=== PATIENT | male | born 1945 | race Caucasian/White ===

== ENCOUNTER 2019-08-13 19:30 | Inpatient (IN) | payer MEDICARE ==
[~2019-08-13] VITALS: Ht 177.8 cm; Wt 65.8 kg
[2019-08-13] MEDS ORDERED: LORazepam 2 MG TAB PO ONE (21:00)
[2019-08-13 22:15] LABS: HEMATOCRIT 38.2 % (42.0-52.0); HEMOGLOBIN 13.4 g/dl (13.5-17.5); MEAN CORPUSCULAR HEMOGLOBIN 33.5 pg (27.0-33.0); MEAN CORPUSCULAR HGB CONC 35.1 g/dl (32.0-36.5); MEAN CORPUSCULAR VOLUME 95.5 fl (80.0-96.0); PLATELET COUNT, AUTOMATED 150 10^3/uL (150-450); WHITE BLOOD COUNT 3.5 10^3/uL (4.0-10.0)
[2019-08-13] MEDS ORDERED: OLANZapine INTRAMUSCULAR 10 MG VIAL (S0166) IM ONE (22:15)
[2019-08-13 23:03] LABS: AMPHETAMINES LEVEL URINE NEGATIVE (NEGATIVE); BARBITURATES URINE NEGATIVE (NEGATIVE); BENZODIAZEPINES URINE NEGATIVE (NEGATIVE); CANNABINOIDS URINE NEGATIVE (NEGATIVE); COCAINE METABOLITE URINE NEGATIVE (NEGATIVE); METHADONE URINE NEGATIVE (NEGATIVE); OPIATES URINE NEGATIVE (NEGATIVE); PHENCYCLIDINE URINE NEGATIVE (NEGATIVE)
[2019-08-13 23:09] LABS: ACETAMINOPHEN LEVEL < 2.0 UG/ML (10.0-30.0); ALBUMIN 3.8 GM/DL (3.2-5.2); ALT/SGPT 28 U/L (12-78); BILIRUBIN,DIRECT 0.4 MG/DL (0.0-0.2); BILIRUBIN,TOTAL 1.8 MG/DL (0.2-1.0); BLOOD UREA NITROGEN 15 MG/DL (7-18); CALCIUM LEVEL 8.7 MG/DL (8.8-10.2); CARBON DIOXIDE LEVEL 26 MEQ/L (21-32); CHLORIDE LEVEL 109 MEQ/L (98-107); CK-MB VALUE MASS 2.8 NG/ML (<3.6); CPK CREATINE PHOSPHOKINASE 218 U/L (39-308); ETHYL ALCOHOL (ETHANOL) < 0.003 % (0.000-0.010); GLOMERULAR FILTRATION RATE > 60.0 (>42); GLUCOSE, FASTING 86 MG/DL (70-100); MB/CK RELATIVE INDEX 1.28 (< OR =4); POTASSIUM SERUM 3.8 MEQ/L (3.5-5.1); SALICYLATE LEVEL < 1.7 MG/DL (5.0-30.0); SODIUM LEVEL 140 MEQ/L (136-145); TOTAL PROTEIN 6.8 GM/DL (6.4-8.2); TROPONIN I 0.04 NG/ML (< 0.10)
[2019-08-14] MEDS ORDERED: REVL15CA PO (00:48)
[2019-08-14] MEDS ORDERED: PATIENT COMMENTS (00:48)
[2019-08-14] MEDS ORDERED: DONE10TA90 PO (00:48)
[2019-08-14] MEDS ORDERED: FLOM0.4C39 PO (00:48)
[2019-08-14] MEDS ORDERED: LOPE-25 PO (01:32)
[2019-08-14] MEDS ORDERED: MAGN250T22 PO (01:37)
[2019-08-14] MEDS ORDERED: ASPI81TA85 PO (01:37)
[2019-08-14] MEDS ORDERED: VITAD1000T PO (01:41)
[2019-08-14] MEDS ORDERED: LORazepam 2 MG TAB PO STA (10:48)
[2019-08-14] MEDS ORDERED: OLANZapine INTRAMUSCULAR 10 MG VIAL (S0166) As Ordered ONE (10:52)
[2019-08-14] MEDS ORDERED: ALPRAZolam 0.25 MG TAB PO ONE (11:00)
[2019-08-14] MEDS ORDERED: OLANZapine INTRAMUSCULAR 10 MG VIAL (S0166) IM ONE (11:00)
[2019-08-14] MEDS: ASPIRIN 81 MG ENTERIC TAB PO SCH (11:21)
[2019-08-14] MEDS: VITAMIN D 1,000 INTERNATIONAL UNITS TABLET PO SCH (11:22)
[2019-08-14] MEDS ORDERED: HALOPERIDOL 5 MG/ML VIAL (J1630) As Ordered ONE (14:52)
--- NOTE | 2019-08-14 15:12 | IPNPDOC ---
Date Seen The patient was seen on 08/14/19. Progress Note SUBJECTIVE: 74-year-old male with past medical history of Alzheimer's dementia and multiple myeloma (on Revlimid) was admitted overnight for combative behavior and concern for patient safety. Patient is normally cared for by her who is currently on a cruise, has been cared for by his kids over the past few weeks, has become increasingly combative with verbal abuse. Patient locked his kids outside the house last night, place very involved and brought the patient to the hospital. Patient does not recall these events, does not wish to discuss anything with me or his son at bedside, appears to not comprehend his current situation and wishing to leave the hospital immediately. Patient's son is concerned about the patient's safety as patient does not recall and understand what he is doing. Patient reports no complaints and is adamant about leaving, received Zyprexa and Ativan overnight, and another dose of Zyprexa was given in the morning, remains combative and requiring multiple people to keep him from harming others. Psychiatry was consulted regarding an official evaluation for capacity prior to allowing the patient to leave. PHYSICAL EXAMINATION: VITAL SIGNS: Please see below. Patient is pretty distraught about his current situation and refuses physical examination. LABORATORY DATA, IMAGING STUDIES, MICROBIOLOGY: Please see below. ASSESSMENT AND PLAN: 74-year-old male with past medical history of Alzheimer's dementia and multiple myeloma admitted overnight for combative behavior and safety concerns. PROBLEMS: 1. Combative behavior: History of Alzheimer's dementia, unaware of current situation, does not recall recent events that brought him to the hospital, jas ntly wishing to leave AGAINST MEDICAL ADVICE, PFS involved, psychiatry consulted regarding capacity, will attempt to keep patient calm until evaluated by psychiatry, with like to avoid restraining the patient against his will, but he has no outlook given his dementia and there is reasonable concern for the safety of patient and others around him based on what his son is telling me. PFS to arrange for placement if patient is to stay. 2. Alzheimer's dementia: Continue donepezil. 3. Multiple myeloma:. Continue Revlimid. VS, I&O, 24H, Fishbone Vital Signs/I&O Vital Signs Date Time Temp Pulse Resp B/P (MAP) Pulse Ox O2 Delivery O2 Flow Rate FiO2 08/13/19 19:36 97.2 67 18 147/60 (89) 99 Room Air Laboratory Data 24H LABS Laboratory Tests 2 08/13/19 19:52: Urine Color STRAW, Urine Appearance CLEAR, Urine pH 6.0, Urine Specific [place] 1.003, Urine Protein NEGATIVE, Urine Glucose (UA) NEGATIVE, Urine Ketones NEGATIVE, Urine Blood NEGATIVE, Urine Nitrite NEGATIVE, Urine Bilirubin NEGATIVE, Urine Urobilinogen 0.2, Urine Leukocyte Esterase NEGATIVE, Urine WBC (Auto) 1, Urine RBC (Auto) 2, Urine Hyaline Casts (Auto) 0, Urine Bacteria (Auto) NEGATIVE, Urine Squamous Epithelial Cells 0, Urine Sperm (Auto) 08/13/19 22:08: Nucleated Red Blood Cells % (auto) 0.0, Anion Gap 5L, Glomerular Filtration Rate > 60.0, Calcium Level 8.7L, Total Bilirubin 1.8H, Direct Bilirubin 0.4H, Aspartate Amino Transf (AST/SGOT) 22, Alanine Aminotransferase (ALT/SGPT) 28, Alkaline Phosphatase 51, Total Creatine Kinase 218, Creatine Kinase MB 2.8, Creatine Kinase MB Relative Index 1.28, Troponin I 0.04, Total Protein 6.8, Albumin 3.8, Albumin/Globulin Ratio 1.27, Thyroid Stimulating Hormone (TSH) 2.950, Salicylates Level < 1.7L, Urine Opiates Screen NEGATIVE, Urine Methadone Screen NEGATIVE, Acetaminophen Level < 2.0L, Urine Barbiturates Screen NEGATIVE, Urine Phencyclidine Screen NEGATIVE, Urine Amphetamines Screen NEGATIVE, Urine Benzodiazepines Screen NEGATIVE, Urine Cocaine Metabolite Screen NEGATIVE, Urine Cannabinoids Screen NEGATIVE, Ethyl Alcohol Level < 0.003 CBC/BMP Laboratory Tests 08/13/19 22:08 JOSEPHINE JERONIMO MD Aug 14, 2019 15:12
[2019-08-14] MEDS ORDERED: HALOPERIDOL 5 MG/ML VIAL (J1630) IM ONE (15:30)
[2019-08-14] MEDS: LENALIDOMIDE 15 MG PO SCH (16:00)
--- NOTE | 2019-08-14 18:52 | HPE ---
DATE OF ADMISSION: 08/13/2019 CHIEF COMPLAINT: Worsening aggressive and violent behavior secondary to Alzheimer's dementia. HISTORY OF PRESENTING ILLNESS: A 74-year-old male brought in by patient's son and daughter, escorted by a real estate instructor due to worsening violent behavior at home. The patient's , Ludmila, is currently on a cruise and unaware of the events currently. The patient's son, Real, provides most of the history and patient's daughter, Za, has been helping at home to watch him while the mother is away. According to the son, Real, who lives in [place], phone number [phone], around May patient became violent and upset while they were having [place] dinner with eight people in the house, all relatives. The patient got up and stood up and said, "Get the F out of my house." The mother has not had a break in 3 years and has been caring for him at home since they have been since the age of 14, over 60 years, she has been managing until recently in May when he has been much more violent and verbally abusive. The son, Real, and Za decided that the mother needed a break and promised her that they would take care of him at home taking turns. According to the son, he had taken care of him yesterday, he required a lot of de-escalation and reorientation as he was getting antsy and looking for his . They told him that she was taking a break and was on a cruise and that they will be watching him. The patient has been unable to pay attention watching television, usually gets very angry with his son when he said to change the channel, he could not remember what he was watching. When the son decided to leave, daughter, Za, was watching the father. She became very intimated by the father yelling out that "you should get out of my house, get the F out of here." He then called his son, who was on his way back home to [place], and he was already in [place] when the father asked "why Za was watching him and why the F she was there." The son then headed back to [place] as he was driving back to [place] and was already in [place] in order to help diffuse the situation. His sister left the house, waiting outside in the driveway as the father became much more verbal and intimidating. They called their aunt, who is their mother's sister, to come back into the house. She brought some food and settled him down. They brought a grandchild who works in the medical field to help redirect him. He then calmed down slightly. They had called the patient's neurologist, Dr. Jac Lopez, out of [facility], but his partner recommended no psychiatric admission, but to continue with evaluation in the ER. While the patient was with his [id number] in the home eating, he appeared to have calmed down slightly. Za and Real were outside driving around when they saw a real estate instructor, they flashed and flagged him down and discussed the case with him to see if the father could be brought in as a psychiatric emergency. The real estate instructor said that he would be around patrolling the area until 11:00, but he recommended to call 911. The aunt in the home said that he was becoming more agitated again, so they decided to call 911. They requested for an ambulance to be brought in with no flashing lights. The real estate instructor brought them in, however, and in the ER, he was found to be extremely agitated and was yelling and screaming about why he was in the hospital. He did receive intramuscular olanzapine 10 mg and Ativan 2 mg orally. Per the son at the bedside, Ativan did not do very much, he became much more agitated but the olanzapine seemed to have settled him down. He tells me that the mother has been dealing with this for the past 3 years, and they would prefer to have him home but they are afraid that he is becoming much more violent and she will be unable to care for him by herself. Despite providing help, they are requesting for possible placement, but should he respond to medical treatment with control of his violent behavior, they are open to working out a safe plan for home discharge. PAST MEDICAL HISTORY: Multiple myeloma, Alzheimer's dementia, vertigo, tinnitus, eustachian tube dysfunction, allergic rhinosinusitis. PAST SURGICAL HISTORY: Colonoscopy. ALLERGIES: No known drug allergies. HOME MEDICATIONS: - aspirin 81 mg daily - vitamin D 1000 units daily - donepezil 10 mg nightly - revlimid 15 mg daily - loperamide 2 mg twice a day as needed for diarrhea - magnesium 250 mg nightly SOCIAL HISTORY: The patient has been to his for over 50 years since they were teenagers. 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 He currently does not have an advanced directive. Per the son, he says that he and his sister are the healthcare proxies. The son, Real, lives in [place]; phone number is [phone]. The daughter, Za, phone number is [phone]. The , Ludmila, is currently on a cruise; phone number is [phone]. Denies any history of smoking. He usually has alcohol before dinner. No recreational drug use. FAMILY HISTORY: Noncontributory due to advanced age. REVIEW OF SYSTEMS: Could not be obtained as the patient is demented and agitated. PHYSICAL EXAMINATION: Temperature 97.2, pulse 67, respiratory rate 18, blood pressure 147/60, 99% on room air. Generally, the patient is agitated. He has anicteric sclerae. No jaundice. Face is symmetric. No jugular venous distention (JVD) or thyromegaly, or cervical lymphadenopathy. Dry mucous membranes. Lungs are clear to auscultation. No wheezing, rales, or rhonchi. Heart: S1, S2, sinus rhythm. Abdomen is soft, nontender, nondistended. Positive bowel sounds. Extremities: No cyanosis or clubbing. LABORATORY DATA: White count 3.5, hemoglobin 13, hematocrit 38, platelet count 150. Sodium 140, potassium 3.8, chloride 109, bicarbonate 26, BUN 15, creatinine 1.1, glucose 86, calcium 8.7, total bilirubin 1.8, direct bilirubin 0.4, AST 22, ALT 28, alkaline phosphatase 51, total CK 218, MB fraction 2.8, relative index 1.2, troponin 0.04, total protein 6.8, albumin of 3.8, TSH of 2.95. Urine toxicology screen is negative. Salicylate less than 1.7, acetaminophen less than 2, ethyl alcohol less than 0.003. Urinalysis is clear. 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 The patient's is currently on a cruise unaware of the current events. Per the son and the daughter, the patient has been increasingly much more verbally abusive, violent and intimidating, prompting them to bring him to the hospital for placement. Impression: 1. Alzheimer's dementia with violent behavior. Patient has been increasingly verbally abusive and intimidating to the family. According to the son, the mother needed a break. She has been caring for him for over 3 years by herself. The healthcare proxies are the daughter, aZ and the son, Real. We have looked for reasons for any acute delirium. Urinalysis is normal. CBC, metabolic panel, liver function tests are essentially unremarkable. According to the son, they are unable to care for him at home. He does follow with a neurologist, Dr. Reg Lopez, from the [facility], but has not been responding and slowly progressing despite Aricept, and the family is seeking assistance with potential placement. According to the son, "My father is a proud man, and he said to me: "I'm sorry, don't let me be pathetic." The family is agreeable to adjusting his medications. If patient responds, they are open to having him return home. They are, however, concerned about their elderly mother and for her being the only true caregiver at home. 2. Multiple myeloma. Continue on his home dose of revlimid. 3. History of BPH. Continue on Flomax. 4. Vitamin D deficiency. Continue on vitamin D supplementation. CODE STATUS: Currently still a FULL CODE. Healthcare proxy is Za, , daughter and son, Real, . Deep vein thrombosis (DVT) prophylaxis: Compression stockings. Diet: No added salt diet. MTDD
[2019-08-14 22:00] VITALS: BP 140/79
[2019-08-14] MEDS: TAMSULOSIN 0.4 MG CAP PO SCH (22:37)
[2019-08-14] MEDS: DONEPEZIL 5 MG TAB PO SCH (22:38)
[2019-08-15 06:00] VITALS: BP 136/74
[2019-08-15 06:18] LABS: HEMATOCRIT 39.8 % (42.0-52.0); HEMOGLOBIN 13.5 g/dl (13.5-17.5); MEAN CORPUSCULAR HEMOGLOBIN 32.8 pg (27.0-33.0); MEAN CORPUSCULAR HGB CONC 33.9 g/dl (32.0-36.5); MEAN CORPUSCULAR VOLUME 96.8 fl (80.0-96.0); PLATELET COUNT, AUTOMATED 147 10^3/uL (150-450); RED BLOOD COUNT 4.11 10^6/uL (4.30-6.10); WHITE BLOOD COUNT 3.3 10^3/uL (4.0-10.0)
[2019-08-15 06:41] LABS: BLOOD UREA NITROGEN 14 MG/DL (7-18); CALCIUM LEVEL 8.7 MG/DL (8.8-10.2); CARBON DIOXIDE LEVEL 27 MEQ/L (21-32); CHLORIDE LEVEL 113 MEQ/L (98-107); CREATININE FOR GFR 0.98 MG/DL (0.70-1.30); GLOMERULAR FILTRATION RATE > 60.0 (>42); GLUCOSE, FASTING 80 MG/DL (70-100); MAGNESIUM LEVEL 2.5 MG/DL (1.8-2.4); PHOSPHORUS LEVEL 2.8 MG/DL (2.5-4.9); POTASSIUM SERUM 3.9 MEQ/L (3.5-5.1); SODIUM LEVEL 145 MEQ/L (136-145)
[2019-08-15] MEDS: VITAMIN D 1,000 INTERNATIONAL UNITS TABLET PO SCH (09:13)
[2019-08-15] MEDS: ASPIRIN 81 MG ENTERIC TAB PO SCH (09:13)
[2019-08-15] MEDS: ALPRAZolam 0.5 MG TAB PO PRN ×2 (13:00→20:46)
[2019-08-15 14:00] VITALS: BP 121/71
[2019-08-15] MEDS: HALOPERIDOL 5 MG/ML VIAL (J1630) IM PRN ×2 (15:05→22:08)
[2019-08-15] MEDS: LENALIDOMIDE 15 MG PO SCH (16:08)
[2019-08-15] MEDS ORDERED: OLANZapine INTRAMUSCULAR 10 MG VIAL (S0166) IM PRN (16:15)
--- NOTE | 2019-08-15 20:19 | IPNPDOC ---
Date Seen The patient was seen on 08/15/19. Progress Note SUBJECTIVE: 74-year-old male with past medical history of Alzheimer's dementia and multiple myeloma (on Revlimid) was admitted overnight for combative behavior and concern for patient safety. Patient is normally cared for by her who is currently on a cruise, has been cared for by his kids over the past few weeks, has become increasingly combative with verbal abuse. Patient locked his kids outside the house last night, place very involved and brought the patient to the hospital. Patient does not recall these events, does not wish to discuss anything with me or his son at bedside, appears to not comprehend his current situation and wishing to leave the hospital immediately. Patient's son is concerned about the patient's safety as patient does not recall and understand what he is doing. Patient reports no complaints and is adamant about leaving, received Zyprexa and Ativan overnight, and another dose of Zyprexa was given in the morning, remains combative and requiring multiple people to keep him from harming others. Psychiatry was consulted regarding an official evaluation for capacity prior to allowing the patient to leave. 08/15/19 Patient is calmer today, comfortable in bed, without complaints, family at bedside, all questions answered. Son & daughter wish to keep the patient at the hospital as they do not know what to do when patient has his fits and becomes combative. Patient believes that he is currently on a cruise. PHYSICAL EXAMINATION: VITAL SIGNS: Please see below. Patient is pretty distraught about his current situation and refuses physical examination. LABORATORY DATA, IMAGING STUDIES, MICROBIOLOGY: Please see below. ASSESSMENT AND PLAN: 74-year-old male with past medical history of Alzheimer's dementia and multiple myeloma admitted overnight for combative behavior and safety concerns. PROBLEMS: 1. Combative behavior: History of Alzheimer's dementia, son & daughter feel that patient is unsafe at home, patient has multiple episodes during the day where he attempts to leave AMA, PFS involved, psychiatry consulted regarding capacity, continue PRN Zyprexa/Haldol & ativan for severe agitation, advised family to be at bedside for as long as they can, continue sitter, would like to avoid excessive medication as that will precipitate/prolong delirium and worsen the patient's condition. [facility] placement/disposition planning is underway. 2. Alzheimer's dementia: Continue donepezil. 3. Multiple myeloma:. Continue Revlimid. VS, I&O, 24H, Fishbone Vital Signs/I&O Vital Signs Date Time Temp Pulse Resp B/P (MAP) Pulse Ox O2 Delivery O2 Flow Rate FiO2 08/15/19 14:00 98.0 69 16 121/71 (88) 97 Room Air I&O- Last 24 Hours up to 6 AM 08/15/19 05:59 Intake Total 300 ml Output Total 0 ml Balance 300 ml Laboratory Data 24H LABS Laboratory Tests 2 08/15/19 05:38: Nucleated Red Blood Cells % (auto) 0.0, Anion Gap 5L, Glomerular Filtration Rate > 60.0, Calcium Level 8.7L, Phosphorus Level 2.8, Magnesium Level 2.5H CBC/BMP Laboratory Tests 08/15/19 05:38 JOSEPHINE JERONIMO MD Aug 15, 2019 20:19
[2019-08-15] MEDS: DONEPEZIL 5 MG TAB PO SCH (20:46)
[2019-08-15] MEDS: TAMSULOSIN 0.4 MG CAP PO SCH (20:46)
[2019-08-15 22:00] VITALS: BP 124/76
[2019-08-15] MEDS: RAMELTEON 8 MG TAB (ROZEREM) PO SCH (23:03)
[2019-08-15] MEDS: ACETAMINOPHEN 500 MG TAB PO SCH (23:03)
[2019-08-16] MEDS: ACETAMINOPHEN 500 MG TAB PO SCH ×3 (06:11→22:00)
[2019-08-16 06:50] VITALS: BP 131/78
--- NOTE | 2019-08-16 07:14 | MHCR ---
DATE OF CONSULTATION: 08/14/2019 I was consulted on this patient on 08/14/2019. Apparently, the patient was brought by the police to the hospital. Their concern was that the patient has severe dementia and no able to safely care for himself. Apparently he had locked the family out of the residence and was becoming more angry and physically abusive with family who wanted the patient to be a social admission. Of note is that I was not able to do an evaluation because when I went to see the patient he was fast asleep. He had been given multiple psychotropic medications because he had been agitated and wanting to leave. I did not feel that it was appropriate at that time for me to wake him up for an evaluation. [email or web address]
[2019-08-16] MEDS: VITAMIN D 1,000 INTERNATIONAL UNITS TABLET PO SCH (08:15)
[2019-08-16] MEDS: ASPIRIN 81 MG ENTERIC TAB PO SCH (08:15)
--- NOTE | 2019-08-16 14:43 | REP ---
CHEST, SINGLE VIEW: COMPARISON: 07/01/2016 There is no acute infiltrate or pulmonary edema. The heart is upper limits of normal in size. There is mild calcification and tortuosity of the thoracic aorta. Mediastinal silhouette is unchanged. There is colonic interposition under the right hemidiaphragm above the liver. IMPRESSION: No acute pulmonary disease. Electronically Signed by Pako Madrid MD 08/16/2019 03:27 P
--- NOTE | 2019-08-16 15:10 | IPNPDOC ---
Date Seen The patient was seen on 08/16/19. Progress Note SUBJECTIVE: 74-year-old male with past medical history of Alzheimer's dementia and multiple myeloma (on Revlimid) was admitted overnight for combative behavior and concern for patient safety. Patient is normally cared for by her who is currently on a cruise, has been cared for by his kids over the past few weeks, has become increasingly combative with verbal abuse. Patient locked his kids outside the house last night, place very involved and brought the patient to the hospital. Patient does not recall these events, does not wish to discuss anything with me or his son at bedside, appears to not comprehend his current situation and wishing to leave the hospital immediately. Patient's son is concerned about the patient's safety as patient does not recall and understand what he is doing. Patient reports no complaints and is adamant about leaving, received Zyprexa and Ativan overnight, and another dose of Zyprexa was given in the morning, remains combative and requiring multiple people to keep him from harming others. Psychiatry was consulted regarding an official evaluation for capacity prior to allowing the patient to leave. 08/15/19 Patient is calmer today, comfortable in bed, without complaints, family at bedside, all questions answered. Son & daughter wish to keep the patient at the hospital as they do not know what to do when patient has his fits and becomes combative. Patient believes that he is currently on a cruise. 08/16/19 Patient seen in the morning, sleeping, did not wake up as patient was up for most of the night and confused, as per nursing staff. He is having increased oral secretions/sputum production. Patient is also having difficulty eating when awake, swallow eval pending. PHYSICAL EXAMINATION: VITAL SIGNS: Please see below. GENERAL: No distress HEENT: Normocephalic, atraumatic, moist mucous membranes NECK: Supple CARDIOVASCULAR EXAMINATION: S1, S2, no murmurs RESPIRATORY EXAMINATION: Clear to auscultation, no wheezing ABDOMINAL EXAMINATION: Soft, nontender, nondistended, positive bowel sounds EXTREMITIES: No edema SKIN: No rash NEUROLOGICAL EXAMINATION: Unable to assess PSYCHIATRIC EXAMINATION: Calm LABORATORY DATA, IMAGING STUDIES, MICROBIOLOGY: Please see below. ASSESSMENT AND PLAN: 74-year-old male with past medical history of Alzheimer's dementia and multiple myeloma admitted overnight for combative behavior and safety concerns. PROBLEMS: 1. Combative behavior: History of Alzheimer's dementia, plan is for discharge home with home care tomorrow, continue Ativan for severe agitation, advised family to be at bedside for as long as they can, continue sitter, would like to avoid excessive medication as that will precipitate/prolong delirium and worsen the patient's condition. 2. Alzheimer's dementia: Continue donepezil. 3. Multiple myeloma:. Continue Revlimid. VS, I&O, 24H, Fishbone Vital Signs/I&O Vital Signs Date Time Temp Pulse Resp B/P (MAP) Pulse Ox O2 Delivery O2 Flow Rate FiO2 08/16/19 06:50 99.8 71 20 131/78 (95) Room Air 08/15/19 22:00 97 I&O- Last 24 Hours up to 6 AM 08/16/19 06:00 Intake Total 600 ml Output Total 0 ml Balance 600 ml JOSEPHINE JERONIMO MD Aug 16, 2019 15:10
[2019-08-16] MEDS: LENALIDOMIDE 15 MG PO SCH (16:57)
[2019-08-16] MEDS: ALPRAZolam 0.5 MG TAB PO PRN (16:57)
[2019-08-16 22:00] VITALS: BP 120/66
[2019-08-16] MEDS: RAMELTEON 8 MG TAB (ROZEREM) PO SCH (22:30)
[2019-08-16] MEDS: DONEPEZIL 5 MG TAB PO SCH (22:30)
[2019-08-16] MEDS: TAMSULOSIN 0.4 MG CAP PO SCH (22:30)
[2019-08-17] VITALS (13 sets, daily range): BP systolic 107–154; BP diastolic 58–119; O2SAT 93–96
[2019-08-17] MEDS: ACETAMINOPHEN 500 MG TAB PO SCH ×3 (05:17→23:29)
[2019-08-17 06:07] LABS: HEMATOCRIT 41.4 % (42.0-52.0); HEMOGLOBIN 13.8 g/dl (13.5-17.5); MEAN CORPUSCULAR HEMOGLOBIN 32.7 pg (27.0-33.0); MEAN CORPUSCULAR HGB CONC 33.3 g/dl (32.0-36.5); MEAN CORPUSCULAR VOLUME 98.1 fl (80.0-96.0); PLATELET COUNT, AUTOMATED 125 10^3/uL (150-450); RED BLOOD COUNT 4.22 10^6/uL (4.30-6.10)
[2019-08-17 06:23] LABS: BLOOD UREA NITROGEN 18 MG/DL (7-18); CALCIUM LEVEL 8.9 MG/DL (8.8-10.2); CARBON DIOXIDE LEVEL 26 MEQ/L (21-32); CHLORIDE LEVEL 111 MEQ/L (98-107); CREATININE FOR GFR 0.94 MG/DL (0.70-1.30); GLOMERULAR FILTRATION RATE > 60.0 (>42); GLUCOSE, FASTING 106 MG/DL (70-100); POTASSIUM SERUM 3.7 MEQ/L (3.5-5.1); SODIUM LEVEL 142 MEQ/L (136-145)
[2019-08-17 06:35] LABS: WHITE BLOOD COUNT 1.9 10^3/uL (4.0-10.0)
[2019-08-17] MEDS ORDERED: POTASSIUM CHLORIDE 10 MEQ SR TABLET PO ONE (08:15)
[2019-08-17] MEDS: VITAMIN D 1,000 INTERNATIONAL UNITS TABLET PO SCH (09:04)
[2019-08-17] MEDS: ASPIRIN 81 MG ENTERIC TAB PO SCH (09:04)
[2019-08-17] MEDS ORDERED: traZODone 25MG PER 1/2 TABLET PO PRN (09:30)
[2019-08-17] MEDS: traZODone 100 MG TAB PO SCH ×2 (09:40→23:28)
[2019-08-17] MEDS ORDERED: VARIBAR NECTAR 40% w/v 240ML SUSP BTL As Ordered ONE (11:34)
[2019-08-17] MEDS ORDERED: E-Z-PAQUE 96% w/w SUSP 176GM BTL As Ordered ONE (11:34)
[2019-08-17] MEDS ORDERED: VARIBAR PUDDING 40% w/v 230ML TUBE As Ordered ONE (11:34)
--- NOTE | 2019-08-17 12:14 | ECGEPIP ---
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
[2019-08-17 13:55] LABS: ATYPICAL LYMPH 21 % (0-5); EOSINOPHILS 1 % (0-3); LYMPHOCYTES 29 % (16-44); METAMYELOCYTES 1 % (0-0); MONOCYTES 7 % (0-5); MYELOCYTES 1 % (0-0); NEUTROPHILS 24 % (28-66)
[2019-08-17 13:56] LABS: OVALOCYTES 1+; PLATELET ESTIMATE DECREASED (NORMAL)
--- NOTE | 2019-08-17 14:37 | REP ---
Examination Requested: Cookie Swallow Reason For Exam: Evaluate for aspiration The procedure was performed by KILO Robert, under the direct supervision of Dr. Mcmillan. The procedure was performed with Naz Parrish from speech pathology present. 5 ml aliquots of thin, honey and pudding consistency barium was administered. Aspiration was visualized with both thin and honey thick consistency barium. The detailed report of this examination will be provided by speech pathology. 2.9 minutes of fluoroscopy time was utilized for this procedure. Reviewed by KILO Miguel 08/17/2019 01:45 P Electronically Signed by Keo Mcmillan MD 08/17/2019 02:29 P
--- NOTE | 2019-08-17 15:47 | REP ---
Portable chest, 03:15 p.m., single AP view with the patient sitting: Comparison is 08/16/2019. The lung muse are clear. The cardiac size is normal. The darrion, mediastinum, and skeletal structures are unremarkable. Impression: Negative portable chest. There is no interval change. Electronically Signed by Pako Mariee MD 08/17/2019 03:38 P
[2019-08-17] MEDS: LENALIDOMIDE 15 MG PO SCH (16:00)
[2019-08-17] MEDS ORDERED: NS 1,000 ML IV SCH (20:30)
--- NOTE | 2019-08-17 20:31 | IPNPDOC ---
Date Seen The patient was seen on 08/17/19. Progress Note SUBJECTIVE: 74-year-old male with past medical history of Alzheimer's dementia and multiple myeloma (on Revlimid) was admitted overnight for combative behavior and concern for patient safety. Patient is normally cared for by her who is currently on a cruise, has been cared for by his kids over the past few weeks, has become increasingly combative with verbal abuse. Patient locked his kids outside the house last night, place very involved and brought the patient to the hospital. Patient does not recall these events, does not wish to discuss anything with me or his son at bedside, appears to not comprehend his current situation and wishing to leave the hospital immediately. Patient's son is concerned about the patient's safety as patient does not recall and understand what he is doing. Patient reports no complaints and is adamant about leaving, received Zyprexa and Ativan overnight, and another dose of Zyprexa was given in the morning, remains combative and requiring multiple people to keep him from harming others. Psychiatry was consulted regarding an official evaluation for capacity prior to allowing the patient to leave. 08/15/19 Patient is calmer today, comfortable in bed, without complaints, family at bedside, all questions answered. Son & daughter wish to keep the patient at the hospital as they do not know what to do when patient has his fits and becomes combative. Patient believes that he is currently on a cruise. 08/16/19 Patient seen in the morning, sleeping, did not wake up as patient was up for most of the night and confused, as per nursing staff. He is having increased oral secretions/sputum production. Patient is also having difficulty eating when awake, swallow eval pending. 08/17/19 Patient with worsening cough, appears to be aspiration on his secretions but able to clear them at this time; awake and confused, without complaints. His has returned and he is calmer today. PHYSICAL EXAMINATION: VITAL SIGNS: Please see below. GENERAL: No distress HEENT: Normocephalic, atraumatic, moist mucous membranes NECK: Supple CARDIOVASCULAR EXAMINATION: S1, S2, no murmurs RESPIRATORY EXAMINATION: rhonchi appreciated, no wheezing ABDOMINAL EXAMINATION: Soft, nontender, nondistended, positive bowel sounds EXTREMITIES: No edema SKIN: No rash NEUROLOGICAL EXAMINATION: No focal deficits PSYCHIATRIC EXAMINATION: Calm LABORATORY DATA, IMAGING STUDIES, MICROBIOLOGY: Please see below. ASSESSMENT AND PLAN: 74-year-old male with past medical history of Alzheimer's dementia and multiple myeloma admitted overnight for combative behavior and safety concerns. PROBLEMS: 1. Dysphagia - patient aspirating on oral secretions, good cough reflex at this time, able to protect airway, cookie swallow showing aspiration to thin & thick liquids, strict NPO for now, maintenance IV fluids, likely adverse effects of medication, will monitor for now. Will perform CT head tomorrow if no improvement in symptoms is noted. 2. Alzheimer's dementia: calmer today with at bedside, sedating medication has been discontinued for >24 hours, continue sitter, will avoid further sedation. 3. Multiple myeloma: hold Revlimid for now as he's NPO. VS, I&O, 24H, Fishbone Vital Signs/I&O Vital Signs Date Time Temp Pulse Resp B/P (MAP) Pulse Ox O2 Delivery O2 Flow Rate FiO2 08/17/19 06:00 98.7 70 20 121/67 (85) 89 Room Air I&O- Last 24 Hours up to 6 AM 08/17/19 06:00 Intake Total 0 ml Output Total 0 ml Balance 0 ml Laboratory Data 24H LABS Laboratory Tests 2 08/17/19 05:43: Neutrophils (%) (Auto) , Nucleated Red Blood Cells % (auto) 0.0, Neutrophils 24L, Band Neutrophils 16H, Lymphocytes (Manual) 29, Monocytes (Manual) 7H, Eosinophils (Manual) 1, Metamyelocytes 1H, Myelocytes 1H, Atypical Lymphocytes 21H, Ovalocytes 1+, Platelet Estimate DECREASED, Anion Gap 5L, Glomerular Filtration Rate > 60.0, Calcium Level 8.9 CBC/BMP Laboratory Tests 08/17/19 05:43 JOSEPHINE JERONIMO MD Aug 17, 2019 20:31
[2019-08-17] MEDS ORDERED: SODIUM CHLORIDE 0.9% 1000ML IV STA (21:22)
--- NOTE | 2019-08-17 21:26 | IPNPDOC ---
Text Note Date of Service The patient was seen on 08/17/19. NOTE TIME OF SERVICE 845PM I was asked to see this patient because his family was concerned that he is more lethargic. During my conversation with them he became more confused and desated to the 80s. At the time of the face to face visit he was lethargic and not answering questions or following commands. T 103.6 /HR 124 / BP 134/68 / O2 87% HEENT venti mask in place CVS tachycardic LUNGS expiratory rhonchi Plan: #AMS 2/2 Acute Hypoxic Respiratory Failure - Plan: transfer to ICU / ventimask / pulse ox/ neurochecks #Sepsis 2/2 suspected aspiration PNA - Plan; code sepsis / IVF / zosyn/ f/u CBC,BMP, lactic acid, blood cx, influenza and sputum cx VS,Fishbone, I+O VS, Fishbone, I+O Laboratory Tests 08/17/19 05:43 Vital Signs Date Time Temp Pulse Resp B/P (MAP) Pulse Ox O2 Delivery O2 Flow Rate FiO2 08/17/19 06:00 98.7 70 20 121/67 (85) 89 Room Air I&O- Last 24 Hours up to 6 AM 08/17/19 06:00 Intake Total 0 ml Output Total 0 ml Balance 0 ml CINDI MCNAMARA MD Aug 17, 2019 21:26
[2019-08-17] MEDS ORDERED: ISOVUE-370 76% 100ML VIAL (Q9967) As Ordered ONE (21:30)
[2019-08-17 22:19] LABS: ABG BASE EXCESS -0.5 (-2.0-2.0); ABG HCO3 22.8 MEQ/L (22.0-26.0); ABG PARTIAL PRESSURE CO2 33.7 mmHg (35.0-45.0); ABG PARTIAL PRESSURE O2 83.1 mmHg (75.0-100.0); ABG TOTAL CO2 23.9 MEQ/L (23.0-31.0); ABG pH (ARTERIAL) 7.449 UNITS (7.350-7.450)
--- NOTE | 2019-08-17 22:27 | REPVR ---
PROCEDURE INFORMATION: Exam: CT Chest With Contrast Exam date and time: 08/17/2019 9:41 PM Age: 74 years old Clinical indication: Dyspnea TECHNIQUE: Imaging protocol: Computed tomography of the chest with intravenous contrast. 3D rendering: MIP and/or 3D reconstructed images were created by the technologist. Radiation optimization: All CT scans at this facility use at least one of these dose optimization techniques: automated exposure control; mA and/or kV adjustment per patient size (includes targeted exams where dose is matched to clinical indication); or iterative reconstruction. Contrast material: ISOVUE 370; Contrast volume: 75 ml; Contrast route: IV; COMPARISON: CR PORTABLE CHEST X-RAY 2019-08-17 15:06 FINDINGS: Limitations: Artifact related to patient's arm position limits evaluation. Lungs: Left greater than right lower lobe pulmonary infiltrates. Pleural space: Unremarkable. No pneumothorax. No pleural effusion. Heart: Moderate coronary artery atherosclerosis. Question chronic left cardiac ventricular apex myocardial infarction. Aorta: Unremarkable. No aortic aneurysm. Lymph nodes: Unremarkable. No enlarged lymph nodes. Liver: Hepatic steatosis. Bones/joints: Unremarkable. No acute fracture. Soft tissues: Unremarkable. IMPRESSION: Left greater than right lower lobe pulmonary infiltrates. Electronically signed by: Magan Muse On 08/17/2019 22:27:22 PM
[2019-08-17 22:31] LABS: BASO % 1.1 % (0.0-1.0); HEMATOCRIT 40.7 % (42.0-52.0); HEMOGLOBIN 13.7 g/dl (13.5-17.5); LYMPH # 0.4 10^3/uL (1.5-5.0); LYMPH % 36.8 % (24.0-44.0); MEAN CORPUSCULAR HEMOGLOBIN 33.2 pg (27.0-33.0); MEAN CORPUSCULAR HGB CONC 33.7 g/dl (32.0-36.5); MEAN CORPUSCULAR VOLUME 98.5 fl (80.0-96.0); MONO # 0.1 10^3/uL (0.0-0.8); MONO % 9.5 % (0.0-5.0); NEUTROPHILS % 52.6 % (36.0-66.0); PLATELET COUNT, AUTOMATED 132 10^3/uL (150-450); RED BLOOD COUNT 4.13 10^6/uL (4.30-6.10)
[2019-08-17 22:32] LABS: NEUTROPHILS # 0.5 10^3/uL (1.5-8.5)
[2019-08-17] MEDS: HEPARIN SOD (PORCINE) 5000 UNITS/ML VIAL (J1644 PER 1000UNITS) SQ SCH (22:36)
[2019-08-17] MEDS: PIPERACILLIN/TAZOBACTAM SOD 3.375 GM in D5W MINI-BAG PLUS 50 ML IV SCH (22:36)
[2019-08-17 22:42] LABS: INFLUENZA A AMPLIFICATION POSITIVE (NEGATIVE); INFLUENZA B AMPLIFICATION NEGATIVE (NEGATIVE)
[2019-08-17] MEDS ORDERED: METOPROLOL 5 MG/5 ML VIAL IV STA (22:50)
[2019-08-17] MEDS: DONEPEZIL 5 MG TAB PO SCH (23:28)
[2019-08-17] MEDS: TAMSULOSIN 0.4 MG CAP PO SCH (23:28)
[2019-08-17] MEDS: RAMELTEON 8 MG TAB (ROZEREM) PO SCH (23:29)
[2019-08-17] MEDS ORDERED: METOPROLOL 5 MG/5 ML VIAL IV PRN (23:30)
[2019-08-17 23:48] LABS: ALT/SGPT 19 U/L (12-78); BILIRUBIN,TOTAL 4.2 MG/DL (0.2-1.0); BLOOD UREA NITROGEN 20 MG/DL (7-18); CALCIUM LEVEL 8.1 MG/DL (8.8-10.2); CARBON DIOXIDE LEVEL 24 MEQ/L (21-32); CHLORIDE LEVEL 114 MEQ/L (98-107); CHOLESTEROL LEVEL 105 MG/DL (< 200); CK-MB VALUE MASS < 1.0 NG/ML (<3.6); CPK CREATINE PHOSPHOKINASE 230 U/L (39-308); CREATININE FOR GFR 1.04 MG/DL (0.70-1.30); GLOMERULAR FILTRATION RATE > 60.0 (>42); GLUCOSE, FASTING 96 MG/DL (70-100); LDH LACTATE DEHYDROGENASE 108 U/L (87-241); MB/CK RELATIVE INDEX 0.43 (< OR =4); NT-PRO BNP 422 PG/ML (<450); POTASSIUM SERUM 3.7 MEQ/L (3.5-5.1); SODIUM LEVEL 146 MEQ/L (136-145); TOTAL PROTEIN 6.2 GM/DL (6.4-8.2); TRIGLYCERIDES LEVEL 77 MG/DL (<150); TROPONIN I 0.03 NG/ML (< 0.10)
[2019-08-18] VITALS (40 sets, daily range): BP systolic 73–147; BP diastolic 39–76
[2019-08-18] MEDS ORDERED: POTASSIUM PHOSPHATE INJ 18 MMOL in D5W 250 ML IV ONE ×2 (01:30→21:15)
[2019-08-18] MEDS: PIPERACILLIN/TAZOBACTAM SOD 3.375 GM in D5W MINI-BAG PLUS 50 ML IV SCH ×4 (03:06→22:02)
[2019-08-18] MEDS ORDERED: PIPERACILLIN/TAZOBACTAM SOD 3.375 GM in D5W MINI-BAG PLUS 50 ML IV SCH (04:00)
[2019-08-18 04:59] LABS: HEMATOCRIT 38.2 % (42.0-52.0); HEMOGLOBIN 12.7 g/dl (13.5-17.5); MEAN CORPUSCULAR HEMOGLOBIN 32.9 pg (27.0-33.0); MEAN CORPUSCULAR HGB CONC 33.2 g/dl (32.0-36.5); PLATELET COUNT, AUTOMATED 108 10^3/uL (150-450); RED BLOOD COUNT 3.86 10^6/uL (4.30-6.10)
[2019-08-18 05:00] LABS: WHITE BLOOD COUNT 0.8 10^3/uL (4.0-10.0)
[2019-08-18 05:19] LABS: BLOOD UREA NITROGEN 17 MG/DL (7-18); CALCIUM LEVEL 7.7 MG/DL (8.8-10.2); CARBON DIOXIDE LEVEL 21 MEQ/L (21-32); CHLORIDE LEVEL 116 MEQ/L (98-107); CREATININE FOR GFR 1.16 MG/DL (0.70-1.30); GLOMERULAR FILTRATION RATE > 60.0 (>42); GLUCOSE, FASTING 117 MG/DL (70-100); MAGNESIUM LEVEL 1.9 MG/DL (1.8-2.4); PHOSPHORUS LEVEL 2.2 MG/DL (2.5-4.9); POTASSIUM SERUM 3.5 MEQ/L (3.5-5.1); SODIUM LEVEL 146 MEQ/L (136-145)
[2019-08-18 05:23] LABS: BASO % 2.5 % (0.0-1.0); LYMPH # 0.3 10^3/uL (1.5-5.0); LYMPH % 32.1 % (24.0-44.0); MONO # 0.1 10^3/uL (0.0-0.8); MONO % 7.4 % (0.0-5.0)
[2019-08-18 05:24] LABS: NEUTROPHILS # 0.5 10^3/uL (1.5-8.5)
[2019-08-18] MEDS: ACETAMINOPHEN 500 MG TAB PO SCH ×2 (06:00→13:25)
[2019-08-18] MEDS: traZODone 100 MG TAB PO SCH (09:00)
[2019-08-18] MEDS: VITAMIN D 1,000 INTERNATIONAL UNITS TABLET PO SCH (09:00)
[2019-08-18] MEDS: ASPIRIN 81 MG ENTERIC TAB PO SCH (09:00)
[2019-08-18] MEDS ORDERED: OSELTAMIVIR PHOSPHATE 75 MG CAP (TAMIFLU) PO SCH (09:00)
[2019-08-18] MEDS: HEPARIN SOD (PORCINE) 5000 UNITS/ML VIAL (J1644 PER 1000UNITS) SQ SCH ×2 (09:42→22:01)
--- NOTE | 2019-08-18 10:53 | ECGEPIP ---
[facility] Test Date: 2019-08-17 Pat Name: JUNIOR MUNIZ Department: Room: [place] [address] Gender: Male [employer]: JOANNA : 1945 Requested By: JOSEPHINE Grubbs Order Number: [id number] Reading MD: Magan Fox Measurements Intervals Gordon Rate: 157 P: VA: 0 QRS: -9 QRSD: 91 T: 0 QT: 226 QTc: 365 Interpretive Statements ATRIAL FLUTTER WITH RAPID VENTRICULAR RESPONSE NONSPECIFIC ST & T-WAVE ABNORMALITY ABNORMAL RHYTHM ECG Increased heart rate and no longer in sinus rhythm compared with 08/17/2019 at 1120 hrs. Electronically Signed on 08-18-2019 10:53:36 EST by Magan Fox
--- NOTE | 2019-08-18 11:08 | IPNPDOC ---
Date Seen The patient was seen on 08/18/19. Progress Note SUBJECTIVE: 74-year-old male with past medical history of Alzheimer's dementia and multiple myeloma (on Revlimid) was admitted overnight for combative behavior and concern for patient safety. Patient is normally cared for by her who is currently on a cruise, has been cared for by his kids over the past few weeks, has become increasingly combative with verbal abuse. Patient locked his kids outside the house last night, place very involved and brought the patient to the hospital. Patient does not recall these events, does not wish to discuss anything with me or his son at bedside, appears to not comprehend his current situation and wishing to leave the hospital immediately. Patient's son is concerned about the patient's safety as patient does not recall and understand what he is doing. Patient reports no complaints and is adamant about leaving, received Zyprexa and Ativan overnight, and another dose of Zyprexa was given in the morning, remains combative and requiring multiple people to keep him from harming others. Psychiatry was consulted regarding an official evaluation for capacity prior to allowing the patient to leave. 08/15/19 Patient is calmer today, comfortable in bed, without complaints, family at bedside, all questions answered. Son & daughter wish to keep the patient at the hospital as they do not know what to do when patient has his fits and becomes combative. Patient believes that he is currently on a cruise. 08/16/19 Patient seen in the morning, sleeping, did not wake up as patient was up for most of the night and confused, as per nursing staff. He is having increased oral secretions/sputum production. Patient is also having difficulty eating when awake, swallow eval pending. 08/17/19 Patient with worsening cough, appears to be aspiration on his secretions but able to clear them at this time; awake and confused, without complaints. His has returned and he is calmer today. 08/18/19 Patient with oxygen desaturation overnight, workup positive for influenza and CT showing bilateral infiltrates concerning for aspiration pneumonia. Patient has just ICU for higher thought due to requirements. Patient seen in the morning, resting comfortably, on Vapotherm at 80% FiO2, all the family's questions were answered. PHYSICAL EXAMINATION: VITAL SIGNS: Please see below. GENERAL: No distress HEENT: Normocephalic, atraumatic, moist mucous membranes NECK: Supple CARDIOVASCULAR EXAMINATION: S1, S2, no murmurs RESPIRATORY EXAMINATION: Bibasilar rhonchi appreciated, no wheezing ABDOMINAL EXAMINATION: Soft, nontender, nondistended, positive bowel sounds EXTREMITIES: No edema SKIN: No rash NEUROLOGICAL EXAMINATION: No focal deficits PSYCHIATRIC EXAMINATION: Calm LABORATORY DATA, IMAGING STUDIES, MICROBIOLOGY: Please see below. ASSESSMENT AND PLAN: 74-year-old male with past medical history of Alzheimer's dementia and multiple myeloma admitted overnight for combative behavior and safety concerns. PROBLEMS: 1. Acute hypoxemic respiratory failure - secondary to aspiration pneumonia and influenza, continue Vapotherm and titrate FiO2 as needed to maintain oxygen saturation between 88-92%, continue Tamiflu and Zosyn, MRSA PCR screen, blood cultures pending, patient is neutropenic, nothing by mouth, NG tube placement with tube feeds. 2. Alzheimer's dementia: Continue donepezil 3. Multiple myeloma: Neutropenic, hold Revlimid, case discussed with patient's oncologist Dr. Oneill who recommends Neupogen 300 mcg daily. DVT prophylaxis: heparin subcutaneous. GI prophylaxis: Not needed VS, I&O, 24H, Fishbone Vital Signs/I&O Vital Signs Date Time Temp Pulse Resp B/P (MAP) Pulse Ox O2 Delivery O2 Flow Rate FiO2 08/18/19 08:00 35.0 80 08/18/19 08:00 100.2 74 22 112/57 (75) 99 08/18/19 05:04 HVNI-Vapotherm I&O- Last 24 Hours up to 6 AM 08/18/19 06:00 Intake Total 2850 ml Output Total 0 ml Balance 2850 ml Laboratory Data 24H LABS Laboratory Tests 2 08/17/19 22:04: Influenza Type A (RT-PCR) POSITIVEH, Influenza Type B (RT-PCR) NEGATIVE 08/17/19 22:07: Blood Gas Bicarbonate Standard 24.0, Arterial Blood pH 7.449, Arterial Blood Partial Pressure CO2 33.7L, Arterial Blood Partial Pressure O2 83.1, Arterial Blood Total CO2 23.9, Arterial Blood HCO3 22.8, Arterial Blood Base Excess -0.5, Arterial Blood Oxygen Saturation 96.0 08/17/19 22:14: Immature Granulocyte % (Auto) 0.0, Neutrophils (%) (Auto) 52.6, Lymphocytes (%) (Auto) 36.8, Monocytes (%) (Auto) 9.5H, Eosinophils (%) (Auto) 0.0, Basophils (%) (Auto) 1.1H, Neutrophils # (Auto) 0.5L, Lymphocytes # (Auto) 0.4L, Monocytes # (Auto) 0.1, Eosinophils # (Auto) 0.0, Basophils # (Auto) 0.0, Nucleated Red Blood Cells % (auto) 0.0, Lactic Acid Level 1.4 08/17/19 22:35: Anion Gap 8, Glomerular Filtration Rate > 60.0, Calcium Level 8.1L, Phosphorus Level 2.0#L, Total Bilirubin 4.2H, Aspartate Amino Transf (AST/SGOT) 17, Alanine Aminotransferase (ALT/SGPT) 19, Alkaline Phosphatase 38L, Lactate Dehydrogenase 108, Total Creatine Kinase 230, Creatine Kinase MB < 1.0, Creatine Kinase MB Relative Index 0.43, Troponin I 0.03, VA-Vlp-V-Type Natriuretic Peptide 422, Total Protein 6.2L, Albumin 3.0L, Albumin/Globulin Ratio 0.94L, Triglycerides Level 77, Cholesterol Level 105 08/17/19 22:44: Bedside Glucose (Misc Panel) 103 08/18/19 04:26: Immature Granulocyte % (Auto) 0.0, Neutrophils (%) (Auto) 58.0, Lymphocytes (%) (Auto) 32.1, Monocytes (%) (Auto) 7.4H, Eosinophils (%) (Auto) 0.0, Basophils (% ) (Auto) 2.5H, Immature Granulocyte # (Auto) 0.0, Neutrophils # (Auto) 0.5L, Lymphocytes # (Auto) 0.3L, Monocytes # (Auto) 0.1, Eosinophils # (Auto) 0.0, Basophils # (Auto) 0.0, Nucleated Red Blood Cells % (auto) 0.0, Platelet Estimate , Anion Gap 9, Glomerular Filtration Rate > 60.0, Calcium Level 7.7L, Phosphorus Level 2.2L, Magnesium Level 1.9 CBC/BMP Laboratory Tests 08/17/19 22:14 08/17/19 22:35 08/18/19 04:26 Microbiology Microbiology 08/18/19 Gram Stain - Final, Resulted 08/18/19 Sputum Culture, Resulted Pending 08/17/19 Blood Culture, Received Pending 08/17/19 Blood Culture, Received Pending JOSEPHINE JERONIMO MD Aug 18, 2019 11:08
[2019-08-18] MEDS: FILGRASTIM 300 MCG/0.5 ML SYRINGE (J1442 PER 1MCG) SC SCH (11:41)
[2019-08-18] MEDS: IPRATROPIUM 0.5MG/ALBUTEROL 2.5MG INH SOL UD 3ML (DUONEB)(J7620) NEB PRN (19:32)
[2019-08-18 20:52] LABS: ABG BASE EXCESS -2.4 (-2.0-2.0); ABG HCO3 19.6 MEQ/L (22.0-26.0); ABG O2 SATURATION 95.9 % (95.0-99.0); ABG PARTIAL PRESSURE CO2 26.5 mmHg (35.0-45.0); ABG PARTIAL PRESSURE O2 77.1 mmHg (75.0-100.0); ABG STANDARD HCO3 22.4 MEQ/L (22.0-26.0); ABG TOTAL CO2 20.4 MEQ/L (23.0-31.0); ABG pH (ARTERIAL) 7.487 UNITS (7.350-7.450)
[2019-08-18] MEDS ORDERED: PROPOFOL 1,000 MG/100 ML VIAL As Ordered ONE (20:58)
[2019-08-18] MEDS ORDERED: ETOMIDATE INJ 20MG/10ML VIAL As Ordered ONE (20:58)
[2019-08-18] MEDS ORDERED: SUCCINYLCHOLINE INJ 200 MG/10 ML VIAL (J0330) As Ordered ONE (20:59)
[2019-08-18] MEDS ORDERED: OSELTAMIVIR 6 MG/ML SUSP PO SCH (21:00)
[2019-08-18] MEDS ORDERED: NOREPINEPHRINE 4 MG/4 ML AMP As Ordered ONE (21:14)
[2019-08-18] MEDS ORDERED: NOREPINEPHRINE BITARTRATE 8 MG in D5W 492 ML IV SCH (21:15)
--- NOTE | 2019-08-18 21:15 | IPNPDOC ---
Text Note Date of Service The patient was seen on 08/18/19. NOTE TIME OF SERVICE 855PM We were asked to evaluate the patient bc his O2 sats dropped to about 86% despite max doses of vapotherm. On my eval he was altered and not responsive & h ad decreased breath sounds bilaterally. NC were in place #Acute Hypoxemic Respiratory Failure Plan: Consult Anesthesia to intubate / vent support / chlorhexidine, PPI, hand / f/u post intubation chest xray & ABG / per Levophed for possible hypotension VS,Fishbone, I+O VS, Fishbone, I+O Laboratory Tests 08/17/19 22:14 08/17/19 22:35 08/18/19 04:26 Vital Signs Date Time Temp Pulse Resp B/P (MAP) Pulse Ox O2 Delivery O2 Flow Rate FiO2 08/18/19 19:32 87 HVNI-Vapotherm 30.0 90 08/18/19 16:00 99.1 101 22 103/54 (70) I&O- Last 24 Hours up to 6 AM 08/18/19 05:59 Intake Total 2850 ml Output Total 0 ml Balance 2850 ml CINDI MCNAMARA MD Aug 18, 2019 21:15
--- NOTE | 2019-08-18 21:29 | ECHO ---
DATE OF PROCEDURE: 08/18/2019 Date of 1945 Age: 74 REFERRING PHYSICIAN: Dr. Coronado REASON FOR ECHOCARDIOGRAM: Shortness of breath. 2D MEASUREMENTS: IVS: 1.0 LV: 4.3 LVPW: 0.9 LA: 3.2 Aorta: 4.0 RV: 3.0 DOPPLER MEASUREMENTS: Peak velocity across the aortic valve: 1.4 m/s Peak velocity across the LVOT: 1.2 m/s Mitral E: 0.5, Mitral A: 0.8 Maximum tricuspid valve velocity: 2.4 m/s 2D COMMENTS: 1. Normal left ventricular size, wall thickness, and low normal global left ventricular systolic function. The estimated left ventricular systolic ejection fraction is 50-55%. 2. Normal left atrium. Normal right atrium and right ventricle. 3. The atrial septum appeared to be normal without evidence of defect or shunt. 4. Mildly enlarged aortic root at 4.0 cm. 5. No pericardial effusion seen. 6. Mildly calcified aortic valve with normal leaflet excursion. Mildly calcified mitral annulus with normal anterior mitral valve leaflet motion. Normal tricuspid valve and pulmonic valve. The proximal pulmonary artery branches were not well visualized. 7. The inferior vena cava was normal in size at 1.6 cm. DOPPLER: Doppler detects mild aortic regurgitation, trace mitral regurgitation, and trace to mild tricuspid regurgitation. The calculated pulmonary artery systolic pressure varies between 30-40 mmHg. Abnormal relaxation pattern was noted in limited views, consistent with some features of grade 1 left ventricular diastolic dysfunction. IMPRESSION 1. Low normal global left ventricular systolic function. There are some features of left ventricular diastolic dysfunction manifested by abnormal relaxation. 2. Aortic valve sclerosis with mild aortic regurgitation. A mildly enlarged aortic root at 4.0 cm was noted. 3. Mitral annulus calcification with trace mitral regurgitation. 4. Trace to mild tricuspid regurgitation with mild pulmonary hypertension. 5. Not mentioned above, the study was technically limited due to poor acoustic window. [facility]
[2019-08-18] MEDS ORDERED: SUCCINYLCHOLINE INJ 200 MG/10 ML VIAL (J0330) IV STA (21:41)
[2019-08-18] MEDS ORDERED: NS 500 ML IV ONE (21:45)
[2019-08-18] MEDS ORDERED: propofoL 200 MG/20 ML VIAL IV ONE (21:45)
[2019-08-18] MEDS: propofoL 1,000 MG in IV 1 EA IV SCH (21:57)
[2019-08-18 21:58] LABS: BASO % 2.9 % (0.0-1.0); HEMATOCRIT 40.1 % (42.0-52.0); HEMOGLOBIN 13.2 g/dl (13.5-17.5); LYMPH % 14.4 % (24.0-44.0); MEAN CORPUSCULAR HGB CONC 32.9 g/dl (32.0-36.5); MEAN CORPUSCULAR VOLUME 100.3 fl (80.0-96.0); MONO % 1.9 % (0.0-5.0); NEUTROPHILS % 79.8 % (36.0-66.0); PLATELET COUNT, AUTOMATED 113 10^3/uL (150-450)
[2019-08-18] MEDS: CHLORHEXIDINE GLUCONATE 0.12 % 15ML UDC (PERIDEX ORAL RINSE) MT SCH (22:00)
[2019-08-18 22:15] LABS: LYMPH # 0.2 10^3/uL (1.5-5.0); NEUTROPHILS # 0.8 10^3/uL (1.5-8.5)
[2019-08-18 22:17] LABS: ALBUMIN 2.6 GM/DL (3.2-5.2); CREATININE FOR GFR 1.56 MG/DL (0.70-1.30); GLOMERULAR FILTRATION RATE 46.3 (>42); TOTAL PROTEIN 5.9 GM/DL (6.4-8.2)
[2019-08-18] MEDS ORDERED: VANCOMYCIN HCL 1,000 MG, VIAL MATE ADAPTER 1 EACH in D5W 250 ML IV SCH (23:00)
[2019-08-18 23:19] LABS: ABG BASE EXCESS -2.3 (-2.0-2.0); ABG HCO3 19.6 MEQ/L (22.0-26.0); ABG O2 SATURATION 96.4 % (95.0-99.0); ABG PARTIAL PRESSURE CO2 26.2 mmHg (35.0-45.0); ABG PARTIAL PRESSURE O2 78.6 mmHg (75.0-100.0); ABG STANDARD HCO3 22.5 MEQ/L (22.0-26.0); ABG TOTAL CO2 20.4 MEQ/L (23.0-31.0); ABG pH (ARTERIAL) 7.492 UNITS (7.350-7.450)
--- NOTE | 2019-08-18 23:31 | PHACANCOPD ---
PHARMACY VANCOMYCIN DOSING Pt Demographics Demographics Patient Age:74 , Weight:84.090 , Gender: male Adjusted Body Weight Date: 08/18/19, Adjusted Body Weight: [~77] Kg Events Past 24 Hours Events Past 24 Hours: NO: Dialysis, Diuretic Therapy, Change in CrCl, Fever, Elevation in WBC, Pending Diagnostics, Pending Procedures, Other Vancomycin Vancomycin indication: RESPIRATORY Vancomycin Target Ranges: 15-20 mcg/ml Vancomycin Load Y/N: Yes Load Dose Date Time Vancomycin Load Dose: 2G Date:08/18/19 Time:23:00 Vancomycin Dose Date: 08/18/19. Current Vancomycin Dose: [1G IV Q24H] Intermittent Dosing?: No Labs Labs Item Value Date Time White Blood Count 1.9 10^3/uL L 08/17/19 0543 White Blood Count 1.0 10^3/uL L 08/17/19 2214 White Blood Count 0.8 10^3/uL *L 08/18/19 0426 White Blood Count 1.0 10^3/uL L 08/18/19 2141 Creatinine 1.04 MG/DL 08/17/19 2235 Creatinine 1.16 MG/DL 08/18/19 0426 Creatinine 1.56 MG/DL H 08/18/19 2141 Blood Urea Nitrogen 17 MG/DL 08/18/19 0426 Blood Urea Nitrogen 22 MG/DL H 08/18/19 2141 Micro Microbiology 08/18/19 Gram Stain - Final, Resulted 08/18/19 Sputum Culture, Resulted Pending 08/17/19 Blood Culture - Preliminary, Resulted No growth after 24 hours . All specim... 08/17/19 Blood Culture - Preliminary, Resulted No growth after 24 hours . All specim... Creatinine Clearance Date:08/18/19. Creatinine Clearance: [41.6ML/MIN]. Pending Labs Vancomycin trough 08/20/19 @22:00 Assessment and Plan Maintaining Current Dose?: Yes Reason for dose change: No Dose Change Pharmacist Note Pharmacist Note Date: 08/18/19. Pharmacist note: Pt is a 74 year old male being treated for pneumonia goal trough 15-20mcg/ml. The patient has not been treated with vancomycin here at [facility] in the past. Scr is currently elevated at 1.5mg/dl from a basline ~1mg/dl. To achieve goal a 2g loading dose will start 08/18 @ 23:00. Maintenance therapy will consist of 1g IV every 24h. A trough is scheduled 08/20/19 @22:00 prior to the third dose. We will continue to monitor and adjust the dose as needed. [facility] Aug 18, 2019 23:31
[2019-08-19] VITALS (21 sets, daily range): BP systolic 89–129; BP diastolic 50–67
[2019-08-19] MEDS ORDERED: VANCOMYCIN HCL 1,000 MG, VIAL MATE ADAPTER 1 EACH in D5W 250 ML IV ONE ×3
[2019-08-19] MEDS ORDERED: POTASSIUM CHLORIDE 10% LIQ 20 MEQ/15 ML UDC PO ONE (00:15)
[2019-08-19] MEDS: ACETAMINOPHEN 325 MG/10.15 ML UDC GT PRN ×2 (00:24→21:03)
[2019-08-19] MEDS: OSELTAMIVIR 6 MG/ML SUSP PO SCH ×3 (00:24→20:04)
[2019-08-19 04:47] LABS: HEMATOCRIT 35.2 % (42.0-52.0); HEMOGLOBIN 11.9 g/dl (13.5-17.5); MEAN CORPUSCULAR HEMOGLOBIN 33.4 pg (27.0-33.0); MEAN CORPUSCULAR HGB CONC 33.8 g/dl (32.0-36.5); MEAN CORPUSCULAR VOLUME 98.9 fl (80.0-96.0); PLATELET COUNT, AUTOMATED 113 10^3/uL (150-450); RED BLOOD COUNT 3.56 10^6/uL (4.30-6.10)
[2019-08-19 04:49] LABS: WHITE BLOOD COUNT 1.3 10^3/uL (4.0-10.0)
[2019-08-19] MEDS: PIPERACILLIN/TAZOBACTAM SOD 3.375 GM in D5W MINI-BAG PLUS 50 ML IV SCH ×3 (04:50→16:42)
[2019-08-19 05:11] LABS: ALBUMIN 2.2 GM/DL (3.2-5.2); BILIRUBIN,TOTAL 4.8 MG/DL (0.2-1.0); CALCIUM LEVEL 7.4 MG/DL (8.8-10.2); CREATININE FOR GFR 1.57 MG/DL (0.70-1.30); MAGNESIUM LEVEL 2.1 MG/DL (1.8-2.4); PHOSPHORUS LEVEL 2.5 MG/DL (2.5-4.9); POTASSIUM SERUM 3.5 MEQ/L (3.5-5.1); TOTAL PROTEIN 5.2 GM/DL (6.4-8.2)
[2019-08-19 05:52] LABS: ABG O2 SATURATION 94.8 % (95.0-99.0); ABG PARTIAL PRESSURE CO2 28.6 mmHg (35.0-45.0); ABG PARTIAL PRESSURE O2 71.9 mmHg (75.0-100.0); ABG STANDARD HCO3 21.1 MEQ/L (22.0-26.0); ABG TOTAL CO2 19.9 MEQ/L (23.0-31.0); ABG pH (ARTERIAL) 7.441 UNITS (7.350-7.450)
[2019-08-19] MEDS: propofoL 1,000 MG in IV 1 EA IV SCH ×2 (05:56→20:31)
[2019-08-19] MEDS: MIDAZOLAM INJ 2 MG/2 ML VIAL (J2250) IV PRN (06:14)
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
[2019-08-19] MEDS ORDERED: LACTATED RINGER'S 1000 ML IV ONE (08:45)
[2019-08-19] MEDS: LR 1,000 ML IV SCH (08:45)
[2019-08-19] MEDS: CHLORHEXIDINE GLUCONATE 0.12 % 15ML UDC (PERIDEX ORAL RINSE) MT SCH ×2 (09:04→20:05)
[2019-08-19] MEDS: HEPARIN SOD (PORCINE) 5000 UNITS/ML VIAL (J1644 PER 1000UNITS) SQ SCH ×2 (09:05→20:05)
[2019-08-19] MEDS: PANTOPRAZOLE 40MG INJ (PROTONIX) (C9113) IV SCH (09:05)
[2019-08-19] MEDS: D5W 1,000 ML IV SCH (10:18)
[2019-08-19] MEDS: FILGRASTIM 300 MCG/0.5 ML SYRINGE (J1442 PER 1MCG) SC SCH (10:55)
[2019-08-19] MEDS ORDERED: KCL 20MEQ IN 100ML SWI (KRUN) 20 MEQ in IV 1 EA IV ONE ×2 (11:00)
--- NOTE | 2019-08-19 11:53 | CCN ---
DATE: 08/19/2019 The patient was seen and examined this morning during bedside rounds. Overnight the patient had a low grade fever, T-max was 100.4. This morning his temperature was 99.6. He did have some tachypnea on the ventilator overnight and did require one dose of p.r.n. Versed without any significant hypotension. He continues to be intubated and mechanically ventilated and sedated. PHYSICAL EXAMINATION: Temperature 99.6, pulse 73, respirations 32, blood pressure is 95/50, O2 is 94% on 40% FiO2. Ins 1.2 liters, outs 215 mL. GENERAL: Patient is intubated and sedated, is responsive to painful stimuli, but is not opening his eyes or following commands. HEENT: Normocephalic, atraumatic. Pupils are pinpoint. Mucous membranes are moist. There is an NG tube in place and an ET tube in place. NECK: Supple. Trachea is midline. There is no palpable cervical adenopathy. CARDIOVASCULAR: Regular rate and rhythm. Normal S1, S2. Unable to appreciate any murmurs. RESPIRATORY: There are some coarse ventilator breath sounds bilaterally with some slight diminished breath sounds at the left base. There is no wheezing or rales noted. ABDOMEN: Soft, nontender, nondistended. Positive bowel sounds. EXTREMITIES: There is no lower extremity edema noted bilaterally. LABORATORY DATA: WBC 1.3, hemoglobin is 11.9, platelets 113. Chemistry - sodium is 148, potassium 3.5, chloride is 118, bicarb 24, BUN 23, creatinine 1.57, glucose is 133, magnesium is 2.1. ABG this morning showed a pH 7.441, pCO2 of 28.6, pO2 of 71.9. IMAGING STUDIES: Chest x-ray this morning shows ET tube in position and NG tube coursing below the diaphragm. There is somewhat improved aeration noted in the left lower lobe opacity with a small left pleural effusion. ASSESSMENT/PLAN: Mr. Dukes is a 74-year male with a history of Alzheimer's dementia and multiple myeloma who was initially admitted for behavioral reasons due to his dementia with increased agitation and combativeness. During this admission he was noted to have some dysphagia and difficulty with managing his oral secretions with concern for aspiration. The patient was also noted to be more neutropenic although he does have a history of leukopenia and neutropenia from his multiple myeloma. He was febrile and noted to be influenza A positive as well as found to have bilateral lower lobe infiltrates, left greater than right, concerning for a superimposed aspiration pneumonia. The patient had acute hypoxemic respiratory failure in the setting of his aspiration pneumonia and with difficulty managing his secretions. He was initially on Vapotherm in the ICU; however, he continued to decompensate and yesterday evening required intubation and mechanical ventilation. NEURO: History of Alzheimer's dementia. He is now intubated and sedated on mechanical ventilation. - Continue with propofol for sedation with Versed p.r.n. for agitation, titrate for a sedation scale of RASS -1. - Continue with donepezil via NG tube. CARDIO: The patient had some hypotension post intubation likely secondary to sedation as well as with positive pressure ventilation. He briefly required peripheral Levophed but was weaned off quickly and has maintain his blood pressure overnight without any vasopressor support. - The patient was noted to have some decreased urine output this morning. Will give a bolus of LR and start him on maintenance fluids with LR at 75 mL an hour. Will continue to monitor his blood pressure with a goal MAP above 65. - Will continue to monitor his ins and outs via Hilton. ID/PULMONARY: Patient with acute hypoxemic respiratory failure in the setting of aspiration pneumonia as well as influenza A. He required intubation and mechanical ventilation on the evening of 08/18/2019. - Continue with a mechanical ventilation with PRVC with settings of 440/16/40/8. - Continue daily chest x-rays and ABGs while intubated and continue vent bundle with head of bed elevation and chlorhexidine mouthwash. - Continue with Tamiflu renally dosed for his influenza for a total of 7 days. - Continue with Zosyn for aspiration pneumonia and will DC vancomycin as his MRSA screen was negative. - Will followup the results of his sputum cultures to continue to de-escalate antibiotics and followup his procalcitonin. - Continue with isolation precautions for influenza. RENAL: Patient noted to have some DURAN, likely prerenal. His urine output has decreased and so he will be started on maintenance fluids with LR at 75 mL an hour. He is also noted have hyperchloremia and hypernatremia likely iatrogenic from the normal saline that he was receiving. Will also start D5W at 50 mL an hour and followup his repeat chemistry this afternoon and continue to adjust his fluids depending on those results. - Will monitor electrolytes and replete as needed - continue with a free water flushes through his NG tube as well. GASTROINTESTINAL (GI): Will continue the NG tube and titrate up to goal tube feed rate with monitoring of residuals. - Continue proton pump inhibitor (PPI) for GI prophylaxis. HEME: Patient with history of multiple myeloma, was on REVLIMID as an outpatient. He does have history of neutropenia in the past and he was neutropenic likely in the setting of infection and sepsis. He was started on Neupogen and there has been some improvement in his absolute neutrophil count. Will continue with Neupogen for now. Continue to monitor his neutrophils. Will continue with neutropenic precautions. Deep vein thrombosis (DVT) prophylaxis. FULL CODE. Total critical care time spent, not including procedures, approximately 40 minutes. MTDD
[2019-08-19 13:19] LABS: CALCIUM LEVEL 7.8 MG/DL (8.8-10.2); CREATININE FOR GFR 1.51 MG/DL (0.70-1.30); GLOMERULAR FILTRATION RATE 48.1 (>42); POTASSIUM SERUM 3.6 MEQ/L (3.5-5.1)
--- NOTE | 2019-08-19 14:24 | REP ---
CHEST, SINGLE VIEW: Single view of the chest is performed. COMPARISON: 08/18/2019 Endotracheal tube and nasogastric tube are again noted. Sideport of the nasogastric tube is in the distal end of the esophagus. Tip of the endotracheal tube is between the clavicles and the heidi, approximately 4 cm above the heidi. Heart is not enlarged. Right lung is unchanged in appearance with mild basilar interstitial opacity. Patchy infiltrates are seen in the left lung base, possibly mildly improved since the prior study. Electronically Signed by Pako Madrid MD 08/19/2019 06:52 P
[2019-08-19] MEDS: IPRATROPIUM 0.5MG/ALBUTEROL 2.5MG INH SOL UD 3ML (DUONEB)(J7620) NEB PRN (15:48)
[2019-08-19] MEDS: DONEPEZIL 5 MG TAB NG SCH (20:04)
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
[2019-08-20] VITALS (30 sets, daily range): BP systolic 75–116; BP diastolic 51–65
[2019-08-20] MEDS: PIPERACILLIN/TAZOBACTAM SOD 3.375 GM in D5W MINI-BAG PLUS 50 ML IV SCH ×5 (00:09→23:08)
[2019-08-20 04:19] LABS: HEMATOCRIT 32.2 % (42.0-52.0); HEMOGLOBIN 10.7 g/dl (13.5-17.5); MEAN CORPUSCULAR HEMOGLOBIN 32.8 pg (27.0-33.0); MEAN CORPUSCULAR HGB CONC 33.2 g/dl (32.0-36.5); MEAN CORPUSCULAR VOLUME 98.8 fl (80.0-96.0); PLATELET COUNT, AUTOMATED 110 10^3/uL (150-450); RED BLOOD COUNT 3.26 10^6/uL (4.30-6.10); WHITE BLOOD COUNT 2.8 10^3/uL (4.0-10.0)
[2019-08-20 04:56] LABS: LYMPHOCYTES 11 % (16-44); NEUTROPHILS 86 % (28-66)
[2019-08-20 04:59] LABS: PLATELET ESTIMATE DECREASED (NORMAL)
[2019-08-20] MEDS: ACETAMINOPHEN 325 MG/10.15 ML UDC GT PRN ×2 (05:02→10:53)
[2019-08-20] MEDS: D5W 1,000 ML IV SCH (05:02)
[2019-08-20] MEDS: LR 1,000 ML IV SCH ×2 (05:02→17:32)
[2019-08-20 05:05] LABS: CALCIUM LEVEL 7.4 MG/DL (8.8-10.2); CREATININE FOR GFR 1.29 MG/DL (0.70-1.30); GLOMERULAR FILTRATION RATE 57.6 (>42); POTASSIUM SERUM 3.3 MEQ/L (3.5-5.1)
[2019-08-20 05:55] LABS: ABG BASE EXCESS -0.6 (-2.0-2.0); ABG HCO3 22.7 MEQ/L (22.0-26.0); ABG O2 SATURATION 95.1 % (95.0-99.0); ABG PARTIAL PRESSURE CO2 32.8 mmHg (35.0-45.0); ABG PARTIAL PRESSURE O2 73.1 mmHg (75.0-100.0); ABG STANDARD HCO3 23.9 MEQ/L (22.0-26.0); ABG TOTAL CO2 23.7 MEQ/L (23.0-31.0); ABG pH (ARTERIAL) 7.458 UNITS (7.350-7.450)
--- NOTE | 2019-08-20 07:16 | REP ---
CHEST, SINGLE VIEW: Single view of the chest is performed. Comparison made with prior exam the same day. Nasogastric tube has been advanced, and the sideport is just distal to the gastroesophageal junction. The remainder of the study is unchanged. Electronically Signed by Pako Madrid MD 08/20/2019 05:51 P
[2019-08-20] MEDS ORDERED: POTASSIUM CHLORIDE 10% LIQ 20 MEQ/15 ML UDC NG ONE (07:30)
--- NOTE | 2019-08-20 07:42 | REP ---
CHEST, SINGLE VIEW: Single view of the chest is performed. There is left basilar infiltrate, which is new compared to prior study of 08/17/2019. Right lung is clear. Nasogastric tube is seen with sideport just above the gastroesophageal junction. Endotracheal tube is seen with the tip just below the level of the clavicles. Heart does not appear to be significantly enlarged. Electronically Signed by Pako Madrid MD 08/20/2019 05:55 P
[2019-08-20] MEDS: HEPARIN SOD (PORCINE) 5000 UNITS/ML VIAL (J1644 PER 1000UNITS) SQ SCH ×2 (07:53→20:04)
[2019-08-20] MEDS: OSELTAMIVIR 6 MG/ML SUSP PO SCH ×2 (07:53→20:04)
[2019-08-20] MEDS: CHLORHEXIDINE GLUCONATE 0.12 % 15ML UDC (PERIDEX ORAL RINSE) MT SCH ×2 (07:53→20:03)
[2019-08-20] MEDS: PANTOPRAZOLE 40MG INJ (PROTONIX) (C9113) IV SCH (07:54)
[2019-08-20] MEDS: propofoL 1,000 MG in IV 1 EA IV SCH (09:24)
[2019-08-20] MEDS: FILGRASTIM 300 MCG/0.5 ML SYRINGE (J1442 PER 1MCG) SC SCH (09:58)
[2019-08-20] MEDS: MIDAZOLAM INJ 2 MG/2 ML VIAL (J2250) IV PRN ×2 (09:58→13:57)
--- NOTE | 2019-08-20 10:20 | REP ---
CHEST, SINGLE VIEW: Single view of the chest is performed and compared with prior study of 08/19/2019. Endotracheal tube is unchanged in position. Nasogastric tube is seen with sideport just distal to the gastroesophageal junction. Lung muse appear unchanged. Dense infiltrate in the left base is unchanged. Heart and mediastinum are unchanged. IMPRESSION: Stable exam. Electronically Signed by Pako Madrid MD 08/20/2019 06:31 P
[2019-08-20] MEDS: IBUPROFEN 600 MG TAB PO PRN (12:36)
--- NOTE | 2019-08-20 14:10 | ECGEPIP ---
[facility] Test Date: 2019-08-20 Pat Name: JUNIOR MUNIZ Department: Room: [place] [address] Gender: Male Natural Resource Manager: JOS : 1945 Requested By: JOSEPHINE Grubbs Order Number: [id number] Reading MD: Robyn Caba Measurements Intervals [place] Rate: 97 P: GA: 0 QRS: 2 QRSD: 100 T: 35 QT: 277 QTc: 352 Interpretive Statements ATRIAL FIBRILLATION NONSPECIFIC T-WAVE ABNORMALITY ABNORMAL RHYTHM ECG COMPARED TO 08/17/19 SLOWER HR Electronically Signed on 08-20-2019 14:09:53 EST by Robyn Caba
--- NOTE | 2019-08-20 15:02 | CR ---
DATE OF CONSULTATION: 08/20/2019 I was asked by Dr. Hudson to see Mr. Dukes for paroxysmal atrial fibrillation. HISTORY OF PRESENT ILLNESS: Mr. Dukes is a 74-year-old man who was initially admitted to [facility] for psychiatric indication for agitation in the setting of dementia, but then the situation was complicated by development of pneumonia. It is most likely aspiration pneumonia, even though he also tested positive for influenza type A. He developed fairly rapidly progressive respiratory failure and was intubated and transferred to the intensive care unit (ICU). During telemetry monitoring, it was noted that he had episodes of atrial fibrillation with modestly rapid tachycardiac response alternating with sinus rhythm and occasional episodes of bradycardia. This morning when I saw the patient, he has been so far in sinus rhythm with occasional premature atrial contractions (PACs). I was asked to see him because of this arrhythmic complication. PAST MEDICAL HISTORY: 1. Dementia. 2. Multiple myeloma, followed by hematology group from [place]. 3. The patient denies history of diabetes, dyslipidemia, congestive heart failure or coronary artery disease. He apparently was evaluated in our office, which I will review when I get access to my system, approximately a year ago and no abnormalities were found. The patient's reports that his resting heart rate is typically in bradycardiac range, typically around 50 beats per minute. SURGICAL HISTORY: Negative. SOCIAL HISTORY: The patient is , has is at bedside. He never smoked. There is no history of alcoholism and no history of drug use. FAMILY HISTORY: Noncontributory. His father as a tugboat pilot and his is not aware of any other family members from his father's side. His mother lived to be very elderly and did not have any cardiac problems. OUTPATIENT MEDICATIONS: - aspirin - vitamin D - revlimid - loperamide as needed No known allergies. REVIEW OF SYSTEMS: The patient's reports no recent events other than slowly progressive memory problem. Apparently at his baseline, he had no trouble with activities of daily living. He was feeding himself, dressing himself and taking care of his hygiene without any problems. PHYSICAL EXAMINATION: Mr. Dukes is a 74-year-old man who is currently intubated and sedated. Last documented blood pressure was 87/61, heart rate has been in 80s, sinus rhythm. He his temperature was 101.3 this morning. Saturation is 100% on 40% FiO2. His fluid balance yesterday was recorded about 4 liters positive. Weight is 74.5 kg. Jugular venous pulse does not look high. Lungs are reasonably clear on the right. On the left, somewhat diminished on the base with occasional crackles and rhonchi. Heart exam reveals regular rhythm. I do not appreciate any gallop, rub or murmur. Abdomen is soft and nontender. Extremities are free of edema. Peripheral pulses are good quality. Neurologic exam is unremarkable and limited because of his sedation. LABORATORY DATA: Basic metabolic panel this morning: Sodium 145, potassium 3.3, BUN 20, creatinine 1.3, GFR 57, glucose 131. He had ammonia level drawn that was normal. He had and N-terminal pro-BNP on 08/17/2019, which was 422. Troponin-I drawn on 08/13/2019 and again on 08/17/2019, both of which were normal. He had several ECGs, revealing initially sinus rhythm with first-degree atrioventricular (AV) block and then atrial fibrillation with rapid ventricular response. No significant ST-T abnormalities. An echocardiogram that was performed on 08/17/[address] Nichole and revealed left ventricular ejection fraction (LVEF) around 50-55% without any segmental wall motion abnormalities, mild aortic insufficiency, trace mitral insufficiency and mild pulmonary hypertension. It was a somewhat limited study. ASSESSMENT AND PLAN: Mr. Dukes is a 74-year-old man with dementia, multiple myeloma and now with influenza and probably aspiration left lower lobe pneumonia who had episodes of paroxysmal atrial fibrillation. He is now back in sinus rhythm and has been for several hours. At this point, I do not think we have to do any additional cardiac medications or testing. I think that the risk of anticoagulation in a short run outweighs his benefit. He is still thrombocytopenic and his hemoglobin is dropping, even though some of it is probably dilutional. If he continues to have episodes of atrial fibrillation after his condition improves, which hopefully will, then we will talk about need for long-term anticoagulation. Otherwise, supportive management will be continued.
--- NOTE | 2019-08-20 16:19 | CCN ---
DATE: 08/20/2019 The patient was seen, examined this morning during bedside rounds. Overnight the patient was febrile. Maximum temperature (T-max) was 101.3. This morning he continues to have a low grade fever at 100.7. Overnight he was also noted to have an episode of what appeared to be atrial fibrillation, which is new for the patient. He also had an episode of bradycardia, although he appeared to be sinus during that episode. His blood pressures have remained stable, although they were somewhat lower this morning. They did improve and his mean arterial pressure (MAP) has remained above 65 without any need of vasopressor support. The patient's propofol was weaned down and he was responsive and following commands appropriately, but then became agitated and required as needed Versed. PHYSICAL EXAMINATION: T-max 101.3, current temperature (T-current) 100.7, pulse 96, respirations 30- 34, blood pressure is 114/59, oxygen saturation 99% on the vent at 40% FiO2. INPUT AND OUTPUT: Input 5 liters, output 800 mL. GENERAL: Patient is intubated and sedated, is responsive to painful stimuli and when sedation was lowered, was following commands. HEENT: Normocephalic, atraumatic. Pupils are small and reactive. Mucous membranes are moist. There is a nasogastric (NG) tube in place an endotracheal (ET) tube in place. Neck is supple. Trachea is midline. No palpable cervical adenopathy. CARDIOVASCULAR: Irregularly irregular. Normal S1, S2. Unable to appreciate any murmurs. RESPIRATORY: There are some diminished breath sounds at the left base and some coarse ventilated breath sounds bilaterally with no significant wheezing or rales or rhonchi. ABDOMEN: Soft, nontender, nondistended. There are positive bowel sounds. EXTREMITIES: There is no lower extremity edema noted bilaterally. LABORATORY DATA: WBC is 2.8, hemoglobin 10.7, platelets are 110. Chemistry: Sodium is 145, potassium 3.3, chloride is 113, bicarbonate 27, BUN 20, creatinine is 1.29, glucose is 130. Arterial blood gas (ABG): pH is 7.458, pCO2 of 32.8, pO2 of 73.1. IMAGING STUDIES: Chest x-ray shows ET tube in position and NG tube, which is difficult to see if it is coursing below the diaphragm. There is a left lower lobe opacity noted. There is a possible faint infiltrate in the right lower lobe. ASSESSMENT AND PLAN: Mr. Dukes is a 74-year-old male with a history of all Alzheimer's dementia and multiple myeloma who was initially admitted for behavioral reasons due to dementia with increased agitation and combativeness. During his stay in the hospital, he was also noted to have some difficulty with swallowing and there was concern for possible aspiration. The patient was also more neutropenic, although he does have a history of leukopenia and neutropenia secondary to his multiple myeloma. The patient was found to have fever and was influenza A positive, as well as known to have bilateral lower lobe infiltrates, left greater than right, concerning for aspiration pneumonia. The patient had acute hypoxemic respiratory failure in the setting of his aspiration pneumonia and difficulty managing secretions. He was initially on Vapotherm; however, continued to decompensate and was intubated and started on mechanical ventilation on 08/18/2019. NEURO: History of Alzheimer's dementia. Is now intubated and sedated on mechanical ventilation. - Continue with propofol for sedation with Versed as needed for agitation to titrate a RASS of 2-3. - Continue with donepezil via NG tube. - Will perform a weaning trial and sedation vacation tomorrow morning. Will start the patient on Precedex drip to aid with weaning off of the propofol due to his history of agitation. CARDIO: The patient had hypotension post intubation secondary to sedation as well as with the positive pressure ventilation. He only briefly required peripheral Levophed, but has been off vasopressors since then and has maintained MAP above 65. - The patient was noted to have new onset of atrial fibrillation, likely in the setting of his infection and sepsis. He was also febrile during that time as well, which may have contributed. Appreciate cardiology consults and recommendations. He will need discussion about risks and benefits of anticoagulation for his atrial fibrillation, likely as an outpatient, but will follow up their recommendations. His heart rate currently appears to be rate controlled without any medications. - Will discontinue his maintenance fluids and continue to monitor his blood pressure and urine output and can give intravenous (IV) fluid boluses as needed. Would maintain a MAP above 65. - Continue monitor his ins and outs via [place]. INFECTIOUS DISEASE (ID)/PULMONARY: The patient with acute hypoxemic respiratory failure in the setting of aspiration pneumonia as well as influenza A. He was intubated and started on mechanical ventilation on the evening of 08/18/2019. - Continue with pressure-regulated volume control (PRVC) with settings of 440/16/40 and wean down the PEEP to 6. - Continue with daily chest x-ray and ABGs while intubated and continue vent bundle with head of bed elevation and chlorhexidine mouthwash. - Will perform a weaning trial tomorrow and a sedation vacation. - Continue with Tamiflu renally dosed with influenza for a total of seven days. - Continue with Zosyn for aspiration pneumonia. He does continue to have fevers, likely in the setting of influenza. Will follow up the results of his sputum and blood cultures, but would not change his antibiotics at this time. - Continue with Tylenol and will add ibuprofen as needed for his fever. - Will follow procalcitonin - Continue isolation precautions for influenza. RENAL: The patient had Acute kidney injury (DURAN), likely prerenal. He was started on IV fluids yesterday with lactated Ringer's (LR) and D5W. His creatinine appears to be improving as well as his a hypernatremia and hyperchloremia. - Will discontinue IV fluids and continue with free water flushes through NG tube and will continue to monitor his renal function and urine output. - Will continue to monitor electrolytes and replete as needed. GI: Continue with NG tube feeds. The patient is currently at goal - Continue with proton pump inhibitor (PPI) for GI prophylaxis. HEME: History of multiple myeloma, was previously on revlimid as an outpatient. The patient had worsening neutropenia likely in the setting of infection and sepsis. He was started on Neupogen and his ANC has recovered. Will discontinue the Neupogen. Continue with deep venous thrombosis (DVT) prophylaxis. FULL CODE. Total critical care time spent, not including any procedures, approximately 40 minutes. MTDD
[2019-08-20] MEDS ORDERED: LACTATED RINGER'S 1000 ML IV ONE (16:30)
[2019-08-20] MEDS ORDERED: NS 1,000 ML IV ONE (17:30)
[2019-08-20] MEDS ORDERED: NOREPINEPHRINE 4 MG/4 ML AMP As Ordered ONE ×2 (18:43→18:45)
[2019-08-20] MEDS: NOREPINEPHRINE BITARTRATE 8 MG in D5W 492 ML IV SCH (18:57)
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
[2019-08-20] MEDS: DONEPEZIL 5 MG TAB NG SCH (20:04)
[2019-08-21] VITALS (29 sets, daily range): BP systolic 2–130; BP diastolic 50–70
[2019-08-21] MEDS: MIDAZOLAM INJ 2 MG/2 ML VIAL (J2250) IV PRN ×5 (01:08→20:16)
[2019-08-21] MEDS: PIPERACILLIN/TAZOBACTAM SOD 3.375 GM in D5W MINI-BAG PLUS 50 ML IV SCH ×3 (03:23→16:20)
[2019-08-21] MEDS: propofoL 1,000 MG in IV 1 EA IV SCH (03:24)
[2019-08-21] MEDS: ACETAMINOPHEN 325 MG/10.15 ML UDC GT PRN ×2 (03:24→10:02)
[2019-08-21 04:44] LABS: HEMATOCRIT 32.5 % (42.0-52.0); HEMOGLOBIN 11.1 g/dl (13.5-17.5); MEAN CORPUSCULAR HEMOGLOBIN 33.4 pg (27.0-33.0); MEAN CORPUSCULAR HGB CONC 34.2 g/dl (32.0-36.5); MEAN CORPUSCULAR VOLUME 97.9 fl (80.0-96.0); PLATELET COUNT, AUTOMATED 114 10^3/uL (150-450); RED BLOOD COUNT 3.32 10^6/uL (4.30-6.10); WHITE BLOOD COUNT 3.8 10^3/uL (4.0-10.0)
[2019-08-21 05:05] LABS: BLOOD UREA NITROGEN 19 MG/DL (7-18); CALCIUM LEVEL 8.2 MG/DL (8.8-10.2); CARBON DIOXIDE LEVEL 26 MEQ/L (21-32); CHLORIDE LEVEL 111 MEQ/L (98-107); CREATININE FOR GFR 1.06 MG/DL (0.70-1.30); GLOMERULAR FILTRATION RATE > 60.0 (>42); GLUCOSE, FASTING 112 MG/DL (70-100); POTASSIUM SERUM 3.3 MEQ/L (3.5-5.1); SODIUM LEVEL 142 MEQ/L (136-145)
[2019-08-21 05:09] LABS: EOSINOPHILS 3 % (0-3); LYMPHOCYTES 8 % (16-44); METAMYELOCYTES 2 % (0-0); MONOCYTES 1 % (0-5); NEUTROPHILS 81 % (28-66); PLATELET ESTIMATE DECREASED (NORMAL)
[2019-08-21 05:10] LABS: TOXIC GRANULATION 1+
[2019-08-21 05:52] LABS: ABG HCO3 20.2 MEQ/L (22.0-26.0); ABG O2 SATURATION 95.8 % (95.0-99.0); ABG PARTIAL PRESSURE CO2 27.1 mmHg (35.0-45.0); ABG STANDARD HCO3 22.7 MEQ/L (22.0-26.0)
[2019-08-21] MEDS: LR 1,000 ML IV SCH ×2 (06:00→19:05)
[2019-08-21] MEDS: POTASSIUM CHLORIDE 10% LIQ 20 MEQ/15 ML UDC PO SCH ×2 (08:00→12:03)
[2019-08-21] MEDS: dexmedeTOMidine 200 MCG in IV 1 EA IV SCH (08:00)
--- NOTE | 2019-08-21 08:16 | IPN ---
DATE: 08/21/2019 Mr. Dukes's condition remains approximately the same. His renal function has recovered but he remained sedated, intubated and on small dose pressors. He has been alternating between sinus rhythm and atrial flutter or fibrillation. When he is in sinus rhythm, heart rate is in the 50s. When he is in atrial fibrillation then his heart rate is around 80 and 90 beats per minute. There were no pauses. Vital Signs: Blood pressure 85 to about 90 systolic heart rate as above. He is febrile. Temperature reached 102 rectally last night. Saturation 97% on 35% FiO2. His fluid balance yesterday was recorded as positive 4800. He made about 300 mL of urine today. He is sedated. His jugular venous pulse (JVP) does not look high. Lungs are diminished on the left base, some with some crackles. I do not appreciate any wheezing or rhonchi. Heart: Exam reveals currently irregular rhythm without obvious gallop, rub or murmur. Abdomen is soft. There is no peripheral edema. LABORATORY: Sodium 142, potassium 3.3, BUN 19, creatinine 1.14, glucose 112. 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 I was asked to see him because of episodes of atrial fibrillation. Initially, it looked quite transient but then during the day yesterday, it appears that the trend continues and he has had numerous episodes alternating with sinus rhythm. Even though he remains rate control it certainly increases the risk of stroke. His platelet count continues to be low but it is better than yesterday and it is over 100,000. At this point I think it is appropriate to anticoagulate the patient and in this setting I thing Lovenox probably would be the best choice. I will start giving anticoagulation tonight. It certainly can be adjusted as needed depending on his clinical condition.
--- NOTE | 2019-08-21 08:17 | REP ---
Portable chest x-ray: Single view. History: Post intubation. Comparison study: August 20, 2019 Findings: Endotracheal tube remains in good position at the level of the transverse aorta. An NG tube enters left upper quadrant of the abdomen. Monitoring electrodes and oxygen delivery tubing are seen. There is an extensive infiltrate in the left base in the lower lobe distribution with air bronchograms. This obscures the medial portion of the left hemidiaphragm and the descending thoracic aorta. Right lung is essentially clear. Impression: Large infiltrate left lower lobe again seen. Electronically Signed by Keo Mcmillan MD 08/21/2019 08:09 A
[2019-08-21] MEDS: DOXYCYCLINE HYCLATE 100 MG in D5W MINI-BAG PLUS 100 ML IV SCH ×2 (08:46→20:42)
[2019-08-21] MEDS: PANTOPRAZOLE 40MG INJ (PROTONIX) (C9113) IV SCH (08:46)
[2019-08-21] MEDS: CHLORHEXIDINE GLUCONATE 0.12 % 15ML UDC (PERIDEX ORAL RINSE) MT SCH ×2 (08:46→20:42)
[2019-08-21] MEDS: OSELTAMIVIR 6 MG/ML SUSP PO SCH ×2 (08:46→20:35)
[2019-08-21] MEDS: MICAFUNGIN SODIUM 100 MG in D5W MINI-BAG PLUS 100 ML IV SCH (09:52)
[2019-08-21] MEDS: IBUPROFEN 600 MG TAB PO PRN (10:47)
[2019-08-21] MEDS ORDERED: SUCCINYLCHOLINE INJ 200 MG/10 ML VIAL (J0330) As Ordered ONE (13:21)
--- NOTE | 2019-08-21 14:35 | REP ---
CHEST, SINGLE VIEW: Single view of the chest is performed status post bronchoscopy and right central venous catheter placement. Right central venous catheter is seen with tip in superior vena cava. There is no pneumothorax. Infiltrate left lung base is unchanged. Heart and mediastinum are unchanged. Endotracheal tube and nasogastric tube are again noted. Electronically Signed by Pako Madrid MD 08/21/2019 05:55 P
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
--- NOTE | 2019-08-21 18:44 | CCN ---
DATE 08/21/2019 CRITICAL CARE PROGRESS NOTE The patient was seen and examined this morning during bedside rounds. Overnight he continued to have fevers and has been getting Tylenol as well as ibuprofen as needed. The patient was also noted to be hypotensive overnight and required a very low dose of Levophed at 1 mcg a minute, which he was receiving peripherally. This morning he was down to 0.5 mcg per minute of Levophed but still requiring some small amount of vasopressors. The patient also continues to be in atrial fibrillation, although appeared to be rate controlled mostly overnight without additional medications. PHYSICAL EXAM. Temperature is 101.7, pulse is 90, respirations 32, blood pressure 85/61, oxygen saturation (O2 sat) 97% on 40% FiO2. Intake 6.1 liters, output 1.2 liters. General: The patient is intubated and sedated, is responsive to painful stimuli but not following commands currently. HEENT: Normocephalic, atraumatic. Pupils are small and reactive to light. Mucous membranes are moist. There is a nasogastric (NG) tube in place and an endotracheal (ET) tube in place. Neck is supple. Trachea is midline. No palpable cervical lymphadenopathy. Cardiovascular: Irregularly irregular, normal S1, S2. Unable to appreciate murmurs. Respiratory: There are diminished breath sounds at the left base and coarse ventilator breath sounds bilaterally with no significant wheezing or rhonchi. Abdomen is soft, nontender, nondistended. There is positive bowel sounds. Extremities: There is no lower extremity edema noted bilaterally. LABORATORY DATA: WBC 2.8, hemoglobin 11.1, platelets are 114. Chemistry: Sodium is 142, potassium 3.3, chloride is 111, bicarbonate 6, BUN 19, creatinine is 1.06, glucose is 112. ABG: pH of 7.490, pCO2 of 27.1, pO2 of 76. IMAGING: Chest x-ray shows ET tube in good position. The NG tube is entering the left upper quadrant of the abdomen. There is dense infiltrate in the left base with air bronchograms. There is a questionable infiltrate in the right lower base. ASSESSMENT AND PLAN: Mr. Dukes is a 74-year-old male with a history of Alzheimer's dementia and multiple myeloma who was initially admitted for behavioral reasons with increased agitation and combativeness. During his hospital stay, he was noted to have some dysphagia, and there was concern for possible aspiration. The patient was also noted to be more neutropenic and was found to have fever. He was influenza A positive and noted to have bilateral lower lobe infiltrates, left greater than right, concerning for aspiration pneumonia. The patient also had acute hypoxemic respiratory failure in the setting of his aspiration pneumonia and likely mucus plugging. He was initially on Vapotherm; however continued to decompensate and was intubated and started on mechanical ventilation on 08/18/2019. NEUROLOGIC: History of Alzheimer's dementia, is now intubated and sedated while on mechanical ventilator. - Continue propofol for sedation with Versed as needed for agitation to titrate to a [place] 2-3. - Continue with donepezil via NG tube. - Will consider a weaning trial and sedation vacation tomorrow morning. Will start him on Precedex drip to aid with weaning off the propofol due to his history of agitation and combativeness. CARDIOVASCULAR: The patient had hypotension post intubation, which was likely secondary to sedation. He was off of vasopressors. However, overnight the patient became hypotensive again and was given IV fluid boluses with minimal improvement. He was then started on Levophed with low dose at 1 mcg per minute. - Will place a central line to continue vasopressors and titrate to a mean arterial pressure (MAP) above 65. Some of his hypotension may be in the setting of his sepsis as well as due to the sedation that he is requiring. He does also have new onset atrial fibrillation and is alternating occasionally being bradycardic and tachycardiac. - Appreciate cardiology consult and recommendations. Patient continues to be in and out of atrial fibrillation. Therefore, after discussion with the family about risk of stroke with his of paroxysmal atrial fibrillation, he will be started on anticoagulation with Lovenox. He does have some thrombocytopenia but his platelet counts have remained above 100. - The patient's lactic acid was mildly elevated at 2.8. Will followup with a repeat lactic acid. INFECTIOUS DISEASE (ID)/PULMONARY: The patient had acute hypoxemic respiratory failure in the setting of influenza A as well as aspiration pneumonia. He was intubated and started on mechanical ventilation on the evening of 08/18/2019. - The patient continues to have fevers despite being on broad-spectrum antibiotics and Tamiflu. He does have a history of neutropenia and so may be at risk for other opportunistic infections organisms, such as fungal organisms. - Will add micafungin to his antibiotic regimen as well as add atypical coverage with doxycycline. - patients repeat procalcitonin trending up. will change zosyn to meropenem. - will check CMV serologies - Will continue with Tamiflu. - Will followup with beta-D glucan and galactomannan, as well as with urine Legionella antigen and Mycoplasma. - Continue with PRVC and will continue to wean down his FIO2 and PEEP as tolerated. He is currently on settings of 440/16/40 and 6. - The patient will also have a bronchoscopy performed at the bedside, which we discussed with the and she consented for. Will check BAL from his right lower lobe as well as from his left lower lobe and send for bacterial cultures as well as for fungal cultures. - Continue with daily chest x-rays and ABGs while intubated and continue with vent bundle care with head of bed elevation, chlorhexidine mouthwash. - Will attempt a weaning trial tomorrow and sedation vacation. - Continue with isolation precautions for influenza. RENAL: The patient had acute kidney injury, likely prerenal. He was given IV fluids, and his renal function had improved. His hypernatremia, and his hyperchloremia have also improved. - The patient was restarted on lactated Ringer's (LR) overnight and given additional IV fluid boluses given his hypotension. Will continue with LR for maintenance fluids as he does also have some hypokalemia and will continue with free water flushes through his NG tube. - Will continue to monitor electrolytes and replete as needed - Will continue to monitor his intake and output via [place]. GASTROINTESTINAL (GI): Continue with NG tube feeds, which he has been tolerating at goal. The patient did have a loose bowel movement but has not been having diarrhea. - Continue with proton pump inhibitor (PPI) for GI prophylaxis. HEMATOLOGIC (HEME): History of multiple myeloma. Was previously on Revlimid as an outpatient. The patient presented with neutropenia, likely in setting of infection and sepsis. He was on Neupogen and his ANC has recovered and so it has been discontinued. He does have some mild thrombocytopenia as well, likely in the setting of his infection as well. Will start him on Lovenox for anticoagulation for his atrial fibrillation and continue to monitor his counts. FULL CODE. TOTAL CRITICAL CARE TIME SPENT: Not including procedures, approximately 40 minutes MTDD
--- NOTE | 2019-08-21 18:52 | RO ---
DATE OF PROCEDURE: 08/21/2019 INDICATION: Acute respiratory failure and pneumonia. PREPROCEDURE DIAGNOSIS: Pneumonia. POSTPROCEDURE DIAGNOSIS: Pneumonia. PROCEDURE: Bronchoscopy. SURGEON: Lilo Eugene MD CORN CUTTER: ANESTHESIA: Patient is intubated and sedated with propofol. He received Versed 2 mg IV times two during the procedure as well as succinylcholine 50 mg. Informed consent was obtained with the patient's . The risks and benefits were discussed at length. A time-out was performed prior to the procedure. Cetacaine spray was used to anesthetize the airway and provide lubrication through the endotracheal (ET) tube. At bedside, bronchoscopy was performed then. The patient was noted in the right lung, particularly the right lower lobe, to have some blood-tinged mucus secretions. He did not have any endobronchial lesions noted, but his mucosa was somewhat friable. In the left lung, the patient was noted to have increased secretions and mucus plugging from the left lower lobe with again some friable mucosa. The patient had a bronchoalveolar lavage performed in the right lower lobe as well as in the left lower lobe. On the right lower lobe bronchoalveolar lavage, he did have some blood-tinged output but sequential aliquots did not show any increasing bloody lavage. Specimens were sent for culture. Estimated blood loss is less than 5 mL. Postprocedure chest x-ray showed unchanged findings from his initial x-ray in morning prior to procedure.
[2019-08-21] MEDS: MEROPENEM INJ 1 GM in IV 1 EA IV SCH (19:04)
[2019-08-21 20:05] LABS: APPEARANCE HAZY (CLEAR); COLOR PINK (COLORLESS); SOURCE RIGHT LOWER LOBE
[2019-08-21 20:06] LABS: SOURCE LEFT LOWER LOBE
[2019-08-21 20:07] LABS: APPEARANCE HAZY (CLEAR); COLOR PINK (COLORLESS)
[2019-08-21 20:15] LABS: MONOCYTES/MACROPHAGES, BAL 4 %
[2019-08-21 20:19] LABS: MONOCYTES/MACROPHAGES, BAL 8 %
[2019-08-21] MEDS: ENOXAPARIN 100MG/1ML SYRINGE (J1650) SC SCH (20:36)
[2019-08-21] MEDS: DONEPEZIL 5 MG TAB NG SCH (20:42)
[2019-08-22] VITALS (29 sets, daily range): BP systolic 88–136; BP diastolic 50–65
[2019-08-22] MEDS: ACETAMINOPHEN 325 MG/10.15 ML UDC GT PRN ×2 (01:43→16:20)
[2019-08-22] MEDS: MEROPENEM INJ 1 GM in IV 1 EA IV SCH ×3 (03:45→18:12)
[2019-08-22] MEDS: propofoL 1,000 MG in IV 1 EA IV SCH ×3 (04:24→23:30)
[2019-08-22 04:35] LABS: HEMATOCRIT 31.3 % (42.0-52.0); HEMOGLOBIN 10.5 g/dl (13.5-17.5); MEAN CORPUSCULAR HGB CONC 33.5 g/dl (32.0-36.5); MEAN CORPUSCULAR VOLUME 98.4 fl (80.0-96.0); PLATELET COUNT, AUTOMATED 107 10^3/uL (150-450); RED BLOOD COUNT 3.18 10^6/uL (4.30-6.10); WHITE BLOOD COUNT 4.7 10^3/uL (4.0-10.0)
[2019-08-22 04:56] LABS: EOSINOPHILS 2 % (0-3); LYMPHOCYTES 10 % (16-44); METAMYELOCYTES 1 % (0-0); MONOCYTES 7 % (0-5); NEUTROPHILS 78 % (28-66); PLATELET ESTIMATE NORMAL (NORMAL); TOXIC GRANULATION 1+
[2019-08-22 04:57] LABS: ANISOCYTOSIS 1+
[2019-08-22 05:00] LABS: BLOOD UREA NITROGEN 18 MG/DL (7-18); CALCIUM LEVEL 7.4 MG/DL (8.8-10.2); CARBON DIOXIDE LEVEL 26 MEQ/L (21-32); CHLORIDE LEVEL 114 MEQ/L (98-107); CREATININE FOR GFR 0.79 MG/DL (0.70-1.30); GLOMERULAR FILTRATION RATE > 60.0 (>42); GLUCOSE, FASTING 109 MG/DL (70-100); POTASSIUM SERUM 3.7 MEQ/L (3.5-5.1); SODIUM LEVEL 144 MEQ/L (136-145)
[2019-08-22 05:53] LABS: ABG BASE EXCESS -1.5 (-2.0-2.0); ABG HCO3 21.4 MEQ/L (22.0-26.0); ABG O2 SATURATION 98.7 % (95.0-99.0); ABG PARTIAL PRESSURE CO2 30.1 mmHg (35.0-45.0); ABG PARTIAL PRESSURE O2 144.8 mmHg (75.0-100.0); ABG STANDARD HCO3 23.2 MEQ/L (22.0-26.0); ABG TOTAL CO2 22.3 MEQ/L (23.0-31.0); ABG pH (ARTERIAL) 7.469 UNITS (7.350-7.450)
[2019-08-22] MEDS: LR 1,000 ML IV SCH (06:53)
[2019-08-22] MEDS: dexmedeTOMidine 200 MCG in IV 1 EA IV SCH ×2 (08:07→10:22)
[2019-08-22] MEDS: NOREPINEPHRINE BITARTRATE 8 MG in D5W 492 ML IV SCH (08:07)
[2019-08-22] MEDS: ENOXAPARIN 100MG/1ML SYRINGE (J1650) SC SCH ×2 (08:08→20:11)
[2019-08-22] MEDS: DOXYCYCLINE HYCLATE 100 MG in D5W MINI-BAG PLUS 100 ML IV SCH ×2 (08:08→20:10)
[2019-08-22] MEDS: OSELTAMIVIR 6 MG/ML SUSP PO SCH ×2 (08:08→20:11)
[2019-08-22] MEDS: PANTOPRAZOLE 40MG INJ (PROTONIX) (C9113) IV SCH (08:08)
[2019-08-22] MEDS: CHLORHEXIDINE GLUCONATE 0.12 % 15ML UDC (PERIDEX ORAL RINSE) MT SCH ×2 (08:08→20:11)
--- NOTE | 2019-08-22 08:34 | REP ---
Portable chest x-ray: Sitting AP view. History: Post intubation. Comparison study: August 21 2019. Findings: Endotracheal tube is seen in good position at the level of the transverse aorta. NG tube enters left upper quadrant. A right internal jugular central venous line is seen in the expected location of the superior vena cava. Oxygen delivery tubing and monitoring electrodes are seen. There is hazy alveolar opacity in the left lower chest consistent with infiltrate and/or atelectasis. The left hemidiaphragm is obscured today suggesting some degree of effusion as well, versus progressive consolidation . The right lung remains clear. Electronically Signed by Keo Mcmillan MD 08/22/2019 08:25 A
--- NOTE | 2019-08-22 09:03 | IPN ---
DATE: 08/22/2019 Mr. Dukes's condition remains approximately the same. Yesterday, he converted back to sinus rhythm around noontime and has remained in sinus rhythm since. He is quite bradycardic at times with heart rate around 50 beats per minute, but tolerated it well. He had bronchoscopy by Dr. Eugene and apparently there was a copious amount of thick secretions and some minimal degree of bleeding in the right lower lobe. The decision was to keep him intubated for this reason. Vital signs this morning, blood pressure 136/62. Heart rate as above. He is currently slightly febrile with a rectal temperature of 99.9. Saturation was 97% on 50% FiO2. His fluid balance yesterday was again positive. Weight is recorded 78.7 kg. He is sedated. Jugular venous pulse (JVP) is difficult to customer support manager. It does not look high though. Lungs sound fairly clear on the right, somewhat diminished on the left base. I do not appreciate any distinct wheezing. Heart exam regular rhythm without gallop, rub or murmur. Abdomen is soft. No edema. LABORATORIES: CBC: WBC count 4.7, hemoglobin 10.5, hematocrit 31, platelet count 107,000. Basic metabolic panel: Sodium 134, potassium 3.7, BUN 18, creatinine 0.8 and glucose 109. ASSESSMENT AND PLAN: Mr. Dukes is a 74-year-old man who is currently critically ill with respiratory failure, likely a combination of influenza plus aspiration pneumonia. I was asked to see him because of paroxysmal atrial fibrillation with episode of bradycardia while in sinus rhythm. So far, we have not seen any pauses and he is not overly bradycardic. Consequently, I do not believe we need to pursue any further interventions. As far as anticoagulation is concerned, I started him on Lovenox last night with slightly reduced dose because of his age and the thrombocytopenia. I will leave him on this for the foreseeable future until we see his condition evolves. Obviously, should there be any signs of bleeding we can always reconsider this decision.
[2019-08-22] MEDS: MICAFUNGIN SODIUM 100 MG in D5W MINI-BAG PLUS 100 ML IV SCH (09:23)
[2019-08-22] MEDS ORDERED: FUROSEMIDE 20 MG/2 ML VIAL (J1940) IV ONE (11:00)
--- NOTE | 2019-08-22 12:44 | IPNPDOC ---
Date Seen The patient was seen on 08/22/19. Progress Note SUBJECTIVE: 74-year-old male with past medical history of Alzheimer's dementia and multiple myeloma (on Revlimid) was initially admitted for combative behavior, requiring sedation. Patient developed influenza and aspiration pneumonia during his hospitalization, acute hypoxemic respiratory failure requiring intubation and mechanical ventilation. Patient was also hypotensive for a brief period of time, requiring low-dose vasopressors. He underwent bronchoscopy yesterday. 08/22/19 No acute events overnight, remains on mechanical ventilation, sedated with propofol, moving all extremities, unable to follow commands at this time, having increased secretions. PHYSICAL EXAMINATION: VITAL SIGNS: Please see below. GENERAL: No distress HEENT: Normocephalic, bilateral pinpoint pupils, ETT 25 cm at the lip CARDIOVASCULAR EXAMINATION: S1, S2, regular, no murmurs RESPIRATORY EXAMINATION: Bibasilar rhonchi, diminished LLL, no wheezing ABDOMINAL EXAMINATION: Soft, nontender, nondistended, positive bowel sounds EXTREMITIES: starting to develop edema SKIN: No rash NEUROLOGICAL EXAMINATION: sedated on mechanical ventilation PSYCHIATRIC EXAMINATION: Calm LABORATORY DATA, IMAGING STUDIES, MICROBIOLOGY: Please see below. ASSESSMENT AND PLAN: 74-year-old male with past medical history of Alzheimer's dementia and multiple myeloma admitted overnight for combative behavior and safety concerns. PROBLEMS: 1. Acute hypoxemic respiratory failure - secondary to aspiration pneumonia and influenza, remains intubated on mechanical ventilation, oxygenation improving, sedated w/ Propofol & Precedex, no longer on pressors, management as per Environmental Health Manager, continue Tamiflu, Zosyn, Micafungin and Doxycycline, MRSA PCR negative, blood cultures negative. 2. DURAN - Resolved with IV hydration 3. Afib/A flutter - rhythm alternating between NSR, Afib & Aflutter, currently in normal sinus rhythm, evaluated by Cardiology, anticoagulation with Lovenox. 4. Alzheimer's dementia: Continue donepezil via NGT. 5. Multiple myeloma: hold Revlimid, Neutropenia has resolved w/ Neupogen which has now been discontinued. DVT prophylaxis: Therapeutic Lovenox GI prophylaxis: PPI VS, I&O, 24H, Fishbone Vital Signs/I&O Vital Signs Date Time Temp Pulse Resp B/P (MAP) Pulse Ox O2 Delivery O2 Flow Rate FiO2 08/22/19 10:00 40 08/22/19 10:00 51 21 98/56 (70) 96 Ventilator 08/22/19 08:00 100.2 08/18/19 21:00 40.0 I&O- Last 24 Hours up to 6 AM 08/22/19 06:00 Intake Total 4454.2 ml Output Total 1430 ml Balance 3024.2 ml Laboratory Data 24H LABS Laboratory Tests 2 08/21/19 13:45: Bronchial Specimen Source LEFT LOWER LOBE, Bronchial Fluid WBC 3533H, Bronchoalveolar Lavage Appearance HAZY, Bronchoalveolar Lavage Color PINKH, Bronchoalveolar Lavage Neutrophils 89, Bronchoalveolar Lavage Lymphocytes 3, Broncho Lavage Monocytes/Macrophage 8 08/21/19 16:00: Lactic Acid Followup at 4 Hours 2.5*H 08/21/19 18:05: 08/21/19 22:35: Bedside Glucose (Misc Panel) 95 08/22/19 04:20: Neutrophils (%) (Auto) , Nucleated Red Blood Cells % (auto) 0.0, Neutrophils 78H, Band Neutrophils 2, Lymphocytes (Manual) 10L, Monocytes (Manual) 7H, Eosinophils (Manual) 2, Metamyelocytes 1H, Anisocytosis 1+, Macrocytosis 1+, Toxic Granulation 1+, Platelet Estimate NORMAL 08/22/19 05:00: Anion Gap 4L, Glomerular Filtration Rate > 60.0, Calcium Level 7.4L 08/22/19 05:36: Blood Gas Bicarbonate Standard 23.2, Arterial Blood pH 7.469H, Arterial Blood Partial Pressure CO2 30.1L, Arterial Blood Partial Pressure O2 144.8H, Arterial Blood Total CO2 22.3L, Arterial Blood HCO3 21.4L, Arterial Blood Base Excess - 1.5, Arterial Blood Oxygen Saturation 98.7 08/22/19 09:24: Lactic Acid Level 2.4*H CBC/BMP Laboratory Tests 08/22/19 04:20 08/22/19 05:00 Microbiology Microbiology 08/21/19 Fungal Smear, Received Pending 08/21/19 Fungal Culture, Received Pending 08/21/19 Gram Stain - Final, Resulted 08/21/19 Bronchoalveolar Lavage Culture, Resulted Pending 08/21/19 Gram Stain - Final, Resulted 08/21/19 Bronchoalveolar Lavage Culture, Resulted Pending 08/19/19 Blood Culture - Preliminary, Resulted No Growth after 48 hours. All Specime... 08/18/19 Gram Stain - Final, Complete 08/18/19 Sputum Culture - Final, Complete 08/17/19 Blood Culture - Preliminary, Resulted No Growth after 72 hours. All specime... 08/17/19 Blood Culture - Preliminary, Resulted No Growth after 72 hours. All specime... JOSEPHINE JERONIMO MD Aug 22, 2019 12:25
--- NOTE | 2019-08-22 13:09 | CCN ---
DATE: 08/22/2019 The patient was seen and examined this morning during bedside rounds. The patient has been weaned off of Levophed and his blood pressure has remained stable. The patient has continued to have low grade temperatures with a maximum temperature (t-max) overnight of 100.4, although this has improved compared to his previous fevers that he was having. The patient continues to have episodes of atrial fibrillation alternating with sinus bradycardia. This morning he was noted to have some increased thick secretions, which were copious from his endotracheal tube with suctioning. PHYSICAL EXAMINATION: Temperature maximum 100.4, current temperature 99.9, pulse is 49, respirations 25, blood pressure 136/62, oxygen sat 97% on 50% FiO2. Input 4.3 liters, output 1.2 liters. GENERAL: The patient is intubated and is sedated. With lessening of sedation, he is responsive to painful stimuli, moving extremities spontaneously but not following commands. HEENT is normocephalic, atraumatic. Pupils are small and reactive to light bilaterally. Mucous membranes are moist. His nasogastric tube is in place and ET tube in place. Neck is supple. Trachea is midline. There is no palpable cervical adenopathy. Cardiovascular: Irregularly irregular. Normal S1, S2. Unable to appreciate murmurs. Respiratory: There is diminished breath sounds at the left base and some coarse ventilator breath sounds bilaterally. Abdomen is soft, nontender, nondistended. There is positive bowel sounds. Extremities: There is no significant lower extremity edema noted bilaterally. LABORATORY DATA WBC 4.7, hemoglobin 10.5, platelets 107. Sodium is 144, potassium 3.7, chloride of 114, bicarbonate 26, BUN is 18, creatinine is 0.79, glucose is 109, calcium 7.4, pH is 7.469, pCO2 of 30.1, pO2 of 144.8. The BAL differential showed increased WBCs and a neutrophil predominant. IMAGING STUDIES: Chest x-ray this morning shows the ET tube in good position. NG tube coursing below the diaphragm. There is a right IJ triple lumen in place with the tip in the SVC. There is some opacity in the left lower lobe consistent with atelectasis, as well as some possible pleural effusion. There is some mild pulmonary vascular congestion noted. ASSESSMENT: Mr. Dukes is a 74-year-old male with history of Alzheimer's dementia and multiple myeloma who presented initially for behavioral reasons with increased agitation and combativeness. During his hospital stay, he was noted have dysphagia and there was concern for possible aspiration. The patient was also noted to be more neutropenic and was then found to have a fever. He was influenza A positive and noted to have bilateral lower lobe infiltrates, left greater than right, concerning for aspiration pneumonia. The patient had acute hypoxemic respiratory failure in the setting of aspiration pneumonia and mucus plugging and he was intubated and started on mechanical ventilation on 08/18/2019. 1. Neurologic: History of Alzheimer's dementia, now intubated and sedated while on the ventilator. - Continue propofol for sedation with Versed as needed for agitation and titrate to Teo II to III. - Continue with donepezil via NG tube. - We will continue with weaning trial and sedation vacation tomorrow. The patient was unable to be started on Presedex due to his bradycardia. 2. Cardiovascular: The patient was hypotensive initially post intubation, likely in the setting of sedation. He had been off of vasopressors. However, the evening before, the patient had some episodes of hypotension which did not improve with fluid boluses and he was started on Levophed at a very low dose. He did have some mild lactic acidosis and so he may have had a component of hypotension in the setting of his sepsis with possible septic shock. He did have a right IJ triple lumen placed for administration of vasopressors. The patient has since been weaned off of Levophed since yesterday afternoon and has been maintaining his blood pressures with MAP above 65. - The patient did have mildly elevated lactate today but he has been receiving lactated Ringer's as well. We will discontinue his IV fluids and we will followup with repeat lactic acid in 4 hours. - The patient does have evidence of some mild pulmonary vascular congestion on his chest x-ray this morning and he does have a small left pleural effusion noted. The patient has been significantly net positive during his stay and so we will give him a low dose of Lasix 20 mg IV to help with his fluid management. - Appreciate cardiology consult and recommendations. Patient is in paroxysmal atrial fibrillation but is rate controlled without the need for medications currently. He is on Lovenox for anticoagulation. 3. Infectious disease/pulmonary: The patient had acute hypoxemic respiratory failure in the setting of influenza A as well as from aspiration pneumonia. He had required intubation and mechanical ventilation on the evening of 08/18/2019. - The patient does have a history of neutropenia and he is at risk for certain opportunistic infectious organisms, such as fungal organisms, as well as CMV. Micafungin was added to the antibiotic regimen yesterday, as well as doxycycline for atypical coverage as he had continued to have fevers despite being on broad-spectrum antibiotics and Tamiflu. The patient's procalcitonin has also been trending up and so his Zosyn was brought into meropenem. - The patient's fever curve has improved, although he did have a low grade temperature overnight, it has not been as high as a previously was. - We will continue with doxycycline, meropenem and micafungin for now, as well as Tamiflu for his influenza A. - We will followup results of the CMV serology, as well as beta D glucan and galactomannan, urine Legionella antigen and Mycoplasma. - We will repeat a procalcitonin tomorrow morning to continue to trend for de-escalation of antibiotics. - Will continue the patient on mechanical ventilation with PRVC and will wean down his FIO2. He will be on settings of 440 / 15 / 40 and 6. - The patient did have a bronchoscopy performed yesterday, which showed some copious mucus secretions, particularly in the left lower lobe, as well as some blood-tinged secretions in the right lung. His BAL did show increased WBCs, as well as neutrophil predominant consistent with an acute infectious spray etiology. We will follow up the cultures from his BAL, including fungal cultures. - We will continue with a weaning trial tomorrow and sedation vacation as tolerated. - Continue with daily chest x-rays and ABGs while intubated and continue with vent bundle care with head elevation and chlorhexidine mouthwash. - Continue with droplet isolation precautions. 4. Renal: The patient had acute kidney injury, likely prerenal, which has resolved now with IV fluid hydration. - The patient has been significantly net positive during his stay. As his blood pressures have improved and he has evidence of some pulmonary congestion on imaging, we will give him a low dose of Lasix and monitor his urine output. - We will discontinue IV fluids and continue with free water flushes through his NG tube. - We will continue monitor electrolytes and replete as needed. 5. Gastrointestinal: The patient has an NG tube in place and has been tolerating NG tube feeds at goal rate. - Continue with proton pump inhibitor for gastrointestinal prophylaxis. 6. Hematology: The patient has a history of multiple myeloma and was previously on Revlimid as an outpatient. He presented with neutropenia, likely in the setting of his infection and sepsis. He was treated with Neupogen with recovery of his ANC and it has since been discontinued. - The patient is on Lovenox for anticoagulation for his atrial fibrillation. He does have some mild thrombocytopenia, but his platelet count has remained above 100. FULL CODE. Total critical care time spent, not being procedures, approximately 45 minutes.
[2019-08-22] MEDS: IBUPROFEN 600 MG TAB PO PRN (20:10)
[2019-08-22] MEDS: DONEPEZIL 5 MG TAB NG SCH (20:10)
[2019-08-23] VITALS (22 sets, daily range): BP systolic 85–145; BP diastolic 52–89; O2SAT 96
[2019-08-23] MEDS: MEROPENEM INJ 1 GM in IV 1 EA IV SCH ×3 (03:30→18:21)
[2019-08-23 04:53] LABS: HEMATOCRIT 31.7 % (42.0-52.0); HEMOGLOBIN 10.6 g/dl (13.5-17.5); MEAN CORPUSCULAR HEMOGLOBIN 32.7 pg (27.0-33.0); MEAN CORPUSCULAR HGB CONC 33.4 g/dl (32.0-36.5); MEAN CORPUSCULAR VOLUME 97.8 fl (80.0-96.0); PLATELET COUNT, AUTOMATED 124 10^3/uL (150-450); RED BLOOD COUNT 3.24 10^6/uL (4.30-6.10); WHITE BLOOD COUNT 4.1 10^3/uL (4.0-10.0)
[2019-08-23 05:11] LABS: BLOOD UREA NITROGEN 18 MG/DL (7-18); CALCIUM LEVEL 7.6 MG/DL (8.8-10.2); CARBON DIOXIDE LEVEL 28 MEQ/L (21-32); CHLORIDE LEVEL 111 MEQ/L (98-107); CREATININE FOR GFR 0.74 MG/DL (0.70-1.30); GLOMERULAR FILTRATION RATE > 60.0 (>42); GLUCOSE, FASTING 116 MG/DL (70-100); POTASSIUM SERUM 3.3 MEQ/L (3.5-5.1); SODIUM LEVEL 147 MEQ/L (136-145)
[2019-08-23 05:27] LABS: ATYPICAL LYMPH 1 % (0-5); EOSINOPHILS 3 % (0-3); LYMPHOCYTES 10 % (16-44); MONOCYTES 7 % (0-5); NEUTROPHILS 79 % (28-66)
[2019-08-23 05:29] LABS: PLATELET ESTIMATE DECREASED (NORMAL); TOXIC GRANULATION 1+
[2019-08-23 05:30] LABS: ANISOCYTOSIS 1+
[2019-08-23 06:07] LABS: ABG BASE EXCESS 0.7 (-2.0-2.0); ABG HCO3 23.9 MEQ/L (22.0-26.0); ABG O2 SATURATION 96.6 % (95.0-99.0); ABG PARTIAL PRESSURE CO2 33.1 mmHg (35.0-45.0); ABG PARTIAL PRESSURE O2 90.7 mmHg (75.0-100.0); ABG STANDARD HCO3 25.1 MEQ/L (22.0-26.0); ABG TOTAL CO2 24.9 MEQ/L (23.0-31.0); ABG pH (ARTERIAL) 7.476 UNITS (7.350-7.450)
[2019-08-23] MEDS: propofoL 1,000 MG in IV 1 EA IV SCH (07:18)
[2019-08-23] MEDS ORDERED: FUROSEMIDE 40 MG/4 ML VIAL (J1940) IV ONE (08:00)
[2019-08-23] MEDS ORDERED: KCL 10MEQ/100ML SWI (KRUN) 10 MEQ in IV 1 EA IV ONE (08:00)
[2019-08-23] MEDS ORDERED: POTASSIUM CHLORIDE 10 MEQ SR TABLET PO ONE (08:00)
[2019-08-23] MEDS ORDERED: POTASSIUM CHLORIDE 10% LIQ 20 MEQ/15 ML UDC PO ONE (08:15)
--- NOTE | 2019-08-23 08:30 | ROES ---
PROCEDURE NOTE DATE: 08/21/2019 PROCEDURE: Right internal jugular central line. INDICATION: Vasopressor support. PROCEDURE BLANKET WASHER: Waldo Dowell DO, PGY-1, supervised by Dr. Lilo Eugene. ATTENDING PHYSICIAN: Dr. Lilo Eugene was present throughout the entire procedure. CONSENT: Consent was obtained prior to the procedure. Indications, risks, and benefits were explained at length. PROCEDURE SUMMARY: A time-out was performed. My hands were washed immediately prior to the procedure. I wore a surgical cap, mask, protective eyewear, full gown, and sterile gloves throughout the procedure. The patient was placed in Trendelenburg position with right neck region prepped using chlorhexidine scrub and draped in a sterile fashion using a full drape and sterile probe cover employed. The medial and lateral head to the sternocleidomastoid muscle were identified as was the carotid pulse. The internal jugular vein was identified using the ultrasound as was the internal jugular artery. Anesthesia was achieved over the vein using 1% lidocaine. Using real-time out of plane guidance, introducer needle was inserted into the jugular vein under direct ultrasound visualization. Venous blood was withdrawn. The syringe was removed, and a guidewire was advanced into the introducer needle. The guidewire was visualized into the introducer needle. A small incision was made at the skin surface with a scalpel, and the introducer needle was exchanged for a dilator over the guidewire. After appropriate dilation was obtained, the dilator was exchanged over the wire for a triple-lumen central venous catheter. The wire was removed, and this catheter was sutured in place at 18 cm. A sterile SorbaView shield was placed over the catheter at the insertion site. The patient tolerated the procedure without any hemodynamic compromise. At time of procedure completion, all ports were aspirated and flushed properly. Postprocedure chest x-ray showed that the right central venous catheter was seen at the tip of the superior vena cava. ESTIMATED BLOOD LOSS: 10 mL ADDENDUM: I, Lilo Eugene, was present and supervised throughout the entire procedure and agree with the procedure report as detailed by the resident. Addendum: 08/30/2019 0855 Addendum: 08/30/2019 0905 omega CORDERO
--- NOTE | 2019-08-23 08:32 | IPN ---
DATE: 08/23/2019 Mr. Dukes is as about the same. He continues to be mostly bradycardic with heart rate around 50 beats per minute occasionally dipping into high 40s. He remains sedated and ventilated. Apparently, there is a tentative plan to attempt extubation today. Vital signs at my morning rounds. He was sedated. He would move all four extremities occasionally. I could not elicit any purposeful responses on verbal stimuli. Blood pressure 102/55, heart rate as above. He is afebrile, which is the first day. Saturation is 92-98% on 40% FiO2. Fluid balance yesterday was recorded slightly negative. Weight is 76.5 kg. Jugular venous pulse (JVP) does not look high. Lungs are reasonably clear on the right. On the left there are diminished breath sounds over base and occasional crackle. Heart exam reveals regular rhythm. I do not appreciate any gallop, rub or murmur. Abdomen is soft. Extremities are free of edema. LABORATORIES: WBC count 4.1, hemoglobin 10.6, hematocrit 31, platelet count 124,000, and basic metabolic panel sodium 147, potassium 3.3, BUN 18, creatinine 0.17 and glucose 116. Chest x-ray today is a portable film. It does show infiltrate in left lower lung field and I cannot rule out presence of left-sided pleural effusion, which seems likely. As a new finding there appears to be also some degree of infiltrate on right as well. ASSESSMENT AND PLAN: Mr. Dukes is a 74-year-old man, who has dementia and underlying multiple myeloma, who presented with altered mental status and then got sick in the form of respiratory failure due to influenza type A and also very likely left lower lobe aspiration pneumonia. I was asked to see him because of paroxysmal atrial fibrillation. Even when he was in atrial fibrillation he was with controlled rate and in last 24 hours he has been in sinus rhythm. He has not received any AV randall blocking medications. I initially planned not to administer any anticoagulation, but because 2 days ago he was frequently alternating between sinus rhythm and atrial fibrillation, I felt that the anticoagulation is probably more likely to help than harm and he has been on Lovenox adjusted for his age. I would continue anticoagulation at least few more days unless he has any bleeding complications. Even though he is quite bradycardic it is not reaching the point that I would consider placement of pacemaker. We will see what happens with his heart rate after he is extubated, and I suspect that when his sympathetic drive increases that his heart rate will speed up at least a little bit.
[2019-08-23] MEDS: DOXYCYCLINE HYCLATE 100 MG in D5W MINI-BAG PLUS 100 ML IV SCH ×2 (08:43→20:26)
[2019-08-23] MEDS: CHLORHEXIDINE GLUCONATE 0.12 % 15ML UDC (PERIDEX ORAL RINSE) MT SCH (08:44)
[2019-08-23] MEDS: OSELTAMIVIR 6 MG/ML SUSP PO SCH (08:45)
[2019-08-23] MEDS: PANTOPRAZOLE 40MG INJ (PROTONIX) (C9113) IV SCH (08:46)
[2019-08-23] MEDS: ENOXAPARIN 100MG/1ML SYRINGE (J1650) SC SCH ×2 (08:46→20:26)
--- NOTE | 2019-08-23 09:27 | REP ---
Portable chest x-ray: Single view. History: Post intubation. Comparison study August 22, 2019. Findings: Extensive infiltrates are seen in the lung bases bilaterally. This is unchanged on the left slightly increased on the right. NG tube enters left upper quadrant. Endotracheal tube is seen in good position terminating at the level of the aortic arch. A right IJ line is seen in place unchanged. Impression: Bibasilar infiltrates left greater than right. Electronically Signed by Keo Mcmillan MD 08/23/2019 09:19 A
[2019-08-23] MEDS: MICAFUNGIN SODIUM 100 MG in D5W MINI-BAG PLUS 100 ML IV SCH (10:08)
--- NOTE | 2019-08-23 12:42 | CCN ---
DATE: 08/23/2019 The patient was seen and examined this morning during bedside rounds. The patient had a low grade temperature in the evening yesterday with a maximum temperature (T-max) of 100.6. For the rest of overnight he has been afebrile. His temperature currently is afebrile. The patient does have episodes of bradycardia overnight but has remained hemodynamically stable off of pressors. Patient is intubated and sedated. With weaning of propofol, he is moving all extremities spontaneously and is opening eyes and appears to be tracking but is not following commands. The patient has had less copious secretions from his endotracheal tube. He does have some oral secretions which are just saliva. He was given Lasix IV yesterday and did have good urine output. He has also been having episodes of loose stools as well secondary to his tube feeds. Then go back to physical exam and after the ins and outs will PHYSICAL EXAM: Temperature maximum temperature (T-max) 100.6, T-current 97, pulse 50, respirations 20, blood pressure 102/55, O2 sat 98% on 40% FiO2. Input 3.5 liters, output 3.8 liters. GENERAL: Patient is intubated and sedated. He is responsive to painful stimuli. Is moving extremities spontaneously and appears to be tracking but is not following commands. HEENT: Normocephalic, atraumatic. Pupils reactive to light bilaterally. Mucous membranes are moist. NG tube is in place and a ET tube in place. NECK: Supple. Trachea is midline. There is no palpable cervical adenopathy. CARDIOVASCULAR: Irregularly irregular normal S1, S2. Unable appreciate murmurs. RESPIRATORY: There is improved breath sounds bilaterally with some diminished breath sounds more in the left base. ABDOMEN: Soft, nontender, nondistended. There is positive bowel sounds. EXTREMITIES: There is no significant lower extremity edema noted bilaterally. LABS: WBC 4.1, hemoglobin 10.6, platelets 124. Chemistry: Sodium is 147, potassium 3.3, chloride is 111, bicarb is 28, BUN is 18, creatinine is 0.74, glucose is 116 ABG pH 7.476, pCO2 of 32.1, pO2 of 90.7. IMAGING STUDIES: Chest x-ray this morning shows endotracheal tube (ET) tube in position with nasogastric (NG) tube coursing below the diaphragm. There is a right internal jugular (IJ) triple lumen in place in superior vena cava (SVC). There is opacity in the left lower lobe as well as likely small left pleural effusion. There is also some opacity in the right base. ASSESSMENT/PLAN: Mr. Dukes is a 74-year male with history of Alzheimer's dementia and multiple myeloma who presented initially for behavioral reasons with increased agitation and combativeness. During hospital stay, the patient was also noted have difficulty with swallowing with concern of possible aspiration. He was also noted more neutropenic and then developed a fever. He was influenza A positive and noted to have bilateral lower lobe infiltrates left greater than right concerning for aspiration pneumonia. The patient had acute hypoxemic respiratory failure in the setting of aspiration pneumonia and mucus plugging and he required intubation and mechanical ventilation on 08/18/2019 Neuro: History of Alzheimer's dementia is intubated and sedated while on the ventilator. - The patient's propofol will be weaned down for a sedation vacation for a weaning trial for potential extubation. - Continue with donepezil via NG tube. Cardiovascular: The patient did have some issues with hypotension requiring vasopressors briefly at a low dose with Levophed. Some of this may been in the setting of his sedation as well as with sepsis and possible septic shock. - The patient has a right IJ triple lumen in place. He has been off of vasopressors for more than 24 hours. Will continue to monitor and will likely be able to discontinue his a triple lumen if his blood pressures remained stable and he has peripheral access. - The patient was noted to be significantly net positive and there was some evidence of pulmonary vascular congestion as well as small left pleural effusion. He was given Lasix 20 mg IV yesterday and did have a significant diuresis but is not significantly net negative. Will give an additional dose today of Lasix IV to help with diuresis. - Appreciate cardiology consults or the patient's. The patient is in episodes of paroxysmal atrial fibrillation but has been mostly bradycardic and has not needed any medications for rate control currently. He is was started on Lovenox for anticoagulation. Infectious disease ID/Pulmonary: The patient with acute hypoxemic respiratory failure in setting of Influenza A as well as from aspiration pneumonia. The patient required intubation, mechanical ventilation on the evening of 08/18/2019 - the patient has been on pressure regulated volume control (PRVC) on the ventilator and was able to be weaned down on his oxygenation and has been tolerating that well. He has also had improvement in his copious secretions from the endotracheal tube. The patient was will be placed on a weaning trial today and if tolerated will be extubated to oxygen supplementation. - The patient does have a history of neutropenia and is at risk for certain outpatient infectious disorder such as fungal organism as well as cytomegalovirus (CMV). He was initially started on Tamiflu for his influenza A as well as on broad-spectrum antibiotics. The patient continue to have fevers and so antifungal coverage as well as atypical coverage was added with micafungin and doxycycline. His procalcitonin had also trended up despite being on the broad-spectrum antibiotics and so he was also broadened into meropenem from Zosyn. - Will followup his repeat procalcitonin today. His fever curve has improved although he does still have a low grade temperature. - Will continue with the current antibiotic regimen with doxycycline, meropenem, micafungin as well as Tamiflu. - Will followup results of the CMV serology as well as [id number] and galactomannan urine Legionella antigen and Mycoplasma. - If the patient continues to have fevers, would consider repeating CT chest to evaluate for any lung abscess or potential loculated effusion requiring drainage. His bedside ultrasound has shown only a small pleural effusion initially. - continue droplet isolation precautions. Renal: The patient had acute kidney injury (DURAN) initially likely prerenal which has resolved with IV fluid hydration. He has been significantly net positive and so was given IV Lasix for diuresis due to evidence of some pulmonary vascular congestion on his chest x-ray. - He did have significant urine output but is still not net negative significantly. Will give an additional IV dose of Lasix. - Will continue with free water flushes through his NG tube and will increase the free water flushes. - Will monitor electrolytes and replete as needed. Will repeat a BMP and magnesium this afternoon. GI: The patient has a NG tube in place and was getting tube feeds. Will hold tube feeds for extubation. - Continue proton pump inhibitor (PPI) for GI prophylaxis. Heme: The patient has a history of multiple myeloma and was previously on Revlimid as an outpatient which is on hold currently. He presented with neutropenia likely in the setting of sepsis infection. He was treated with Neupogen and has had recovery of his ANC and this has since been discontinued. - The patient is on Lovenox for anticoagulation for his atrial fibrillation. Will continue monitor for signs of bleeding. FULL CODE. Total critical care time spent not including procedures approximately 40 minutes. GIL
[2019-08-23] MEDS: HALOPERIDOL 5 MG/ML VIAL (J1630) IV PRN (16:03)
[2019-08-23] MEDS ORDERED: HALOPERIDOL 5 MG/ML VIAL (J1630) IV ONE (18:00)
[2019-08-23] MEDS ORDERED: DEXTROSE 50% 50 ML SYRINGE As Ordered ONE (18:44)
--- NOTE | 2019-08-23 18:46 | IPNPDOC ---
Date Seen The patient was seen on 08/23/19. Progress Note SUBJECTIVE: 74-year-old male with past medical history of Alzheimer's dementia and multiple myeloma (on Revlimid) was initially admitted for combative behavior, requiring sedation. Patient developed influenza and aspiration pneumonia during his hospitalization, acute hypoxemic respiratory failure requiring intubation and mechanical ventilation. Patient was also hypotensive for a brief period of time, requiring low-dose vasopressors. He underwent bronchoscopy yesterday. 08/22/19 No acute events overnight, remains on mechanical ventilation, sedated with propofol, moving all extremities, unable to follow commands at this time, having increased secretions. 08/23/19 Patient seen in the morning, remains sedated on mechanical ventilation, propofol up to 30 mcg/kg/min, secretions have decreased in volume, continues to require less support from the ventilator on a daily basis, currently down to 40% FiO2 and PEEP of 5. Not moving or following commands at this time. PHYSICAL EXAMINATION: VITAL SIGNS: Please see below. GENERAL: No distress HEENT: Normocephalic, bilateral pinpoint pupils, ETT 25 cm at the lip CARDIOVASCULAR EXAMINATION: S1, S2, regular, no murmurs RESPIRATORY EXAMINATION: diminished LLL, no wheezing ABDOMINAL EXAMINATION: Soft, nontender, nondistended, positive bowel sounds EXTREMITIES: Trace edema SKIN: No rash NEUROLOGICAL EXAMINATION: sedated on mechanical ventilation PSYCHIATRIC EXAMINATION: Calm LABORATORY DATA, IMAGING STUDIES, MICROBIOLOGY: Please see below. ASSESSMENT AND PLAN: 74-year-old male with past medical history of Alzheimer's dementia and multiple myeloma admitted overnight for combative behavior and safety concerns. PROBLEMS: 1. Acute hypoxemic respiratory failure - secondary to aspiration pneumonia and influenza, remains intubated on mechanical ventilation, oxygenation improving, sedated w/ Propofol & Precedex, no longer on pressors, management as per Foreign Languages Department Chair, tentatively plan for extubation today, completed 5 days of Tamiflu, continue meropenem, Micafungin and Doxycycline, MRSA PCR negative, blood cultures negative. 2. DURAN - Resolved with IV hydration 3. Afib/A flutter - rhythm alternating between NSR, Afib & Aflutter, currently in normal sinus rhythm, evaluated by Cardiology, anticoagulation with Lovenox. 4. Alzheimer's dementia: Continue donepezil via NGT. 5. Multiple myeloma: hold Revlimid, Neutropenia has resolved w/ Neupogen which has now been discontinued. DVT prophylaxis: Full dose Lovenox GI prophylaxis: PPI VS, I&O, 24H, Fishbone Vital Signs/I&O Vital Signs Date Time Temp Pulse Resp B/P (MAP) Pulse Ox O2 Delivery O2 Flow Rate FiO2 08/23/19 18:00 73 28 141/67 (91) 94 High Flow Cannula 15.0 08/23/19 16:09 97.4 08/23/19 12:00 40 I&O- Last 24 Hours up to 6 AM 08/23/19 06:00 Intake Total 2832 ml Output Total 3875 ml Balance -1043 ml Laboratory Data 24H LABS Laboratory Tests 2 08/23/19 02:12: Bedside Glucose (Misc Panel) 107 08/23/19 04:40: Neutrophils (%) (Auto) , Nucleated Red Blood Cells % (auto) 0.0, Neutrophils 79H, Lymphocytes (Manual) 10L, Monocytes (Manual) 7H, Eosinophils (Manual) 3, Atypical Lymphocytes 1, Anisocytosis 1+, Macrocytosis , Toxic Granulation 1+, Platelet Estimate DECREASED, Anion Gap 8, Glomerular Filtration Rate > 60.0, Calcium Level 7.6L, Procalcitonin 2.25 08/23/19 05:58: Blood Gas Bicarbonate Standard 25.1, Arterial Blood pH 7.476H, Arterial Blood Partial Pressure CO2 33.1L, Arterial Blood Partial Pressure O2 90.7, Arterial Blood Total CO2 24.9, Arterial Blood HCO3 23.9, Arterial Blood Base Excess 0.7, Arterial Blood Oxygen Saturation 96.6 08/23/19 11:43: Bedside Glucose (Misc Panel) 83 CBC/BMP Laboratory Tests 08/23/19 04:40 Microbiology Microbiology 08/21/19 Fungal Smear, Received Pending 08/21/19 Fungal Culture, Received Pending 08/21/19 Gram Stain - Final, Resulted 08/21/19 Bronchoalveolar Lavage Culture, Resulted Pending 08/21/19 Gram Stain - Final, Resulted 08/21/19 Bronchoalveolar Lavage Culture, Resulted Pending 08/19/19 Blood Culture - Preliminary, Resulted No Growth after 72 hours. All specime... 08/18/19 Gram Stain - Final, Complete 08/18/19 Sputum Culture - Final, Complete 08/17/19 Blood Culture - Final, Complete NO GROWTH AFTER 5 DAYS 08/17/19 Blood Culture - Final, Complete NO GROWTH AFTER 5 DAYS JOSEPHINE JERONIMO MD Aug 23, 2019 18:46
[2019-08-23] MEDS ORDERED: DEXTROSE 50% 50 ML SYRINGE IV PRN (19:00)
[2019-08-23] MEDS ORDERED: GLUCOSE 4 GM CHEW TABLET PO PRN (19:00)
[2019-08-23] MEDS ORDERED: GLUCAGON FOR INJ 1 MG VIAL (J1610) SC PRN (19:00)
[2019-08-23 19:33] LABS: BLOOD UREA NITROGEN 18 MG/DL (7-18); CALCIUM LEVEL 8.1 MG/DL (8.8-10.2); CARBON DIOXIDE LEVEL 28 MEQ/L (21-32); CHLORIDE LEVEL 111 MEQ/L (98-107); CREATININE FOR GFR 0.87 MG/DL (0.70-1.30); GLOMERULAR FILTRATION RATE > 60.0 (>42); GLUCOSE, FASTING 85 MG/DL (70-100); MAGNESIUM LEVEL 1.9 MG/DL (1.8-2.4); POTASSIUM SERUM 3.5 MEQ/L (3.5-5.1); SODIUM LEVEL 143 MEQ/L (136-145)
[2019-08-23] MEDS: D5W/0.45% SODIUM CHLORIDE 1,000 ML IV SCH (20:25)
[2019-08-23] MEDS: DONEPEZIL 5 MG TAB NG SCH (20:26)
[2019-08-24] VITALS (20 sets, daily range): BP systolic 119–168; BP diastolic 57–82
[2019-08-24] MEDS: MEROPENEM INJ 1 GM in IV 1 EA IV SCH ×3 (03:51→18:07)
[2019-08-24 06:12] LABS: HEMATOCRIT 33.4 % (42.0-52.0); HEMOGLOBIN 11.3 g/dl (13.5-17.5); MEAN CORPUSCULAR HEMOGLOBIN 32.8 pg (27.0-33.0); MEAN CORPUSCULAR HGB CONC 33.8 g/dl (32.0-36.5); MEAN CORPUSCULAR VOLUME 97.1 fl (80.0-96.0); PLATELET COUNT, AUTOMATED 164 10^3/uL (150-450); RED BLOOD COUNT 3.44 10^6/uL (4.30-6.10); WHITE BLOOD COUNT 5.4 10^3/uL (4.0-10.0)
[2019-08-24 06:21] LABS: ATYPICAL LYMPH 3 % (0-5); EOSINOPHILS 2 % (0-3); LYMPHOCYTES 15 % (16-44); METAMYELOCYTES 1 % (0-0); MONOCYTES 7 % (0-5); MYELOCYTES 1 % (0-0); NEUTROPHILS 71 % (28-66)
[2019-08-24 06:22] LABS: ANISOCYTOSIS 1+; PLATELET ESTIMATE NORMAL (NORMAL); POIKILOCYTOSIS 1+; POLYCHROMASIA 1+
[2019-08-24 06:36] LABS: ALT/SGPT 269 U/L (12-78); BLOOD UREA NITROGEN 20 MG/DL (7-18); CALCIUM LEVEL 7.7 MG/DL (8.8-10.2); CARBON DIOXIDE LEVEL 27 MEQ/L (21-32); CHLORIDE LEVEL 111 MEQ/L (98-107); CREATININE FOR GFR 0.78 MG/DL (0.70-1.30); GLOMERULAR FILTRATION RATE > 60.0 (>42); GLUCOSE, FASTING 91 MG/DL (70-100); SODIUM LEVEL 143 MEQ/L (136-145); TOTAL PROTEIN 5.1 GM/DL (6.4-8.2)
[2019-08-24] MEDS: IPRATROPIUM 0.5MG/ALBUTEROL 2.5MG INH SOL UD 3ML (DUONEB)(J7620) NEB PRN (07:36)
[2019-08-24 08:06] LABS: ASPERGILLUS GALACTOMANNAN AG 0.03 Index (0.00-0.49); FUNGITELL, SERUM <31 pg/mL (<80); MYCOPLASMA PNEUMONIAE IgG <100 U/mL (0-99); MYCOPLASMA PNEUMONIAE IgM <770 U/mL (0-769)
--- NOTE | 2019-08-24 08:18 | IPN ---
DATE: 08/24/2019 Mr. Dukes got extubated yesterday. He was doing relatively well, but then during the day started requiring more and more oxygen. Currently, his saturation is in the 90s, but on 15 liters of high-flow oxygen. Last recorded blood pressure was 168/74. Heart rate has been in 50s and 60s, sinus rhythm. He is afebrile. His fluid balance yesterday was recorded as negative 4 liters. He got a dose of diuretics. Weight is recorded 74 kg. He is alert, but sedated. He apparently got a dose of Haldol around 4:00 a.m. He opens his eyes, but I could not establish any verbal communication. His jugular venous pulse (JVP) does not sound high. His left lung is completely diminished over lower approximately third to half, above are some crackles, there are very few crackles on the right. Heart exam reveals regular rhythm. I do not appreciate any gallop or rub. Abdomen is soft. There is no edema. Peripheral pulses are of good quality. LABORATORIES: WBC count 5.4, hemoglobin 11, hematocrit 33, platelet count 164,000. Basic metabolic panel is normal. Liver function tests are elevated. Albumin is 2.0. The chest x-ray still reveals infiltrate in the left lower lobe that is rather dense and also some interstitial infiltrates on the right. Cannot rule out small left pleural effusion, but the right seems to be clean. ASSESSMENT/PLAN: Mr. Dukes is a 74-year-old man who has had dementia and multiple myeloma. He presented with initially agitation and then developed influenza and probably aspiration pneumonia. He was briefly intubated and extubated yesterday. He still requires a lot of oxygen. I was asked to see him because of atrial fibrillation and occasional bradycardia. So far, he has been maintaining sinus rhythm since yesterday. He is on low-dose anticoagulation considering his previously low platelet count and age. For the time being, I would continue the same. As far as the management of respiratory status and antibiotics is concerned that stays with his critical care team. GIL
--- NOTE | 2019-08-24 08:29 | REP ---
Portable chest x-ray: Single view. History: Post intubation. Comparison study is from August 23, 2019. Findings: The endotracheal tube has been withdrawn in the interval since the last chest x-ray. NG tube enters the left upper quadrant. Right IJ line remains in place. There is a fairly large infiltrate again noted in the left base unchanged. There are some increased markings in the right base. There is a patchy infiltrate in the right upper lobe on today's chest x-ray which is a new finding. Impression: New infiltrate right upper lobe. Endotracheal tube withdrawn. Electronically Signed by Keo Mcmillan MD 08/24/2019 07:59 P
[2019-08-24] MEDS: DOXYCYCLINE HYCLATE 100 MG in D5W MINI-BAG PLUS 100 ML IV SCH ×2 (09:21→20:17)
[2019-08-24] MEDS: PANTOPRAZOLE 40MG INJ (PROTONIX) (C9113) IV SCH (09:21)
[2019-08-24] MEDS: ENOXAPARIN 100MG/1ML SYRINGE (J1650) SC SCH (09:21)
[2019-08-24 11:04] LABS: ABG BASE EXCESS 0.3 (-2.0-2.0); ABG HCO3 23.1 MEQ/L (22.0-26.0); ABG O2 SATURATION 96.9 % (95.0-99.0); ABG PARTIAL PRESSURE CO2 31.5 mmHg (35.0-45.0); ABG PARTIAL PRESSURE O2 88.4 mmHg (75.0-100.0); ABG STANDARD HCO3 24.7 MEQ/L (22.0-26.0); ABG TOTAL CO2 24.1 MEQ/L (23.0-31.0); ABG pH (ARTERIAL) 7.483 UNITS (7.350-7.450)
[2019-08-24] MEDS: ACETAMINOPHEN 325 MG/10.15 ML UDC GT PRN (11:21)
--- NOTE | 2019-08-24 11:32 | CCN ---
DATE: 08/24/2019 The patient was seen and examined this morning during bedside rounds. Yesterday in the late afternoon, the patient was noted to have sundowning and increased delirium. He was agitated and combative and required doses of Haldol 2 mg IV x2. For the rest of the evening, he has remained calm and did not require additional medications for agitation. The patient did have episodes of desaturation overnight. He initially was on nasal cannula oxygen after his extubation which was increased to high-flow nasal cannula, which he tolerated for most of the night. He does have some oral secretions as well as cough which is productive of sputum. The patient does have a fairly strong cough, but is having difficulty fully expectorating it, as well as appearing to aspirate his oral secretions with audible gurgling sounds and rhonchi. Earlier this morning, the patient with desatting on the high-flow nasal cannula and so was switched to Vapotherm at 30 liters a minute and 100% FiO2. With the Vapotherm, his O2 sats did improve up to 98% and 99%. He is somewhat more drowsy today than he was from yesterday. He is saying brief words, but is not fully following commands or answering questions with complete sentences. The patient has remained afebrile now for more than 24 hours at this point. PHYSICAL EXAMINATION: Temperature 97.8, pulse is 58, respirations 25 to 28, blood pressure 147/64 and O2 sat is 99% on Vapotherm at 100% FiO2. Ins 1 liter and outs 5 liters, net negative for approximately 4 liters. General: The patient is extubated, is not sedated. He is somewhat lethargic, but is opening his eyes to voice and occasionally saying one-word answers. He is not following commands or speaking in complete sentences. HEENT: Normocephalic, atraumatic. Pupils are reactive to light bilaterally. The patient has moist mucous membranes. NG tube is in place. Neck: Supple. Trachea is midline. There is no palpable cervical adenopathy. Cardiovascular: Irregularly irregular. Normal S1, S2. Unable to appreciate any murmurs. Respiratory: The patient has some increased rhonchorous breath sounds bilaterally with audible gurgling in his posterior oropharynx with mucus secretions there. Abdomen is soft, nontender, nondistended. There are positive bowel signs. Extremities: There is no significant lower extremity edema noted bilaterally. LABORATORY DATA: WBC is 5.4, hemoglobin 11.3, platelets 164. Chemistry: Sodium is 143, potassium 4.0, chloride is 111, bicarb 27, BUN 20, creatinine 0.78, glucose is 91, calcium 7.7, AST and ALT trended up to 204 and 269, alkaline phosphatase is 120, direct bilirubin is 1.0, procalcitonin trending down to 2.25. IMAGING: Chest x-ray shows NG tube in place in the left upper quadrant. There is a right IJ triple lumen in place. There is opacity at the left base which is unchanged, but there are some increased markings in the right base and a patchy opacity in right upper lobe which is new compared to previous x-ray. ASSESSMENT AND PLAN: Mr. Dukes is a 74-year-old male with a history of Alzheimer dementia and multiple myeloma who presented initially with increased agitation and combativeness. During the hospital stay, the patient was noted have difficulty with swallowing with concern for possible aspiration. He was then found to be more neutropenic and developed a fever and was influenza A positive as well as noted to have bilateral lower lobe infiltrates, left greater than right, concerning for aspiration pneumonia. The patient had acute hypoxemic respiratory failure in the setting of his aspiration pneumonia with difficulty managing secretions and mucus plugging and he required intubation and mechanical ventilation on 08/18/2019. Neurologic: History of Alzheimer dementia. He has issues in the past with agitation and ing. - The patient was extubated yesterday and has been off of sedation, but did require doses of p.r.n. Haldol yesterday evening when he was . Overnight, has not required any further doses of Haldol. - Continue with donepezil via NG tube. - Continue with melatonin q.h.s. p.r.n. for insomnia. Cardiovascular: The patient did have episodes of hypotension while intubated, some of which were secondary to sedation, as well as with his sepsis and possible septic shock. His blood pressures have improved and he has been off of vasopressors for more than 24 hours. He does have a right IJ triple lumen in place still for venous access. - The patient was noted to have evidence of some pulmonary vascular congestion as well as small left pleural effusion. He was given Lasix IV for diuresis and has been significantly net negative. Will hold off on further Lasix at this point. - The patient was noted to have new paroxysmal atrial fibrillation during this admission. He has been mostly bradycardic, however, does not require any medications for rate control. He was started on anticoagulation for his atrial fibrillation with Lovenox. Cardiology has been following. Infectious Disease (ID)/Pulmonary: The patient with acute hypoxemic respiratory failure in the setting of influenza A as well as with aspiration pneumonia. He required intubation and mechanical ventilation on the evening of 08/18/2019 and patient was extubated yesterday, 08/23/2019. - The patient does have some cough with secretions, but he also has copious oral secretions and has been having issues managing his oral secretions with aspiration overnight requiring increasing oxygen supplementation. He is now on Vapotherm to maintain his O2 sats. - Will continue to wean down his FiO2 on the Vapotherm as tolerated to maintain an O2 sat above 90% - The patient is a full code, but he does have a living will in place and healthcare proxy. Will discuss with the patient's family today in a family meeting about his goals of care given his ongoing difficulty managing his secretions and aspiration. - The patient is on Tamiflu for his influenza A which he has completed a course of. He was also on broad-spectrum antibiotic coverage for his aspiration pneumonia. His procalcitonin had been trending up and so his antibiotics were brought in from [facility] to meropenem. He was also started on doxycycline for atypical coverage as well as micafungin for possible fungal coverage given his neutropenia. His repeat procalcitonin has trended down and his fever curve has improved and he has been afebrile now. - The patient does have some elevated AST and ALT and so will discontinue his micafungin to de-escalate his antibiotics and continue with doxycycline and meropenem for now. - The patient's fungal culture has been negative and his uemd-[id number] and galactomannan is negative and his urine Legionella and Mycoplasma is negative. His CMB is still pending. Will likely be able to de-escalate antibiotics in the next days and discontinue doxycycline and continue with meropenem and de-escalate further from there. - Continue with droplet isolation precautions. - Continue with aspiration precautions with head of bed elevation. Renal: The patient initially had acute kidney injury (DURAN) which was prerenal and has resolved with IV fluid hydration. He was also noted to be significantly net positive and there was concern for some pulmonary vascular congestion on his imaging and so he was given IV doses of Lasix with very good diuresis. - Will hold off on further doses of Lasix and will monitor his renal function and electrolytes and replete as needed. - Will monitor ins and outs via Hilton catheter. GI: The patient has a NG tube in place and was tolerating tube feeds. His NG tube were held for extubation as well as for yesterday given concern for ongoing aspiration. Will hold NG tube feeds for now. - Continue with proton pump inhibitor (PPI) for GI prophylaxis. Heme: History of multiple myeloma, was previously on Revlimid as an outpatient, which is on hold. He did have neutropenia on this admission likely in the setting of sepsis. He was also treated with Neupogen and has had recovery of his ANC and has not required any further doses of Neupogen. - The patient is on Lovenox for anticoagulation for the atrial fibrillation. Full code. Will plan for a family discussion today to address goals of care. Total critical care time spent, not including procedures, approximately 40 minutes.
--- NOTE | 2019-08-24 12:32 | REPVR ---
PROCEDURE INFORMATION: Exam: CT Head Without Contrast Exam date and time: 08/24/2019 12:14 PM Age: 74 years old Clinical indication: Altered mental status/memory loss; Confusion or disorientation TECHNIQUE: Imaging protocol: Computed tomography of the head without contrast. Radiation optimization: All CT scans at this facility use at least one of these dose optimization techniques: automated exposure control; mA and/or kV adjustment per patient size (includes targeted exams where dose is matched to clinical indication); or iterative reconstruction. COMPARISON: No relevant prior studies available. FINDINGS: Brain: There is mild ill-defined patchy hypodensity within the bilateral cerebral periventricular white matter, consistent with chronic microvascular ischemic changes. There is moderate cerebral atrophy present, consistent with this patient's age. Ventricles: The ventricular system demonstrates moderate diffuse compensatory enlargement. Bones/joints: Unremarkable. No acute fracture. Sinuses: Visualized sinuses are unremarkable. No fluid levels. Mastoid air cells: Visualized mastoid air cells are well aerated. Soft tissues: Unremarkable. IMPRESSION: 1. No acute infarction, masses or hemorrhage is seen. No acute intracranial abnormality is identified. 2. Moderate age-related cerebral atrophy, predominantly involving the frontal and temporal lobes and mild chronic microvascular white matter ischemic changes. 3. [facility] Stroke Program Early CT Score (ASPECTS) = 10 Electronically signed by: Gui Grover On 08/24/2019 12:32:17 PM
[2019-08-24] MEDS: D5W/0.45% SODIUM CHLORIDE 1,000 ML IV SCH (13:39)
--- NOTE | 2019-08-24 18:23 | IPNPDOC ---
Date Seen The patient was seen on 08/24/19. Progress Note SUBJECTIVE: 74-year-old male with past medical history of Alzheimer's dementia and multiple myeloma (on Revlimid) was initially admitted for combative behavior, requiring sedation. Patient developed influenza and aspiration pneumonia during his hospitalization, acute hypoxemic respiratory failure requiring intubation and mechanical ventilation. Patient was also hypotensive for a brief period of time, requiring low-dose vasopressors. He underwent bronchoscopy yesterday. 08/22/19 No acute events overnight, remains on mechanical ventilation, sedated with propofol, moving all extremities, unable to follow commands at this time, having increased secretions. 08/23/19 Patient seen in the morning, remains sedated on mechanical ventilation, propofol up to 30 mcg/kg/min, secretions have decreased in volume, continues to require less support from the ventilator on a daily basis, currently down to 40% FiO2 and PEEP of 5. Not moving or following commands at this time. 08/24/19 Patient extubated yesterday, did well post extubation, altered/agitated requiring Haldol overnight, O2 requirements increased overnight, currently on Vapotherm @ 50% FiO2. Patient awake, non-verbal, follows simple commands, appears somnolent w/ tachypnea. PHYSICAL EXAMINATION: VITAL SIGNS: Please see below. GENERAL: No distress HEENT: Normocephalic, pooling oral secretions CARDIOVASCULAR EXAMINATION: S1, S2, regular, no murmurs RESPIRATORY EXAMINATION: scattered rhonchi, no wheezing ABDOMINAL EXAMINATION: Soft, nontender, nondistended, positive bowel sounds EXTREMITIES: No edema SKIN: No rash NEUROLOGICAL EXAMINATION: unable to assess due to mentation PSYCHIATRIC EXAMINATION: Calm LABORATORY DATA, IMAGING STUDIES, MICROBIOLOGY: Please see below. ASSESSMENT AND PLAN: 74-year-old male with past medical history of Alzheimer's dementia and multiple myeloma admitted overnight for combative behavior and safety concerns. PROBLEMS: 1. Acute hypoxemic respiratory failure - secondary to aspiration pneumonia and influenza, extubated yesterday, FiO2 requirements increased overnight, likely due to microaspiration of oral secretions, CXR showing new R sided opacity (likely from persistent aspiration), CT head negative for acute pathology, continue meropenem and doxycycline, Procal trending down, Micafungin di scontinued due to elevated LFTs, MRSA PCR negative, cultures negative. Had a long discussion with family regarding future goals of care if patient continues to aspirate w/ declining respiratory function eventually requiring reintubation; other options were also discussed, all questions answered, family would like to think about and discuss all the available options before making a decision. They understand that patient will remain Full code until a decision is made. 2. DURAN - Resolved with IV hydration 3. Afib/A flutter - rhythm alternating between NSR, Afib & Aflutter, currently in normal sinus rhythm, evaluated by Cardiology, anticoagulation with Lovenox. 4. Alzheimer's dementia: Continue donepezil via NGT. 5. Multiple myeloma: hold Revlimid, Neutropenia has resolved w/ Neupogen which has now been discontinued. DVT prophylaxis: Full dose Lovenox GI prophylaxis: PPI VS, I&O, 24H, Fishbone Vital Signs/I&O Vital Signs Date Time Temp Pulse Resp B/P (MAP) Pulse Ox O2 Delivery O2 Flow Rate FiO2 08/24/19 17:21 22 97 HVNI-Vapotherm 10.0 50 08/24/19 17:00 57 123/57 (79) 08/24/19 16:11 97.7 I&O- Last 24 Hours up to 6 AM 08/24/19 05:59 Intake Total 644 ml Output Total 5140 ml Balance -4496 ml Laboratory Data 24H LABS Laboratory Tests 2 08/23/19 18:37: Anion Gap 4L, Glomerular Filtration Rate > 60.0, Calcium Level 8.1L, Magnesium Level 1.9 08/23/19 18:43: Bedside Glucose (Misc Panel) 39*L 08/23/19 20:32: Bedside Glucose (Misc Panel) 84 08/24/19 02:20: Bedside Glucose (Misc Panel) 92 08/24/19 05:57: Neutrophils (%) (Auto) , Nucleated Red Blood Cells % (auto) 0.0, Neutrophils 71H, Lymphocytes (Manual) 15L, Monocytes (Manual) 7H, Eosinophils (Manual) 2, Metamyelocytes 1H, Myelocytes 1H, Atypical Lymphocytes 3, Polychromasia 1+, Poikilocytosis 1+, Anisocytosis 1+, Platelet Estimate NORMAL, Anion Gap 5L, Glomerular Filtration Rate > 60.0, Calcium Level 7.7L, Total Bilirubin 1.0, Aspartate Amino Transf (AST/SGOT) 204H, Alanine Aminotransferase (ALT/SGPT) 269H, Alkaline Phosphatase 120H, Total Protein 5.1L, Albumin 2.0L, Album in/Globulin Ratio 0.65L 08/24/19 10:57: Blood Gas Bicarbonate Standard 24.7, Arterial Blood pH 7.483H, Arterial Blood Partial Pressure CO2 31.5L, Arterial Blood Partial Pressure O2 88.4, Arterial Blood Total CO2 24.1, Arterial Blood HCO3 23.1, Arterial Blood Base Excess 0.3, Arterial Blood Oxygen Saturation 96.9 08/24/19 11:28: Bedside Glucose (Misc Panel) 110 CBC/BMP Laboratory Tests 08/23/19 18:37 08/24/19 05:57 Microbiology Microbiology 08/24/19 Blood Culture, Received Pending 08/24/19 Blood Culture, Received Pending 08/21/19 Fungal Smear, Received Pending 08/21/19 Fungal Culture, Received Pending 08/21/19 Gram Stain - Final, Complete 08/21/19 Bronchoalveolar Lavage Culture - Final, Complete 08/21/19 Gram Stain - Final, Complete 08/21/19 Bronchoalveolar Lavage Culture - Final, Complete 08/19/19 Blood Culture - Preliminary, Resulted No Growth after 72 hours. All specime... 08/18/19 Gram Stain - Final, Complete 08/18/19 Sputum Culture - Final, Complete 08/17/19 Blood Culture - Final, Complete NO GROWTH AFTER 5 DAYS 08/17/19 Blood Culture - Final, Complete NO GROWTH AFTER 5 DAYS JOSEPHINE JERONIMO MD Aug 24, 2019 18:23
[2019-08-24] MEDS: DONEPEZIL 5 MG TAB NG SCH (20:17)
[2019-08-24] MEDS ORDERED: RAMELTEON 8 MG TAB (ROZEREM) NG SCH (21:00)
--- NOTE | 2019-08-24 21:12 | IPNPDOC ---
Text Note Date of Service The patient was seen on 08/24/19. NOTE I spoke with the patient's son, daughter, son's , and grandson who were all in agreement that they wanted the patient to be DNR/DNI. I explained the the family what this meant and they verbalized understanding. They spoke with both Dr. Eugene and Dr. Hudson during the day about what the prognosis for the patient and after deliberation between family members, they came to the decision they did not want resuscitation or re-intubation if the patient worsened. They want to continue with antibiotic treatment and other care for the patient's acute illness at this time. 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 Patient's family spoke with patient overnight nurse Leeanne Olsen and expressed the same wishes to her. VS,Fishbone, I+O VS, Fishbone, I+O Laboratory Tests 08/24/19 05:57 Vital Signs Date Time Temp Pulse Resp B/P (MAP) Pulse Ox O2 Delivery O2 Flow Rate FiO2 08/24/19 19:55 98 HVNI-Vapotherm 10.0 50 08/24/19 18:01 59 26 136/63 (87) 08/24/19 16:11 97.7 I&O- Last 24 Hours up to 6 AM 08/24/19 06:00 Intake Total 505 ml Output Total 5340 ml Balance -4835 ml CIRO RENE DO Aug 24, 2019 21:12
[2019-08-25] VITALS (17 sets, daily range): BP systolic 123–161; BP diastolic 57–71
[2019-08-25 00:07] LABS: CMV QUANT DNA PCR (PLASMA) Positive < 200 IU/mL (Negative)
[2019-08-25] MEDS: MEROPENEM INJ 1 GM in IV 1 EA IV SCH ×3 (03:14→18:12)
[2019-08-25] MEDS: ACETAMINOPHEN 325 MG/10.15 ML UDC GT PRN (05:24)
[2019-08-25 05:30] LABS: HEMATOCRIT 33.6 % (42.0-52.0); HEMOGLOBIN 11.4 g/dl (13.5-17.5); MEAN CORPUSCULAR HEMOGLOBIN 32.8 pg (27.0-33.0); MEAN CORPUSCULAR HGB CONC 33.9 g/dl (32.0-36.5); MEAN CORPUSCULAR VOLUME 96.6 fl (80.0-96.0); PLATELET COUNT, AUTOMATED 196 10^3/uL (150-450); RED BLOOD COUNT 3.48 10^6/uL (4.30-6.10); WHITE BLOOD COUNT 6.6 10^3/uL (4.0-10.0)
[2019-08-25 06:01] LABS: ALBUMIN 1.9 GM/DL (3.2-5.2); ALT/SGPT 201 U/L (12-78); BILIRUBIN,TOTAL 1.3 MG/DL (0.2-1.0); BLOOD UREA NITROGEN 19 MG/DL (7-18); CALCIUM LEVEL 7.9 MG/DL (8.8-10.2); CARBON DIOXIDE LEVEL 26 MEQ/L (21-32); CHLORIDE LEVEL 113 MEQ/L (98-107); GLOMERULAR FILTRATION RATE > 60.0 (>42); GLUCOSE, FASTING 109 MG/DL (70-100); POTASSIUM SERUM 3.8 MEQ/L (3.5-5.1); SODIUM LEVEL 143 MEQ/L (136-145)
[2019-08-25 06:05] LABS: LYMPHOCYTES 5 % (16-44); MONOCYTES 6 % (0-5); NEUTROPHILS 89 % (28-66); TOXIC GRANULATION 1+
[2019-08-25 06:06] LABS: ANISOCYTOSIS 1+; PLATELET ESTIMATE NORMAL (NORMAL)
[2019-08-25] MEDS: D5W/0.45% SODIUM CHLORIDE 1,000 ML IV SCH (08:09)
[2019-08-25] MEDS: DOXYCYCLINE HYCLATE 100 MG in D5W MINI-BAG PLUS 100 ML IV SCH ×2 (08:09→20:58)
[2019-08-25] MEDS: PANTOPRAZOLE 40MG INJ (PROTONIX) (C9113) IV SCH (08:09)
--- NOTE | 2019-08-25 08:58 | REP ---
Portable chest x-ray: Single view. History: Post intubation. Comparison study: August 24, 2019. Findings: No endotracheal tube is seen. An NG tube enters left upper quadrant. Oxygen delivery tubing and monitoring electrodes are noted. There is a right internal jugular central venous catheter again noted in place with its tip in the expected location of the superior vena cava. There are parenchymal infiltrates in the left lower lobe, right upper lobe, and right perihilar distribution. Air bronchograms are visible bilaterally. Interstitial markings are diffusely somewhat prominent. Impression: Bilateral infiltrates. Electronically Signed by Keo Mcmillan MD 08/25/2019 08:50 A
[2019-08-25] MEDS: SODIUM CHLORIDE HYPERTONIC 3% 15ML NEB SOL INH SCH (20:38)
[2019-08-25] MEDS: DONEPEZIL 5 MG TAB NG SCH (20:59)
[2019-08-25] MEDS: RAMELTEON 8 MG TAB (ROZEREM) NG PRN (20:59)
--- NOTE | 2019-08-25 21:20 | IPNPDOC ---
Date Seen The patient was seen on 08/25/19. Progress Note SUBJECTIVE: 74-year-old male with past medical history of Alzheimer's dementia and multiple myeloma (on Revlimid) was initially admitted for combative behavior, requiring sedation. Patient developed influenza and aspiration pneumonia during his hospitalization, acute hypoxemic respiratory failure requiring intubation and mechanical ventilation. Patient was also hypotensive for a brief period of time, requiring low-dose vasopressors. He underwent bronchoscopy yesterday. 08/22/19 No acute events overnight, remains on mechanical ventilation, sedated with propofol, moving all extremities, unable to follow commands at this time, having increased secretions. 08/23/19 Patient seen in the morning, remains sedated on mechanical ventilation, propofol up to 30 mcg/kg/min, secretions have decreased in volume, continues to require less support from the ventilator on a daily basis, currently down to 40% FiO2 and PEEP of 5. Not moving or following commands at this time. 08/24/19 Patient extubated yesterday, did well post extubation, altered/agitated requiring Haldol overnight, O2 requirements increased overnight, currently on Vapotherm @ 50% FiO2. Patient awake, non-verbal, follows simple commands, appears somnolent w/ tachypnea. 08/25/19 More alert in the morning, following commands, improvement in ability to clear secretions, O2 requirements down to 35% FiO2 at this time, discussed w/ & son, will continue current medical management for now and monitor patient for the next 24 hours to see if there is improvement or aspiration continues/recurs. PHYSICAL EXAMINATION: VITAL SIGNS: Please see below. GENERAL: No distress HEENT: Normocephalic, moist mucus membranes CARDIOVASCULAR EXAMINATION: S1, S2, regular, no murmurs RESPIRATORY EXAMINATION: scattered rhonchi, no wheezing ABDOMINAL EXAMINATION: Soft, nontender, nondistended, positive bowel sounds EXTREMITIES: No edema SKIN: No rash NEUROLOGICAL EXAMINATION: unable to assess due to lack of ability PSYCHIATRIC EXAMINATION: Calm LABORATORY DATA, IMAGING STUDIES, MICROBIOLOGY: Please see below. ASSESSMENT AND PLAN: 74-year-old male with past medical history of Alzheimer's dementia and multiple myeloma admitted overnight for combative behavior and safety concerns. PROBLEMS: 1. Acute hypoxemic respiratory failure - secondary to aspiration pneumonia and influenza, extubated, intermittent microaspiration of oral secretions, continue meropenem and doxycycline, continue supplemental oxygen to maintain O2 sats between 88-92%, chest PT, hypertonic saline nebs. Family would like to continue medical management for now to see if there is improvement in dysphagia and patient is able to manage his oral secretions. If not, plan will be to make patient comfort care. DNR/DNI at this time. 2. DURAN - Resolved with IV hydration 3. Afib/A flutter - rhythm alternating between NSR, Afib & Aflutter, currently in normal sinus rhythm, evaluated by Cardiology, having blood tinged oral secretions, hold Lovenox. 4. Alzheimer's dementia: Continue donepezil via NGT. 5. Multiple myeloma: hold Revlimid, Neutropenia has resolved w/ Neupogen which has now been discontinued. DVT prophylaxis: TEDs GI prophylaxis: PPI VS, I&O, 24H, Fishbone Vital Signs/I&O Vital Signs Date Time Temp Pulse Resp B/P (MAP) Pulse Ox O2 Delivery O2 Flow Rate FiO2 08/25/19 18:00 66 28 135/63 (87) 94 HVNI-Vapotherm 25.0 50 08/25/19 16:00 99.3 I&O- Last 24 Hours up to 6 AM 08/25/19 05:59 Intake Total 1440 ml Output Total 1910 ml Balance -470 ml Laboratory Data 24H LABS Laboratory Tests 2 08/24/19 23:50: Bedside Glucose (Misc Panel) > 600*H 08/24/19 23:52: Bedside Glucose (Misc Panel) 100 08/25/19 05:14: Neutrophils (%) (Auto) , Nucleated Red Blood Cells % (auto) 0.0, Neutrophils 89H, Lymphocytes (Manual) 5L, Monocytes (Manual) 6H, Red Blood Cell Morphology , Anisocytosis 1+, Toxic Granulation 1+, Platelet Estimate NORMAL, Anion Gap 4L, Glomerular Filtration Rate > 60.0, Calcium Level 7.9L, Total Bilirubin 1.3H, Aspartate Amino Transf (AST/SGOT) 102H, Alanine Aminotransferase (ALT/SGPT) 201H, Alkaline Phosphatase 124H, Total Protein 6.0L, Albumin 1.9L, Albumin/Globulin Ratio 0.46L 08/25/19 12:25: Bedside Glucose (Misc Panel) 104 08/25/19 18:15: Bedside Glucose (Misc Panel) 98 CBC/BMP Laboratory Tests 08/25/19 05:14 Microbiology Microbiology 08/24/19 Blood Culture - Preliminary, Resulted No growth after 24 hours . All specim... 08/24/19 Blood Culture - Preliminary, Resulted No growth after 24 hours . All specim... 08/21/19 Fungal Smear, Received Pending 08/21/19 Fungal Culture, Received Pending 08/21/19 Gram Stain - Final, Complete 08/21/19 Bronchoalveolar Lavage Culture - Final, Complete 08/21/19 Gram Stain - Final, Complete 08/21/19 Bronchoalveolar Lavage Culture - Final, Complete 08/19/19 Blood Culture - Final, Complete NO GROWTH AFTER 5 DAYS 08/18/19 Gram Stain - Final, Complete 08/18/19 Sputum Culture - Final, Complete 08/17/19 Blood Culture - Final, Complete NO GROWTH AFTER 5 DAYS 08/17/19 Blood Culture - Final, Complete NO GROWTH AFTER 5 DAYS JOSEPHINE JERONIMO MD Aug 25, 2019 21:20
[2019-08-26] VITALS (8 sets, daily range): BP systolic 123–153; BP diastolic 59–75
[2019-08-26] MEDS: SODIUM CHLORIDE HYPERTONIC 3% 15ML NEB SOL INH SCH ×7 (01:09→23:40)
[2019-08-26] MEDS: D5W/0.45% SODIUM CHLORIDE 1,000 ML IV SCH ×2 (02:16→16:41)
[2019-08-26] MEDS: MEROPENEM INJ 1 GM in IV 1 EA IV SCH ×3 (04:24→18:19)
[2019-08-26 06:34] LABS: HEMATOCRIT 32.3 % (42.0-52.0); HEMOGLOBIN 10.9 g/dl (13.5-17.5); MEAN CORPUSCULAR HEMOGLOBIN 32.9 pg (27.0-33.0); MEAN CORPUSCULAR HGB CONC 33.7 g/dl (32.0-36.5); MEAN CORPUSCULAR VOLUME 97.6 fl (80.0-96.0); PLATELET COUNT, AUTOMATED 228 10^3/uL (150-450); RED BLOOD COUNT 3.31 10^6/uL (4.30-6.10); WHITE BLOOD COUNT 4.2 10^3/uL (4.0-10.0)
[2019-08-26 06:58] LABS: ALBUMIN 1.9 GM/DL (3.2-5.2); ALT/SGPT 181 U/L (12-78); BILIRUBIN,TOTAL 1.2 MG/DL (0.2-1.0); BLOOD UREA NITROGEN 21 MG/DL (7-18); CALCIUM LEVEL 7.4 MG/DL (8.8-10.2); CARBON DIOXIDE LEVEL 26 MEQ/L (21-32); CHLORIDE LEVEL 112 MEQ/L (98-107); CREATININE FOR GFR 0.62 MG/DL (0.70-1.30); GLOMERULAR FILTRATION RATE > 60.0 (>42); GLUCOSE, FASTING 100 MG/DL (70-100); POTASSIUM SERUM 3.5 MEQ/L (3.5-5.1); SODIUM LEVEL 144 MEQ/L (136-145); TOTAL PROTEIN 5.1 GM/DL (6.4-8.2)
[2019-08-26 07:30] LABS: ATYPICAL LYMPH 2 % (0-5); LYMPHOCYTES 24 % (16-44); MONOCYTES 2 % (0-5); NEUTROPHILS 71 % (28-66)
[2019-08-26] MEDS ORDERED: POTASSIUM CHLORIDE 10% LIQ 20 MEQ/15 ML UDC NG ONE (07:30)
[2019-08-26 07:31] LABS: ANISOCYTOSIS 1+; PLATELET ESTIMATE NORMAL (NORMAL); TOXIC GRANULATION 1+
[2019-08-26 07:32] LABS: DOHLE BODIES 1+
--- NOTE | 2019-08-26 08:00 | REP ---
Portable chest x-ray: Single view. History: Post intubation. Comparison radiograph August 25, 2019. Findings: EKG monitoring electrodes and oxygen delivery tubing are seen. An NG tube enters left upper quadrant. No endotracheal tube is seen. There is a right IJ line in place with its tip in the expected location of the SVC. Left lower lobe, left perihilar, and right upper lobe infiltrates are again seen essentially unchanged from yesterday's radiograph. Electronically Signed by Keo Mcmillan MD 08/26/2019 07:51 A
[2019-08-26] MEDS: IPRATROPIUM 0.5MG/ALBUTEROL 2.5MG INH SOL UD 3ML (DUONEB)(J7620) NEB PRN ×3 (08:03→15:53)
[2019-08-26] MEDS: PANTOPRAZOLE 40MG INJ (PROTONIX) (C9113) IV SCH (08:13)
[2019-08-26] MEDS: DOXYCYCLINE HYCLATE 100 MG in D5W MINI-BAG PLUS 100 ML IV SCH ×2 (08:13→20:42)
--- NOTE | 2019-08-26 11:49 | IPNPDOC ---
Date Seen The patient was seen on 08/26/19. Progress Note SUBJECTIVE: 74-year-old male with past medical history of Alzheimer's dementia and multiple myeloma (on Revlimid) was initially admitted for combative behavior, requiring sedation. Patient developed influenza and aspiration pneumonia during his hospitalization, acute hypoxemic respiratory failure requiring intubation and mechanical ventilation. Patient was also hypotensive for a brief period of time, requiring low-dose vasopressors. He underwent bronchoscopy yesterday. 08/22/19 No acute events overnight, remains on mechanical ventilation, sedated with propofol, moving all extremities, unable to follow commands at this time, having increased secretions. 08/23/19 Patient seen in the morning, remains sedated on mechanical ventilation, propofol up to 30 mcg/kg/min, secretions have decreased in volume, continues to require less support from the ventilator on a daily basis, currently down to 40% FiO2 and PEEP of 5. Not moving or following commands at this time. 08/24/19 Patient extubated yesterday, did well post extubation, altered/agitated requiring Haldol overnight, O2 requirements increased overnight, currently on Vapotherm @ 50% FiO2. Patient awake, non-verbal, follows simple commands, appears somnolent w/ tachypnea. 08/25/19 More alert in the morning, following commands, improvement in ability to clear secretions, O2 requirements down to 35% FiO2 at this time, discussed w/ & son, will continue current medical management for now and monitor patient for the next 24 hours to see if there is improvement or aspiration continues/recurs. 08/26/19 Seen in the morning, more alert and responsive today, sitting in chair, decreased oral secretions overnight, did not require deep suctioning, remains on Vapotherm at 50% FiO2, no complaints at this time. PHYSICAL EXAMINATION: VITAL SIGNS: Please see below. GENERAL: No distress HEENT: Normocephalic, moist mucus membranes CARDIOVASCULAR EXAMINATION: S1, S2, regular, no murmurs RESPIRATORY EXAMINATION: scattered rhonchi, no wheezing ABDOMINAL EXAMINATION: Soft, nontender, nondistended, positive bowel sounds EXTREMITIES: No edema SKIN: No rash NEUROLOGICAL EXAMINATION: unable to assess due to lack of ability PSYCHIATRIC EXAMINATION: Calm LABORATORY DATA, IMAGING STUDIES, MICROBIOLOGY: Please see below. ASSESSMENT AND PLAN: 74-year-old male with past medical history of Alzheimer's dementia and multiple myeloma admitted overnight for combative behavior and safety concerns. PROBLEMS: 1. Acute hypoxemic respiratory failure - secondary to aspiration pneumonia and influenza, extubated, intermittent microaspiration of oral secretions, continue meropenem and doxycycline, continue supplemental oxygen to maintain O2 sats b etween 88-92%, chest PT, hypertonic saline nebs. Patient with improved mentation and ability to manage secretions, will monitor for progression. 2. DURAN - Resolved with IV hydration 3. Afib/A flutter - rhythm alternating between NSR, Afib & Aflutter, currently in normal sinus rhythm, evaluated by Cardiology, Lovenox discontinued. 4. Alzheimer's dementia: Continue donepezil via NGT. 5. Multiple myeloma: hold Revlimid, Neutropenia has resolved w/ Neupogen which has now been discontinued. DVT prophylaxis: Lovenox GI prophylaxis: PPI VS, I&O, 24H, Fishbone Vital Signs/I&O Vital Signs Date Time Temp Pulse Resp B/P (MAP) Pulse Ox O2 Delivery O2 Flow Rate FiO2 08/26/19 10:00 64 22 90 HVNI-Vapotherm 20.0 50 08/26/19 09:00 138/67 (90) 08/26/19 08:00 99.4 I&O- Last 24 Hours up to 6 AM 08/26/19 06:00 Intake Total 1810 ml Output Total 870 ml Balance 940 ml Laboratory Data 24H LABS Laboratory Tests 2 08/25/19 12:25: Bedside Glucose (Misc Panel) 104 08/25/19 18:15: Bedside Glucose (Misc Panel) 98 08/26/19 00:19: Bedside Glucose (Misc Panel) 110 08/26/19 06:19: Neutrophils (%) (Auto) , Nucleated Red Blood Cells % (auto) 0.0, Neutrophils 71H, Band Neutrophils 1, Lymphocytes (Manual) 24, Monocytes (Manual) 2, Atypical Lymphocytes 2, Anisocytosis 1+, Macrocytosis 1+, Toxic Granulation 1+, Dohle Bodies 1+, Platelet Estimate NORMAL, Anion Gap 6L, Glomerular Filtration Rate > 60.0, Calcium Level 7.4L, Total Bilirubin 1.2H, Aspartate Amino Transf (AST/SGOT) 97H, Alanine Aminotransferase (ALT/SGPT) 181H, Alkaline Phosphatase 124H, Total Protein 5.1L, Albumin 1.9L, Albumin/Globulin Ratio 0.59L CBC/BMP Laboratory Tests 08/26/19 06:19 Microbiology Microbiology 08/24/19 Blood Culture - Preliminary, Resulted No growth after 24 hours . All specim... 08/24/19 Blood Culture - Preliminary, Resulted No growth after 24 hours . All specim... 08/21/19 Fungal Smear, Received Pending 08/21/19 Fungal Culture, Received Pending 08/21/19 Gram Stain - Final, Complete 08/21/19 Bronchoalveolar Lavage Culture - Final, Complete 08/21/19 Gram Stain - Final, Complete 08/21/19 Bronchoalveolar Lavage Culture - Final, Complete 08/19/19 Blood Culture - Final, Complete NO GROWTH AFTER 5 DAYS 08/18/19 Gram Stain - Final, Complete 08/18/19 Sputum Culture - Final, Complete 08/17/19 Blood Culture - Final, Complete NO GROWTH AFTER 5 DAYS 08/17/19 Blood Culture - Final, Complete NO GROWTH AFTER 5 DAYS JOSEPHINE JERONIMO MD Aug 26, 2019 11:49
[2019-08-26] MEDS: ENOXAPARIN 40 MG/0.4 ML SYRINGE (J1650) SC SCH (12:23)
[2019-08-26] MEDS: LOPERAMIDE 2 MG CAPLET NG PRN (20:41)
[2019-08-26] MEDS: DONEPEZIL 5 MG TAB NG SCH (20:41)
[2019-08-26] MEDS: RAMELTEON 8 MG TAB (ROZEREM) NG PRN (20:42)
[2019-08-27] VITALS (7 sets, daily range): BP systolic 118–159; BP diastolic 59–71
[2019-08-27] MEDS: SODIUM CHLORIDE HYPERTONIC 3% 15ML NEB SOL INH SCH ×5 (03:31→19:34)
[2019-08-27] MEDS: MEROPENEM INJ 1 GM in IV 1 EA IV SCH ×3 (03:41→18:12)
[2019-08-27 05:42] LABS: BASO % 0.2 % (0.0-1.0); EOS # 0.1 10^3/uL (0.0-0.5); EOS % 1.4 % (0.0-3.0); HEMATOCRIT 32.4 % (42.0-52.0); HEMOGLOBIN 11.1 g/dl (13.5-17.5); LYMPH # 0.5 10^3/uL (1.5-5.0); LYMPH % 10.1 % (24.0-44.0); MEAN CORPUSCULAR HEMOGLOBIN 32.9 pg (27.0-33.0); MEAN CORPUSCULAR HGB CONC 34.3 g/dl (32.0-36.5); MEAN CORPUSCULAR VOLUME 96.1 fl (80.0-96.0); MONO # 0.4 10^3/uL (0.0-0.8); MONO % 8.1 % (0.0-5.0); NEUTROPHILS % 79.2 % (36.0-66.0); PLATELET COUNT, AUTOMATED 260 10^3/uL (150-450); RED BLOOD COUNT 3.37 10^6/uL (4.30-6.10); WHITE BLOOD COUNT 5.1 10^3/uL (4.0-10.0)
[2019-08-27 06:09] LABS: ALBUMIN 1.9 GM/DL (3.2-5.2); ALT/SGPT 299 U/L (12-78); BILIRUBIN,TOTAL 1.1 MG/DL (0.2-1.0); BLOOD UREA NITROGEN 17 MG/DL (7-18); CALCIUM LEVEL 7.6 MG/DL (8.8-10.2); CARBON DIOXIDE LEVEL 24 MEQ/L (21-32); CHLORIDE LEVEL 112 MEQ/L (98-107); CREATININE FOR GFR 0.64 MG/DL (0.70-1.30); GLOMERULAR FILTRATION RATE > 60.0 (>42); GLUCOSE, FASTING 110 MG/DL (70-100); POTASSIUM SERUM 3.2 MEQ/L (3.5-5.1); SODIUM LEVEL 143 MEQ/L (136-145); TOTAL PROTEIN 5.2 GM/DL (6.4-8.2)
[2019-08-27] MEDS: IPRATROPIUM 0.5MG/ALBUTEROL 2.5MG INH SOL UD 3ML (DUONEB)(J7620) NEB PRN ×4 (07:46→19:35)
[2019-08-27] MEDS ORDERED: POTASSIUM CHLORIDE 10% LIQ 20 MEQ/15 ML UDC PO ONE (08:00)
[2019-08-27] MEDS: D5W/0.45% SODIUM CHLORIDE 1,000 ML IV SCH ×2 (08:07→23:57)
[2019-08-27] MEDS: PANTOPRAZOLE 40MG INJ (PROTONIX) (C9113) IV SCH (08:08)
[2019-08-27] MEDS: DOXYCYCLINE HYCLATE 100 MG in D5W MINI-BAG PLUS 100 ML IV SCH ×2 (08:08→19:58)
[2019-08-27] MEDS: KCL 20MEQ IN 100ML SWI (KRUN) 20 MEQ in IV 1 EA IV SCH ×4 (08:08→09:28)
[2019-08-27] MEDS: ENOXAPARIN 40 MG/0.4 ML SYRINGE (J1650) SC SCH (08:08)
--- NOTE | 2019-08-27 14:20 | IPNPDOC ---
Date Seen The patient was seen on 08/27/19. Progress Note SUBJECTIVE: 74-year-old male with past medical history of Alzheimer's dementia and multiple myeloma (on Revlimid) was initially admitted for combative behavior, requiring sedation. Patient developed influenza and aspiration pneumonia during his hospitalization, acute hypoxemic respiratory failure requiring intubation and mechanical ventilation. Patient was also hypotensive for a brief period of time, requiring low-dose vasopressors. He has been extubated, continues to have dysphagia with inability to 08/22/19 No acute events overnight, remains on mechanical ventilation, sedated with propofol, moving all extremities, unable to follow commands at this time, having increased secretions. 08/23/19 Patient seen in the morning, remains sedated on mechanical ventilation, propofol up to 30 mcg/kg/min, secretions have decreased in volume, continues to require less support from the ventilator on a daily basis, currently down to 40% FiO2 and PEEP of 5. Not moving or following commands at this time. 08/24/19 Patient extubated yesterday, did well post extubation, altered/agitated requiring Haldol overnight, O2 requirements increased overnight, currently on Vapotherm @ 50% FiO2. Patient awake, non-verbal, follows simple commands, appears somnolent w/ tachypnea. 08/25/19 More alert in the morning, following commands, improvement in ability to clear secretions, O2 requirements down to 35% FiO2 at this time, discussed w/ & son, will continue current medical management for now and monitor patient for the next 24 hours to see if there is improvement or aspiration continues/recurs. 08/26/19 Seen in the morning, more alert and responsive today, sitting in chair, decreased oral secretions overnight, did not require deep suctioning, remains on Vapotherm at 50% FiO2, no complaints at this time. 08/27/19 Seen in the morning, comfortable in chair, continues to have mild dyspnea with copius amount of sputum production, better cough reflex compared to yesterday, still requiring significant amount of suctioning, remains on Vapotherm at 50% FiO2. PHYSICAL EXAMINATION: VITAL SIGNS: Please see below. GENERAL: No distress HEENT: Normocephalic, moist mucus membranes CARDIOVASCULAR EXAMINATION: S1, S2, regular, no murmurs RESPIRATORY EXAMINATION: scattered rhonchi, no wheezing ABDOMINAL EXAMINATION: Soft, nontender, nondistended, positive bowel sounds EXTREMITIES: No edema SKIN: No rash NEUROLOGICAL EXAMINATION: unable to assess due to lack of ability PSYCHIATRIC EXAMINATION: Calm LABORATORY DATA, IMAGING STUDIES, MICROBIOLOGY: Please see below. ASSESSMENT AND PLAN: 74-year-old male with past medical history of Alzheimer's dementia and multiple myeloma admitted overnight for combative behavior and safety concerns. PROBLEMS: 1. Acute hypoxemic respiratory failure - secondary to aspiration pneumonia and influenza, extubated, intermittent microaspiration of oral secretions, continue meropenem and doxycycline, continue supplemental oxygen to maintain O2 sats between 88-92%, chest PT, hypertonic saline nebs. Clinically patient is make slow but steady progress, no further signs of significant aspiration at this time, will continue to monitor progression. 2. DURAN - Resolved with IV hydration 3. Afib/A flutter - rhythm alternating between NSR, Afib & Aflutter, currently in normal sinus rhythm, evaluated by Cardiology, Lovenox discontinued. 4. Alzheimer's dementia: Continue donepezil via NGT. 5. Multiple myeloma: hold Revlimid, Neutropenia has resolved w/ Neupogen which has now been discontinued. DVT prophylaxis: Lovenox GI prophylaxis: PPI VS, I&O, 24H, Fishbone Vital Signs/I&O Vital Signs Date Time Temp Pulse Resp B/P (MAP) Pulse Ox O2 Delivery O2 Flow Rate FiO2 08/27/19 12:00 20.0 40 08/27/19 12:00 99.0 65 27 121/59 (79) 96 HVNI-Vapotherm I&O- Last 24 Hours up to 6 AM 08/27/19 06:00 Intake Total 2710 ml Output Total 1105 ml Balance 1605 ml Laboratory Data 24H LABS Laboratory Tests 2 08/26/19 18:23: Bedside Glucose (Misc Panel) 106 08/27/19 05:23: Immature Granulocyte % (Auto) 1.0, Neutrophils (%) (Auto) 79.2H, Lymphocytes (%) (Auto) 10.1L, Monocytes (%) (Auto) 8.1H, Eosinophils (%) (Auto) 1.4, Basophils (%) (Auto) 0.2, Neutrophils # (Auto) 4.0, Lymphocytes # (Auto) 0.5L, Monocytes # (Auto) 0.4, Eosinophils # (Auto) 0.1, Basophils # (Auto) 0.0, Nucleated Red Blo od Cells % (auto) 0.0, Anion Gap 7L, Glomerular Filtration Rate > 60.0, Calcium Level 7.6L, Total Bilirubin 1.1H, Aspartate Amino Transf (AST/SGOT) 188H, Alanine Aminotransferase (ALT/SGPT) 299H, Alkaline Phosphatase 178H, Total Protein 5.2L, Albumin 1.9L, Albumin/Globulin Ratio 0.58L 08/27/19 12:17: Bedside Glucose (Misc Panel) 111H CBC/BMP Laboratory Tests 08/27/19 05:23 Microbiology Microbiology 08/24/19 Blood Culture - Preliminary, Resulted No Growth after 72 hours. All specime... 08/24/19 Blood Culture - Preliminary, Resulted No Growth after 72 hours. All specime... 08/21/19 Fungal Smear, Received Pending 08/21/19 Fungal Culture, Received Pending 08/21/19 Gram Stain - Final, Complete 08/21/19 Bronchoalveolar Lavage Culture - Final, Complete 08/21/19 Gram Stain - Final, Complete 08/21/19 Bronchoalveolar Lavage Culture - Final, Complete 08/19/19 Blood Culture - Final, Complete NO GROWTH AFTER 5 DAYS 08/18/19 Gram Stain - Final, Complete 08/18/19 Sputum Culture - Final, Complete 08/17/19 Blood Culture - Final, Complete NO GROWTH AFTER 5 DAYS 08/17/19 Blood Culture - Final, Complete NO GROWTH AFTER 5 DAYS JOSEPHINE JERONIMO MD Aug 27, 2019 14:20
[2019-08-27] MEDS: LOPERAMIDE 2 MG CAPLET NG PRN ×2 (15:10→19:58)
[2019-08-27 15:56] LABS: CLOSTRIDIUM DIFFICILE PCR NEGATIVE (NEGATIVE)
[2019-08-27] MEDS: DONEPEZIL 5 MG TAB NG SCH (19:59)
[2019-08-28] VITALS: BP 133/64
[2019-08-28] MEDS: IPRATROPIUM 0.5MG/ALBUTEROL 2.5MG INH SOL UD 3ML (DUONEB)(J7620) NEB PRN ×2 (00:20→04:08)
[2019-08-28] MEDS: SODIUM CHLORIDE HYPERTONIC 3% 15ML NEB SOL INH SCH ×3 (00:20→07:40)
[2019-08-28] MEDS: MEROPENEM INJ 1 GM in IV 1 EA IV SCH ×3 (03:03→18:37)
[2019-08-28 04:00] VITALS: BP 134/64
[2019-08-28 04:46] LABS: BASO % 0.2 % (0.0-1.0); EOS # 0.1 10^3/uL (0.0-0.5); EOS % 2.3 % (0.0-3.0); HEMATOCRIT 31.1 % (42.0-52.0); HEMOGLOBIN 10.5 g/dl (13.5-17.5); LYMPH # 0.5 10^3/uL (1.5-5.0); LYMPH % 9.1 % (24.0-44.0); MEAN CORPUSCULAR HEMOGLOBIN 32.7 pg (27.0-33.0); MEAN CORPUSCULAR HGB CONC 33.8 g/dl (32.0-36.5); MEAN CORPUSCULAR VOLUME 96.9 fl (80.0-96.0); MONO # 0.4 10^3/uL (0.0-0.8); MONO % 7.7 % (0.0-5.0); NEUTROPHILS # 4.5 10^3/uL (1.5-8.5); NEUTROPHILS % 79.6 % (36.0-66.0); PLATELET COUNT, AUTOMATED 269 10^3/uL (150-450); RED BLOOD COUNT 3.21 10^6/uL (4.30-6.10); WHITE BLOOD COUNT 5.6 10^3/uL (4.0-10.0)
[2019-08-28 05:07] LABS: ALBUMIN 1.8 GM/DL (3.2-5.2); ALT/SGPT 203 U/L (12-78); BILIRUBIN,TOTAL 0.9 MG/DL (0.2-1.0); BLOOD UREA NITROGEN 15 MG/DL (7-18); CALCIUM LEVEL 7.8 MG/DL (8.8-10.2); CARBON DIOXIDE LEVEL 23 MEQ/L (21-32); CHLORIDE LEVEL 112 MEQ/L (98-107); CREATININE FOR GFR 0.63 MG/DL (0.70-1.30); GLOMERULAR FILTRATION RATE > 60.0 (>42); GLUCOSE, FASTING 103 MG/DL (70-100); MAGNESIUM LEVEL 2.3 MG/DL (1.8-2.4); PHOSPHORUS LEVEL 1.9 MG/DL (2.5-4.9); POTASSIUM SERUM 3.4 MEQ/L (3.5-5.1); SODIUM LEVEL 142 MEQ/L (136-145); TOTAL PROTEIN 5.7 GM/DL (6.4-8.2)
[2019-08-28] MEDS: LOPERAMIDE 2 MG CAPLET NG PRN (05:28)
[2019-08-28] MEDS: ACETAMINOPHEN 325 MG/10.15 ML UDC GT PRN ×2 (05:28→20:51)
[2019-08-28] MEDS ORDERED: SODIUM PHOSPHATE INJ 20 MMOL in D5W 250 ML IV ONE (06:00)
[2019-08-28] MEDS ORDERED: POTASSIUM PHOSPHATE INJ 15 MMOL in D5W 250 ML IV ONE (06:00)
[2019-08-28] MEDS ORDERED: POTASSIUM CITRATE 1080 MG (10MEQ) TAB PO SCH (06:00)
--- NOTE | 2019-08-28 07:31 | REP ---
Portable chest, 07:00 a.m., single AP view with the patient semi upright: Comparison is 08/26/2019. There are infiltrates inferiorly in the left lung, left perihilar and right upper lobe that are essentially unchanged. The Cardiac size is upper normal, unchanged. There is an endotracheal tube terminating in the abdominal left upper quadrant satisfactory location, unchanged. There is a right IJ central venous catheter terminating in the superior vena cava in satisfactory location, unchanged. Impression: No significant interval change. Electronically Signed by Paok Mariee MD 08/28/2019 07:23 A
[2019-08-28 08:00] VITALS: BP 123/62
--- NOTE | 2019-08-28 09:33 | IPN ---
DATE: 08/28/2019 Mr. Dukes was reviewed today during bedside rounds and there were no overnight or over the weekend cardiac events reported by nursing or telemetry. VITALS: Temperature 98.9, pulse 65, respirations 24, blood pressure 134/64(with a MAP of 87), pulse ox 98% on Vapotherm on FiO2 of 40. Telemetry: There were no telemetry changes. Maintained sinus rhythm for multiple days. Rate currently controlled at 60-70 beats per minute and not on any beta blockers. LABORATORIES: WBC 5.6, hemoglobin 10.5, hematocrit 31.1, platelet 269. Chemistry: Sodium 142, potassium 3.4, chloride 112, carbon dioxide 23, anion gap 7, BUN 15, creatinine 0.63, glucose 103, AST coming down at 67, ALT coming down at 203, alkaline phosphatase down trending at 151 as well. CARDIAC MEDICATIONS: Lovenox 40 mg daily, which is deep venous thrombosis (DVT) prophylaxis. ASSESSMENT/PLAN: Mr. Dukes is a 65-year-old male who had dementia, multiple myeloma who initially presented with agitation and developed influenza and probable aspiration pneumonia. He was briefly intubated and extubated and is currently on Vapotherm saturating appropriately. He has been on telemetry since admission and initially was in atrial fibrillation with occasional bradycardia but then converted to sinus rhythm on 08/23/2019. We were consulted for his initial atrial fibrillation with occasional bradycardia. His telemetry was reviewed today and showed that he is maintaining sinus rhythm with appropriately heart rate despite not being on any cardiac medications. There was a question about anticoagulation. At this current time, will continue with Lovenox 40 mg which is deep venous thrombosis (DVT) prophylaxis and will continue to monitor his platelet levels. It has been improved since admission significantly to a high of 269. Once the patient is medically stable, we will review at that time about considering starting him on anticoagulation if needed. The baseline [id number] score 2. His only risk is his age being greater than 75, gives him 2 points. Because of his significant Alzheimer's and multiple myeloma, and never having a history of atrial fibrillation in the past, we will need to discuss about long-term anticoagulation if it is really necessary. At this current time, will continue to monitor the patient and continue with Lovenox 40 mg and we will follow the patient along with you from [facility].
[2019-08-28] MEDS: ENOXAPARIN 40 MG/0.4 ML SYRINGE (J1650) SC SCH (09:41)
[2019-08-28] MEDS: PANTOPRAZOLE 40MG INJ (PROTONIX) (C9113) IV SCH (09:41)
[2019-08-28] MEDS: DOXYCYCLINE HYCLATE 100 MG in D5W MINI-BAG PLUS 100 ML IV SCH ×2 (09:42→20:51)
[2019-08-28 12:00] VITALS: BP 149/71
[2019-08-28] MEDS ORDERED: SCOPOLAMINE 1MG TRANSDERMAL PATCH TOP SCH (14:00)
--- NOTE | 2019-08-28 15:18 | IPNPDOC ---
Date Seen The patient was seen on 08/28/19. Progress Note SUBJECTIVE: 74-year-old male with past medical history of Alzheimer's dementia and multiple myeloma (on Revlimid) was initially admitted for combative behavior, requiring sedation. Patient developed influenza and aspiration pneumonia during his hospitalization, acute hypoxemic respiratory failure requiring intubation and mechanical ventilation. Patient was also hypotensive for a brief period of time, requiring low-dose vasopressors. He has been extubated, continues to have dysphagia with inability to 08/22/19 No acute events overnight, remains on mechanical ventilation, sedated with propofol, moving all extremities, unable to follow commands at this time, having increased secretions. 08/23/19 Patient seen in the morning, remains sedated on mechanical ventilation, propofol up to 30 mcg/kg/min, secretions have decreased in volume, continues to require less support from the ventilator on a daily basis, currently down to 40% FiO2 and PEEP of 5. Not moving or following commands at this time. 08/24/19 Patient extubated yesterday, did well post extubation, altered/agitated requiring Haldol overnight, O2 requirements increased overnight, currently on Vapotherm @ 50% FiO2. Patient awake, non-verbal, follows simple commands, appears somnolent w/ tachypnea. 08/25/19 More alert in the morning, following commands, improvement in ability to clear secretions, O2 requirements down to 35% FiO2 at this time, discussed w/ & son, will continue current medical management for now and monitor patient for the next 24 hours to see if there is improvement or aspiration continues/recurs. 08/26/19 Seen in the morning, more alert and responsive today, sitting in chair, decreased oral secretions overnight, did not require deep suctioning, remains on Vapotherm at 50% FiO2, no complaints at this time. 08/27/19 Seen in the morning, comfortable in chair, continues to have mild dyspnea with copius amount of sputum production, better cough reflex compared to yesterday, still requiring significant amount of suctioning, remains on Vapotherm at 50% FiO2. 08/28/19 Patient more alert today, able to have a conversation at this time, oxygen requirements remain the same (Vapotherm 40% FiO2), continues to have copious amounts of oral secretions requiring deep suctioning. I discussed further treatment goals with patient's family, they would like to continue current management for now. PHYSICAL EXAMINATION: VITAL SIGNS: Please see below. GENERAL: No distress HEENT: Normocephalic, moist mucus membranes CARDIOVASCULAR EXAMINATION: S1, S2, regular, no murmurs RESPIRATORY EXAMINATION: scattered rhonchi, no wheezing ABDOMINAL EXAMINATION: Soft, nontender, nondistended, positive bowel sounds EXTREMITIES: No edema SKIN: No rash NEUROLOGICAL EXAMINATION: unable to assess due to lack of ability PSYCHIATRIC EXAMINATION: Calm LABORATORY DATA, IMAGING STUDIES, MICROBIOLOGY: Please see below. ASSESSMENT AND PLAN: 74-year-old male with past medical history of Alzheimer's dementia and multiple myeloma admitted overnight for combative behavior and safety concerns. PROBLEMS: 1. Acute hypoxemic respiratory failure - secondary to aspiration pneumonia and influenza, extubated, intermittent microaspiration of oral secretions, continue meropenem and doxycycline, continue supplemental oxygen to maintain O2 sats between 88-92%, chest PT, discontinued hypertonic saline nebs. 2. DURAN - Resolved with IV hydration 3. Afib/A flutter - rhythm alternating between NSR, Afib & Aflutter, currently in normal sinus rhythm, evaluated by Cardiology, no need for anticoagulation for now. 4. Alzheimer's dementia: Continue donepezil via NGT. 5. Multiple myeloma: hold Revlimid, Neutropenia has resolved w/ Neupogen which has now been discontinued. DVT prophylaxis: Lovenox GI prophylaxis: PPI VS, I&O, 24H, Fishbone Vital Signs/I&O Vital Signs Date Time Temp Pulse Resp B/P (MAP) Pulse Ox O2 Delivery O2 Flow Rate FiO2 08/28/19 12:00 93 HVNI-Vapotherm 30.0 40 08/28/19 12:00 98.8 77 32 149/71 (97) I&O- Last 24 Hours up to 6 AM 08/28/19 06:00 Intake Total 2935 ml Output Total 1255 ml Balance 1680 ml Laboratory Data 24H LABS Laboratory Tests 2 08/27/19 23:58: Bedside Glucose (Misc Panel) 120H 08/28/19 04:22: Immature Granulocyte % (Auto) 1.1, Neutrophils (%) (Auto) 79.6H, Lymphocytes (%) (Auto) 9.1L, Monocytes (%) (Auto) 7.7H, Eosinophils (%) (Auto) 2.3, Basophils (%) (Auto) 0.2, Neutrophils # (Auto) 4.5, Lymphocytes # (Auto) 0.5L, Monocytes # (Auto) 0.4, Eosinophils # (Auto) 0.1, Basophils # (Auto) 0.0, Nucleated Red Blood Cells % (auto) 0.0, Anion Gap 7L, Glomerular Filtration Rate > 60.0, Calcium Level 7.8L, Phosphorus Level 1.9L, Magnesium Level 2.3, Total Bilirubin 0.9, Aspartate Amino Transf (AST/SGOT) 67H, Alanine Aminotransferase (ALT/SGPT) 203H, Alkaline Phosphatase 151H, Total Protein 5.7L, Albumin 1.8L, Albumin/Globulin Ratio 0.46L 08/28/19 12:33: Bedside Glucose (Misc Panel) 95 CBC/BMP Laboratory Tests 08/28/19 04:22 Microbiology Microbiology 08/24/19 Blood Culture - Preliminary, Resulted No Growth after 72 hours. All specime... 08/24/19 Blood Culture - Preliminary, Resulted No Growth after 72 hours. All specime... 08/21/19 Fungal Smear, Received Pending 08/21/19 Fungal Culture, Received Pending 08/21/19 Gram Stain - Final, Complete 08/21/19 Bronchoalveolar Lavage Culture - Final, Complete 08/21/19 Gram Stain - Final, Complete 08/21/19 Bronchoalveolar Lavage Culture - Final, Complete 08/19/19 Blood Culture - Final, Complete NO GROWTH AFTER 5 DAYS 08/18/19 Gram Stain - Final, Complete 08/18/19 Sputum Culture - Final, Complete JOSEPHINE JERONIMO MD Aug 28, 2019 15:18
[2019-08-28 16:00] VITALS: BP 137/61
[2019-08-28 20:00] VITALS: BP 141/65
[2019-08-28] MEDS: DONEPEZIL 5 MG TAB NG SCH (20:51)
[2019-08-29] VITALS (7 sets, daily range): BP systolic 113–142; BP diastolic 57–63; O2SAT 94
[2019-08-29] MEDS: RAMELTEON 8 MG TAB (ROZEREM) NG PRN (02:25)
[2019-08-29] MEDS: MEROPENEM INJ 1 GM in IV 1 EA IV SCH ×3 (02:25→19:58)
[2019-08-29 04:37] LABS: HEMATOCRIT 32.6 % (42.0-52.0); MEAN CORPUSCULAR HEMOGLOBIN 32.5 pg (27.0-33.0); MEAN CORPUSCULAR HGB CONC 33.7 g/dl (32.0-36.5); MEAN CORPUSCULAR VOLUME 96.4 fl (80.0-96.0); PLATELET COUNT, AUTOMATED 301 10^3/uL (150-450); RED BLOOD COUNT 3.38 10^6/uL (4.30-6.10); WHITE BLOOD COUNT 6.6 10^3/uL (4.0-10.0)
[2019-08-29 05:03] LABS: BLOOD UREA NITROGEN 17 MG/DL (7-18); CALCIUM LEVEL 7.9 MG/DL (8.8-10.2); CARBON DIOXIDE LEVEL 27 MEQ/L (21-32); CHLORIDE LEVEL 111 MEQ/L (98-107); CREATININE FOR GFR 0.64 MG/DL (0.70-1.30); GLOMERULAR FILTRATION RATE > 60.0 (>42); GLUCOSE, FASTING 127 MG/DL (70-100); POTASSIUM SERUM 3.2 MEQ/L (3.5-5.1); SODIUM LEVEL 143 MEQ/L (136-145)
--- NOTE | 2019-08-29 07:27 | IPN ---
DATE OF SERVICE: 08/29/2019 Mr. Dukes continues to remain in sinus rhythm. I reviewed the telemetry tracing and no recurrence of atrial fibrillation was detected. At this point, he has been stable from arrhythmic perspective and I am going to sign off the consult. If there should be new arrhythmic problems, please feel free to contact me again. In the long horizon, I believe he can be discharged home without anticoagulation. I will tentatively schedule followup in our office in few weeks.
[2019-08-29] MEDS: ENOXAPARIN 40 MG/0.4 ML SYRINGE (J1650) SC SCH (07:59)
[2019-08-29] MEDS: PANTOPRAZOLE 40MG INJ (PROTONIX) (C9113) IV SCH (07:59)
[2019-08-29] MEDS: DOXYCYCLINE HYCLATE 100 MG in D5W MINI-BAG PLUS 100 ML IV SCH ×2 (08:00→21:53)
[2019-08-29] MEDS ORDERED: POTASSIUM CHLORIDE 10% LIQ 20 MEQ/15 ML UDC NG ONE (08:15)
[2019-08-29] MEDS: KCL 20MEQ IN 100ML SWI (KRUN) 20 MEQ in IV 1 EA IV SCH ×6 (09:47→12:51)
--- NOTE | 2019-08-29 19:21 | IPNPDOC ---
Date Seen The patient was seen on 08/29/19. Progress Note SUBJECTIVE: 74-year-old male with past medical history of Alzheimer's dementia and multiple myeloma (on Revlimid) was initially admitted for combative behavior, requiring sedation. Patient developed influenza and aspiration pneumonia during his hospitalization, acute hypoxemic respiratory failure requiring intubation and mechanical ventilation. Patient was also hypotensive for a brief period of time, requiring low-dose vasopressors. He has been extubated and continues to have dysphagia along with copious amounts of sputum production requiring deep suctioning. Patient's oxygen requirements have improved, no on HFNC at 6L. He remains alert, conversive and able to follow commands. He has no complaints at this time. PHYSICAL EXAMINATION: VITAL SIGNS: Please see below. GENERAL: No distress HEENT: Normocephalic, moist mucus membranes CARDIOVASCULAR EXAMINATION: S1, S2, regular, no murmurs RESPIRATORY EXAMINATION: scattered rhonchi, no wheezing ABDOMINAL EXAMINATION: Soft, nontender, nondistended, positive bowel sounds EXTREMITIES: No edema SKIN: No rash NEUROLOGICAL EXAMINATION: moving all extremities, unable to perform complete examination PSYCHIATRIC EXAMINATION: Calm LABORATORY DATA, IMAGING STUDIES, MICROBIOLOGY: Please see below. ASSESSMENT AND PLAN: 74-year-old male with past medical history of Alzheimer's dementia and multiple myeloma admitted overnight for combative behavior and safety concerns. PROBLEMS: 1. Acute hypoxemic respiratory failure - secondary to aspiration pneumonia and influenza, extubated, intermittent microaspiration of oral secretions, making very slow clinical improvement, continue meropenem and doxycycline, continue supplemental oxygen to maintain O2 sats between 88-92%, chest PT, PT/OT & OOB as tolerated. 2. DURAN - Resolved with IV hydration 3. Afib/A flutter - has remained in NSR for the past few days, evaluated by Cardiology, no need for anticoagulation. 4. Alzheimer's dementia: Continue donepezil via NGT. 5. Multiple myeloma: hold Revlimid, was neutropenic which resolved w/ Neupogen. DVT prophylaxis: Lovenox GI prophylaxis: PPI VS, I&O, 24H, Fishbone Vital Signs/I&O Vital Signs Date Time Temp Pulse Resp B/P (MAP) Pulse Ox O2 Delivery O2 Flow Rate FiO2 08/29/19 16:00 98.0 08/29/19 16:00 66 22 113/57 (75) 95 High Flow Cannula 6.0 08/29/19 04:00 40 I&O- Last 24 Hours up to 6 AM 08/29/19 06:00 Intake Total 2405 ml Output Total 1520 ml Balance 885 ml Laboratory Data 24H LABS Laboratory Tests 2 08/29/19 00:40: Bedside Glucose (Misc Panel) 117H 08/29/19 04:29: Nucleated Red Blood Cells % (auto) 0.0, Anion Gap 5L, Glomerular Filtration Rate > 60.0, Calcium Level 7.9L 08/29/19 12:16: Bedside Glucose (Misc Panel) 132H CBC/BMP Laboratory Tests 08/29/19 04:29 Microbiology Microbiology 08/24/19 Blood Culture - Final, Complete NO GROWTH AFTER 5 DAYS 08/24/19 Blood Culture - Final, Complete NO GROWTH AFTER 5 DAYS 08/21/19 Fungal Smear, Received Pending 08/21/19 Fungal Culture, Received Pending 08/21/19 Gram Stain - Final, Complete 08/21/19 Bronchoalveolar Lavage Culture - Final, Complete 08/21/19 Gram Stain - Final, Complete 08/21/19 Bronchoalveolar Lavage Culture - Final, Complete 08/19/19 Blood Culture - Final, Complete NO GROWTH AFTER 5 DAYS JOSEPHINE JERONIMO MD Aug 29, 2019 19:21
[2019-08-29] MEDS: DONEPEZIL 5 MG TAB NG SCH (21:52)
[2019-08-30] VITALS (8 sets, daily range): BP systolic 113–138; BP diastolic 56–73
[2019-08-30] MEDS: RAMELTEON 8 MG TAB (ROZEREM) NG PRN ×2 (02:22→22:33)
[2019-08-30] MEDS: MEROPENEM INJ 1 GM in IV 1 EA IV SCH ×3 (02:36→18:40)
[2019-08-30 05:38] LABS: ALBUMIN 2.1 GM/DL (3.2-5.2); ALT/SGPT 122 U/L (12-78); BILIRUBIN,TOTAL 0.9 MG/DL (0.2-1.0); BLOOD UREA NITROGEN 17 MG/DL (7-18); CALCIUM LEVEL 8.3 MG/DL (8.8-10.2); CARBON DIOXIDE LEVEL 28 MEQ/L (21-32); CHLORIDE LEVEL 109 MEQ/L (98-107); CREATININE FOR GFR 0.71 MG/DL (0.70-1.30); GLOMERULAR FILTRATION RATE > 60.0 (>42); GLUCOSE, FASTING 104 MG/DL (70-100); MAGNESIUM LEVEL 2.3 MG/DL (1.8-2.4); PHOSPHORUS LEVEL 1.9 MG/DL (2.5-4.9); POTASSIUM SERUM 3.8 MEQ/L (3.5-5.1); SODIUM LEVEL 143 MEQ/L (136-145); TOTAL PROTEIN 6.3 GM/DL (6.4-8.2)
[2019-08-30] MEDS: DOXYCYCLINE HYCLATE 100 MG in D5W MINI-BAG PLUS 100 ML IV SCH ×2 (08:50→22:11)
[2019-08-30] MEDS: ENOXAPARIN 40 MG/0.4 ML SYRINGE (J1650) SC SCH (08:50)
[2019-08-30] MEDS: PANTOPRAZOLE 40MG INJ (PROTONIX) (C9113) IV SCH (08:50)
[2019-08-30] MEDS ORDERED: POTASSIUM PHOSPHATE INJ 30 MMOL in D5W 500 ML IV ONE (10:00)
--- NOTE | 2019-08-30 19:38 | IPNPDOC ---
Date Seen The patient was seen on 08/30/19. Progress Note SUBJECTIVE: 74-year-old male with past medical history of Alzheimer's dementia and multiple myeloma (on Revlimid) was initially admitted for combative behavior, requiring sedation. Patient developed influenza and aspiration pneumonia during his hospitalization, acute hypoxemic respiratory failure requiring intubation and mechanical ventilation. Patient was also hypotensive for a brief period of time, requiring low-dose vasopressors. He has been extubated and continues to have dysphagia along with copious amounts of sputum production requiring deep suctioning. Patient's oxygen requirements have improved, no on HFNC at 6L. He remains alert, conversive and able to follow commands. He has no complaints at this time. 08/30/19 No acute events overnight, saturating well on NC @ 6L, resting comfortably in chair, significantly more alert today, able to have a reasonable conversation, without complaints, oral secretions have decreased in quantity but continues to require intermittent deep suctioning. PHYSICAL EXAMINATION: VITAL SIGNS: Please see below. GENERAL: No distress HEENT: Normocephalic, moist mucus membranes CARDIOVASCULAR EXAMINATION: S1, S2, regular, no murmurs RESPIRATORY EXAMINATION: scattered rhonchi, no wheezing ABDOMINAL EXAMINATION: Soft, nontender, nondistended, positive bowel sounds EXTREMITIES: No edema SKIN: No rash NEUROLOGICAL EXAMINATION: moving all extremities, significant generalized weakness appreciated, no focal deficits. PSYCHIATRIC EXAMINATION: Calm LABORATORY DATA, IMAGING STUDIES, MICROBIOLOGY: Please see below. ASSESSMENT AND PLAN: 74-year-old male with past medical history of Alzheimer's dementia and multiple myeloma admitted overnight for combative behavior and safety concerns. PROBLEMS: 1. Acute hypoxemic respiratory failure - secondary to aspiration pneumonia and influenza, extubated, significant drop in microaspiration of oral secretions, making slow clinical improvement, continue meropenem and doxycycline for now, continue supplemental oxygen to maintain O2 sats between 88-92%, chest PT, PT/OT & OOB as tolerated. 2. DURAN - Resolved with IV hydration 3. Afib/A flutter - has remained in NSR for the past few days, evaluated by Cardiology, no need for anticoagulation. 4. Alzheimer's dementia: Continue donepezil via NGT. 5. Multiple myeloma: hold Revlimid, was neutropenic which resolved w/ Neupogen. DVT prophylaxis: Lovenox GI prophylaxis: PPI VS, I&O, 24H, Fishbone Vital Signs/I&O Vital Signs Date Time Temp Pulse Resp B/P (MAP) Pulse Ox O2 Delivery O2 Flow Rate FiO2 08/30/19 18:30 100 Nasal Cannula 3.0 08/30/19 17:06 97.5 08/30/19 16:00 71 22 138/64 (88) 08/29/19 04:00 40 I&O- Last 24 Hours up to 6 AM 08/30/19 05:59 Intake Total 2380 ml Output Total 595 ml Balance 1785 ml Laboratory Data 24H LABS Laboratory Tests 2 08/30/19 02:32: Bedside Glucose (Misc Panel) 95 08/30/19 04:21: Anion Gap 6L, Glomerular Filtration Rate > 60.0, Calcium Level 8.3L, Phosphorus Level 1.9L, Magnesium Level 2.3, Total Bilirubin 0.9, Aspartate Amino Transf (AST/SGOT) 30, Alanine Aminotransferase (ALT/SGPT) 122H, Alkaline Phosphatase 144H, Total Protein 6.3L, Albumin 2.1L, Albumin/Globulin Ratio 0.50L 08/30/19 12:19: Bedside Glucose (Misc Panel) 120H CBC/BMP Laboratory Tests 08/30/19 04:21 Microbiology Microbiology 08/24/19 Blood Culture - Final, Complete NO GROWTH AFTER 5 DAYS 08/24/19 Blood Culture - Final, Complete NO GROWTH AFTER 5 DAYS 08/21/19 Fungal Smear, Received Pending 08/21/19 Fungal Culture, Received Pending 08/21/19 Gram Stain - Final, Complete 08/21/19 Bronchoalveolar Lavage Culture - Final, Complete 08/21/19 Gram Stain - Final, Complete 08/21/19 Bronchoalveolar Lavage Culture - Final, Complete JOSEPHINE JERONIMO MD Aug 30, 2019 19:37
[2019-08-30] MEDS: DONEPEZIL 5 MG TAB NG SCH (22:33)
[2019-08-31] VITALS (8 sets, daily range): BP systolic 92–149; BP diastolic 50–95; O2SAT 96
[2019-08-31] MEDS: MEROPENEM INJ 1 GM in IV 1 EA IV SCH ×3 (03:22→18:03)
[2019-08-31 05:03] LABS: HEMATOCRIT 35.3 % (42.0-52.0); HEMOGLOBIN 11.7 g/dl (13.5-17.5); MEAN CORPUSCULAR HEMOGLOBIN 32.2 pg (27.0-33.0); MEAN CORPUSCULAR HGB CONC 33.1 g/dl (32.0-36.5); MEAN CORPUSCULAR VOLUME 97.2 fl (80.0-96.0); PLATELET COUNT, AUTOMATED 356 10^3/uL (150-450); RED BLOOD COUNT 3.63 10^6/uL (4.30-6.10); WHITE BLOOD COUNT 4.6 10^3/uL (4.0-10.0)
[2019-08-31 05:22] LABS: BLOOD UREA NITROGEN 16 MG/DL (7-18); CALCIUM LEVEL 8.6 MG/DL (8.8-10.2); CARBON DIOXIDE LEVEL 32 MEQ/L (21-32); CHLORIDE LEVEL 106 MEQ/L (98-107); CREATININE FOR GFR 0.67 MG/DL (0.70-1.30); GLOMERULAR FILTRATION RATE > 60.0 (>42); GLUCOSE, FASTING 96 MG/DL (70-100); POTASSIUM SERUM 3.8 MEQ/L (3.5-5.1); SODIUM LEVEL 142 MEQ/L (136-145)
--- NOTE | 2019-08-31 08:07 | REP ---
Portable chest x-ray: Single view. History: Left lower lobe infiltrate. Comparison chest x-ray: August 28, 2019. Findings: The nasogastric tube has partially withdrawn and now terminates in the middle third of the esophagus. Oxygen delivery tubing is seen. EKG monitoring electrodes are noted. An infiltrate persists in the left base although there has been some clearing of this. No new infiltrate is seen. Pleural angles are sharp. Heart is not enlarged. Impression: NG tube partially withdrawn into the mid esophagus. Electronically Signed by Keo Mcmillan MD 08/31/2019 07:59 A
[2019-08-31] MEDS: DOXYCYCLINE HYCLATE 100 MG in D5W MINI-BAG PLUS 100 ML IV SCH ×2 (09:40→21:51)
[2019-08-31] MEDS: ENOXAPARIN 40 MG/0.4 ML SYRINGE (J1650) SC SCH (09:40)
[2019-08-31] MEDS: PANTOPRAZOLE 40MG INJ (PROTONIX) (C9113) IV SCH (09:40)
--- NOTE | 2019-08-31 13:02 | REP ---
Portable chest x-ray: Single view. 12:47 p.m. film. History: Confirm placement new NG tube. Comparison study: 07:05 a.m. on this date. Findings: Nasogastric tube is seen entering the left upper quadrant of the abdomen. Monitoring electrodes are seen. There is interstitial infiltrate in the left lower hemithorax unchanged. Impression: NG tube extends into the left upper quadrant. Infiltrate persists left base. Electronically Signed by Keo Mcmillan MD 08/31/2019 12:53 P
--- NOTE | 2019-08-31 19:42 | IPNPDOC ---
Date Seen The patient was seen on 08/31/19. Progress Note SUBJECTIVE: 74-year-old male with past medical history of Alzheimer's dementia and multiple myeloma (on Revlimid) was initially admitted for combative behavior, requiring sedation. Patient developed influenza and aspiration pneumonia during his hospitalization, acute hypoxemic respiratory failure requiring intubation and mechanical ventilation. Patient was also hypotensive for a brief period of time, requiring low-dose vasopressors. He has been extubated and continues to have dysphagia along with copious amounts of sputum production requiring deep suctioning. Patient's oxygen requirements have improved, no on HFNC at 6L. He remains alert, conversive and able to follow commands. He has no complaints at this time. 08/30/19 No acute events overnight, saturating well on NC @ 6L, resting comfortably in chair, significantly more alert today, able to have a reasonable conversation, without complaints, oral secretions have decreased in quantity but continues to require intermittent deep suctioning. 08/31/19 Patient comfortable in chair, without any complex at this time, currently on na elva cannula at 4 L, continues to have oral secretions that required deep suctioning, pulled out his NG tube which was replaced. PHYSICAL EXAMINATION: VITAL SIGNS: Please see below. GENERAL: No distress HEENT: Normocephalic, moist mucus membranes CARDIOVASCULAR EXAMINATION: S1, S2, regular, no murmurs RESPIRATORY EXAMINATION: scattered rhonchi, diminished in the bases, no wheezing ABDOMINAL EXAMINATION: Soft, nontender, nondistended, positive bowel sounds EXTREMITIES: No edema SKIN: No rash NEUROLOGICAL EXAMINATION: moving all extremities, significant generalized weakness appreciated, no focal deficits. PSYCHIATRIC EXAMINATION: Calm LABORATORY DATA, IMAGING STUDIES, MICROBIOLOGY: Please see below. ASSESSMENT AND PLAN: 74-year-old male with past medical history of Alzheimer's dementia and multiple myeloma admitted overnight for combative behavior and safety concerns. PROBLEMS: 1. Acute hypoxemic respiratory failure - secondary to aspiration pneumonia and influenza, extubated, significant drop in microaspiration of oral secretions, making slow clinical improvement, continue meropenem and doxycycline for now, continue supplemental oxygen to maintain O2 sats between 88-92%, chest PT, PT/OT & OOB as tolerated. 2. Afib/A flutter - has remained in NSR for the past few days, evaluated by Cardiology, no need for anticoagulation. 3. Alzheimer's dementia: Continue donepezil via NGT. 4. Multiple myeloma: hold Revlimid, was neutropenic which resolved w/ Neupogen. DVT prophylaxis: Lovenox GI prophylaxis: PPI VS, I&O, 24H, Fishbone Vital Signs/I&O Vital Signs Date Time Temp Pulse Resp B/P (MAP) Pulse Ox O2 Delivery O2 Flow Rate FiO2 08/31/19 18:00 90 28 90 Nasal Cannula 3.0 08/31/19 17:37 98.5 08/31/19 16:58 123/58 (79) 08/29/19 04:00 40 I&O- Last 24 Hours up to 6 AM0 08/31/19 06:00 Intake Total 2690 ml Balance 2690 ml Laboratory Data 24H LABS Laboratory Tests 2 08/31/19 04:20: Nucleated Red Blood Cells % (auto) 0.0, Anion Gap 4L, Glomerular Filtration Rate > 60.0, Calcium Level 8.6L, Procalcitonin 0.17 CBC/BMP Laboratory Tests 08/31/19 04:20 Microbiology Microbiology 08/24/19 Blood Culture - Final, Complete NO GROWTH AFTER 5 DAYS 08/24/19 Blood Culture - Final, Complete NO GROWTH AFTER 5 DAYS 08/21/19 Fungal Smear, Received Pending 08/21/19 Fungal Culture, Received Pending 08/21/19 Gram Stain - Final, Complete 08/21/19 Bronchoalveolar Lavage Culture - Final, Complete 08/21/19 Gram Stain - Final, Complete 08/21/19 Bronchoalveolar Lavage Culture - Final, Complete JOSEPHINE JERONIMO MD Aug 31, 2019 19:42
[2019-08-31] MEDS: LOPERAMIDE 2 MG CAPLET NG PRN (21:51)
[2019-08-31] MEDS: DONEPEZIL 5 MG TAB NG SCH (21:51)
[2019-08-31] MEDS: RAMELTEON 8 MG TAB (ROZEREM) NG PRN (22:19)
[2019-09-01] VITALS (15 sets, daily range): BP systolic 113–141; BP diastolic 62–69; O2SAT 93–99
[2019-09-01] MEDS: MEROPENEM INJ 1 GM in IV 1 EA IV SCH ×3 (02:27→18:54)
[2019-09-01] MEDS ORDERED: guaiFENesin ER 600 MG TAB PO SCH (09:00)
[2019-09-01] MEDS: DOXYCYCLINE HYCLATE 100 MG in D5W MINI-BAG PLUS 100 ML IV SCH ×2 (09:22→20:35)
[2019-09-01] MEDS: PANTOPRAZOLE 40MG INJ (PROTONIX) (C9113) IV SCH (09:23)
[2019-09-01] MEDS: ENOXAPARIN 40 MG/0.4 ML SYRINGE (J1650) SC SCH (09:23)
[2019-09-01] MEDS: guaiFENesin SYRUP 200 MG/10 ML UDC PO SCH ×3 (13:53→20:35)
[2019-09-01] MEDS: SLF 3 ML SYR IV SCH ×2 (14:00→20:36)
[2019-09-01] MEDS ORDERED: SLF 3 ML SYR IV PRN (15:15)
[2019-09-01] MEDS: LOPERAMIDE 2 MG CAPLET NG PRN (16:25)
[2019-09-01] MEDS: IPRATROPIUM 0.5MG/ALBUTEROL 2.5MG INH SOL UD 3ML (DUONEB)(J7620) NEB PRN (19:59)
[2019-09-01] MEDS: DONEPEZIL 5 MG TAB NG SCH (20:35)
--- NOTE | 2019-09-01 21:29 | IPNPDOC ---
Date Seen The patient was seen on 09/01/19. Progress Note SUBJECTIVE: 74-year-old male with past medical history of Alzheimer's dementia and multiple myeloma (on Revlimid) was initially admitted for combative b ehavior, requiring sedation. Patient developed influenza and aspiration pneumonia during his hospitalization, acute hypoxemic respiratory failure requiring intubation and mechanical ventilation. Patient was also hypotensive for a brief period of time, requiring low-dose vasopressors. He has been extubated and continues to have dysphagia along with copious amounts of sputum production requiring deep suctioning. Patient's oxygen requirements have improved, no on HFNC at 6L. He remains alert, conversive and able to follow commands. He has no complaints at this time. 08/30/19 No acute events overnight, saturating well on NC @ 6L, resting comfortably in chair, significantly more alert today, able to have a reasonable conversation, without complaints, oral secretions have decreased in quantity but continues to require intermittent deep suctioning. 08/31/19 Patient comfortable in chair, without any complex at this time, currently on nasal cannula at 4 L, continues to have oral secretions that required deep suctioning, pulled out his NG tube which was replaced. 09/01/19 Patient downgraded to PCU, comfortable in chair, mentation continues to improve on a daily basis, continues to have cough with decreased sputum production now, no other complaints. PHYSICAL EXAMINATION: VITAL SIGNS: Please see below. GENERAL: No distress HEENT: Normocephalic, moist mucus membranes CARDIOVASCULAR EXAMINATION: S1, S2, regular, no murmurs RESPIRATORY EXAMINATION: Left lower lobe rhonchi, diminished in the bases, no wheezing ABDOMINAL EXAMINATION: Soft, nontender, nondistended, positive bowel sounds EXTREMITIES: No edema SKIN: No rash NEUROLOGICAL EXAMINATION: moving all extremities, significant generalized weakness appreciated, no focal deficits. PSYCHIATRIC EXAMINATION: Calm LABORATORY DATA, IMAGING STUDIES, MICROBIOLOGY: Please see below. ASSESSMENT AND PLAN: 74-year-old male with past medical history of Alzheimer's dementia and multiple myeloma admitted overnight for combative behavior and safety concerns. PROBLEMS: 1. Acute hypoxemic respiratory failure - secondary to aspiration pneumonia and influenza, extubated, significant drop in microaspiration of oral secretions, slowly making improvement, discontinue meropenem and doxycycline, continue supplemental oxygen to maintain O2 sats between 88-92%, chest PT, start Mucinex, PT/OT & OOB as tolerated. 2. Afib/A flutter - has remained in NSR for the past few days, evaluated by Cardiology, no need for anticoagulation. 3. Alzheimer's dementia: Continue donepezil via NGT. 4. Multiple myeloma: hold Revlimid, was neutropenic which resolved w/ Neupogen. DVT prophylaxis: Lovenox GI prophylaxis: PPI VS, I&O, 24H, Fishbone Vital Signs/I&O Vital Signs Date Time Temp Pulse Resp B/P (MAP) Pulse Ox O2 Delivery O2 Flow Rate FiO2 09/01/19 20:00 98.6 84 18 141/68 (92) 96 Nasal Cannula 3.0 08/29/19 04:00 40 I&O- Last 24 Hours up to 6 AM 09/01/19 06:00 Intake Total 2250 ml Output Total 350 ml Balance 1900 ml Laboratory Data Microbiology Microbiology 08/24/19 Blood Culture - Final, Complete NO GROWTH AFTER 5 DAYS 08/24/19 Blood Culture - Final, Complete NO GROWTH AFTER 5 DAYS JOSEPHINE JERONIMO MD Sep 01, 2019 21:29
[2019-09-02] VITALS (18 sets, daily range): BP systolic 119–147; BP diastolic 60–75; O2SAT 90–100
[2019-09-02 05:25] LABS: HEMATOCRIT 32.6 % (42.0-52.0); HEMOGLOBIN 10.9 g/dl (13.5-17.5); MEAN CORPUSCULAR HEMOGLOBIN 32.4 pg (27.0-33.0); MEAN CORPUSCULAR HGB CONC 33.4 g/dl (32.0-36.5); PLATELET COUNT, AUTOMATED 376 10^3/uL (150-450); RED BLOOD COUNT 3.36 10^6/uL (4.30-6.10); WHITE BLOOD COUNT 5.2 10^3/uL (4.0-10.0)
[2019-09-02 05:54] LABS: ALBUMIN 2.1 GM/DL (3.2-5.2); ALT/SGPT 75 U/L (12-78); BILIRUBIN,TOTAL 0.6 MG/DL (0.2-1.0); BLOOD UREA NITROGEN 19 MG/DL (7-18); CALCIUM LEVEL 8.5 MG/DL (8.8-10.2); CARBON DIOXIDE LEVEL 30 MEQ/L (21-32); CHLORIDE LEVEL 109 MEQ/L (98-107); CREATININE FOR GFR 0.68 MG/DL (0.70-1.30); GLOMERULAR FILTRATION RATE > 60.0 (>42); GLUCOSE, FASTING 122 MG/DL (70-100); MAGNESIUM LEVEL 2.5 MG/DL (1.8-2.4); PHOSPHORUS LEVEL 2.6 MG/DL (2.5-4.9); POTASSIUM SERUM 3.4 MEQ/L (3.5-5.1); SODIUM LEVEL 143 MEQ/L (136-145); TOTAL PROTEIN 6.1 GM/DL (6.4-8.2)
[2019-09-02] MEDS: SLF 3 ML SYR IV SCH ×3 (06:32→21:21)
[2019-09-02] MEDS: IPRATROPIUM 0.5MG/ALBUTEROL 2.5MG INH SOL UD 3ML (DUONEB)(J7620) NEB PRN ×3 (08:19→19:49)
[2019-09-02] MEDS: ENOXAPARIN 40 MG/0.4 ML SYRINGE (J1650) SC SCH (10:02)
[2019-09-02] MEDS: PANTOPRAZOLE 40MG INJ (PROTONIX) (C9113) IV SCH (10:02)
[2019-09-02] MEDS: guaiFENesin SYRUP 200 MG/10 ML UDC PO SCH ×3 (10:02→21:21)
[2019-09-02] MEDS: POTASSIUM CHLORIDE 10% LIQ 20 MEQ/15 ML UDC NG SCH ×2 (10:02→15:09)
--- NOTE | 2019-09-02 17:46 | IPNPDOC ---
Date Seen The patient was seen on 09/02/19. Progress Note SUBJECTIVE: 74-year-old male with past medical history of Alzheimer's dementia and multiple myeloma (on Revlimid) was initially admitted for combative behavior, requiring sedation. Patient developed influenza and aspiration pneumonia during his hospitalization, acute hypoxemic respiratory failure requiring intubation and mechanical ventilation. Patient was also hypotensive for a brief period of time, requiring low-dose vasopressors. He has been extubated and continues to have dysphagia along with copious amounts of sputum production requiring deep suctioning. Patient's oxygen requirements have improved, no on HFNC at 6L. He remains alert, conversive and able to follow commands. He has no complaints at this time. 08/30/19 No acute events overnight, saturating well on NC @ 6L, resting comfortably in chair, significantly more alert today, able to have a reasonable conversation, without complaints, oral secretions have decreased in quantity but continues to require intermittent deep suctioning. 08/31/19 Patient comfortable in chair, without any complex at this time, currently on na elva cannula at 4 L, continues to have oral secretions that required deep suctioning, pulled out his NG tube which was replaced. 09/01/19 Patient downgraded to PCU, comfortable in chair, mentation continues to improve on a daily basis, continues to have cough with decreased sputum production now, no other complaints. 09/02/19 Patient seen in the morning, significantly more awake, alert and aware of his current surroundings, continues to make significant improvement in mentation and cognitive ability, requiring minimal supplemental oxygen at this time, continues to have cough with sputum production has decreased. He has no complains at this time. PHYSICAL EXAMINATION: VITAL SIGNS: Please see below. GENERAL: No distress HEENT: Normocephalic, moist mucus membranes CARDIOVASCULAR EXAMINATION: S1, S2, regular, no murmurs RESPIRATORY EXAMINATION: Left lower lobe rhonchi, diminished in the bases, no wheezing ABDOMINAL EXAMINATION: Soft, nontender, nondistended, positive bowel sounds EXTREMITIES: No edema SKIN: No rash NEUROLOGICAL EXAMINATION: moving all extremities, significant generalized weakness appreciated, no focal deficits. PSYCHIATRIC EXAMINATION: Calm LABORATORY DATA, IMAGING STUDIES, MICROBIOLOGY: Please see below. ASSESSMENT AND PLAN: 74-year-old male with past medical history of Alzheimer's dementia and multiple myeloma admitted overnight for combative behavior and safe ty concerns. PROBLEMS: 1. Acute hypoxemic respiratory failure - secondary to aspiration pneumonia and influenza, extubated, significant drop in microaspiration of oral secretions, continues making improvement, antibiotics have been discontinued, will trend Procalcitonin in a few days, continue supplemental oxygen to maintain O2 sats between 88-92%, chest PT, hypertonic saline nebs, continue Mucinex, PT/OT & OOB as tolerated. 2. Afib/A flutter - has remained in NSR since extubation, evaluated by Cardiology, no need for anticoagulation. 3. Alzheimer's dementia: Continue donepezil via NGT. 4. Multiple myeloma: hold Revlimid, was neutropenic which resolved w/ Neupogen. DVT prophylaxis: Lovenox GI prophylaxis: PPI VS, I&O, 24H, Fishbone Vital Signs/I&O Vital Signs Date Time Temp Pulse Resp B/P (MAP) Pulse Ox O2 Delivery O2 Flow Rate FiO2 09/02/19 16:00 97 Nasal Cannula 2.0 09/02/19 16:00 98.0 77 20 147/75 (99) 08/29/19 04:00 40 I&O- Last 24 Hours up to 6 AM 09/02/19 05:59 Intake Total 1960 ml Output Total 0 ml Balance 1960 ml Laboratory Data 24H LABS Laboratory Tests 2 09/02/19 05:12: Nucleated Red Blood Cells % (auto) 0.0, Anion Gap 4L, Glomerular Filtration Rate > 60.0, Calcium Level 8.5L, Phosphorus Level 2.6, Magnesium Level 2.5H, Total Bilirubin 0.6, Aspartate Amino Transf (AST/SGOT) 23, Alanine Aminotransferase (ALT/SGPT) 75, Alkaline Phosphatase 105, Total Protein 6.1L, Albumin 2.1L, Albumin/Globulin Ratio 0.53L CBC/BMP Laboratory Tests 09/02/19 05:12 Microbiology Microbiology 08/24/19 Blood Culture - Final, Complete NO GROWTH AFTER 5 DAYS 08/24/19 Blood Culture - Final, Complete NO GROWTH AFTER 5 DAYS JOSEPHINE JERONIMO MD Sep 02, 2019 17:46
[2019-09-02] MEDS: DONEPEZIL 5 MG TAB NG SCH (21:21)
[2019-09-02] MEDS: SODIUM CHLORIDE HYPERTONIC 3% 15ML NEB SOL INH SCH (23:45)
[2019-09-03] VITALS (14 sets, daily range): BP systolic 125–148; BP diastolic 60–99; O2SAT 94–100
[2019-09-03] MEDS: SODIUM CHLORIDE HYPERTONIC 3% 15ML NEB SOL INH SCH ×3 (04:51→23:19)
[2019-09-03] MEDS: SLF 3 ML SYR IV SCH ×3 (06:00→20:50)
[2019-09-03] MEDS: guaiFENesin SYRUP 200 MG/10 ML UDC PO SCH ×3 (10:18→20:50)
[2019-09-03] MEDS: LOPERAMIDE 2 MG CAPLET NG PRN ×2 (10:19→20:49)
[2019-09-03] MEDS: ENOXAPARIN 40 MG/0.4 ML SYRINGE (J1650) SC SCH (10:19)
[2019-09-03] MEDS: PANTOPRAZOLE 40MG INJ (PROTONIX) (C9113) IV SCH (10:19)
[2019-09-03] MEDS: IPRATROPIUM 0.5MG/ALBUTEROL 2.5MG INH SOL UD 3ML (DUONEB)(J7620) NEB PRN ×2 (11:34→19:44)
[2019-09-03] MEDS: RAMELTEON 8 MG TAB (ROZEREM) NG PRN (20:50)
[2019-09-03] MEDS: DONEPEZIL 5 MG TAB NG SCH (20:50)
--- NOTE | 2019-09-03 20:50 | IPNPDOC ---
Date Seen The patient was seen on 09/03/19. Progress Note SUBJECTIVE: 74-year-old male with past medical history of Alzheimer's dementia and multiple myeloma (on Revlimid) was initially admitted for combative b ehavior, requiring sedation. Patient developed influenza and aspiration pneumonia during his hospitalization, acute hypoxemic respiratory failure requiring intubation and mechanical ventilation. Patient was also hypotensive for a brief period of time, requiring low-dose vasopressors. He has been extubated and continues to have dysphagia along with copious amounts of sputum production requiring deep suctioning. Patient's oxygen requirements have improved, no on HFNC at 6L. He remains alert, conversive and able to follow commands. He has no complaints at this time. 08/30/19 No acute events overnight, saturating well on NC @ 6L, resting comfortably in chair, significantly more alert today, able to have a reasonable conversation, without complaints, oral secretions have decreased in quantity but continues to require intermittent deep suctioning. 08/31/19 Patient comfortable in chair, without any complex at this time, currently on nasal cannula at 4 L, continues to have oral secretions that required deep suctioning, pulled out his NG tube which was replaced. 09/01/19 Patient downgraded to PCU, comfortable in chair, mentation continues to improve on a daily basis, continues to have cough with decreased sputum production now, no other complaints. 09/02/19 Patient seen in the morning, significantly more awake, alert and aware of his current surroundings, continues to make significant improvement in mentation and cognitive ability, requiring minimal supplemental oxygen at this time, continues to have cough with sputum production has decreased. He has no complains at this time. 09/03/19 Unchanged from yesterday, no acute events overnight, without complaints at this time. PHYSICAL EXAMINATION: VITAL SIGNS: Please see below. GENERAL: No distress HEENT: Normocephalic, moist mucus membranes CARDIOVASCULAR EXAMINATION: S1, S2, regular, no murmurs RESPIRATORY EXAMINATION: Left lower lobe rhonchi, diminished in the bases, no wheezing ABDOMINAL EXAMINATION: Soft, nontender, nondistended, positive bowel sounds EXTREMITIES: No edema SKIN: No rash NEUROLOGICAL EXAMINATION: moving all extremities, significant generalized weakness appreciated, no focal deficits. PSYCHIATRIC EXAMINATION: Calm LABORATORY DATA, IMAGING STUDIES, MICROBIOLOGY: Please see below. ASSESSMENT AND PLAN: 74-year-old male with past medical history of Alzheimer's dementia and multiple myeloma admitted overnight for combative behavior and safety concerns. PROBLEMS: 1. Acute hypoxemic respiratory failure - secondary to aspiration pneumonia and influenza, extubated, significant drop in microaspiration of oral secretions, continues making improvement, antibiotics have been discontinued, will recheck Procalcitonin tomorrow, continue supplemental oxygen to maintain O2 sats between 88-92%, chest PT, hypertonic saline nebs, continue Mucinex, PT/OT & OOB as tolerated. Will re-attempt swallow eval tomorrow 2. Afib/A flutter - has remained in NSR since extubation, evaluated by Cardiology, no need for anticoagulation. 3. Alzheimer's dementia: Continue donepezil via NGT. 4. Multiple myeloma: hold Revlimid, was neutropenic which resolved w/ Neupogen. DVT prophylaxis: Lovenox GI prophylaxis: PPI VS, I&O, 24H, Fishbone Vital Signs/I&O Vital Signs Date Time Temp Pulse Resp B/P (MAP) Pulse Ox O2 Delivery O2 Flow Rate FiO2 09/03/19 19:44 Nasal Cannula 3.0 09/03/19 16:00 98.2 81 18 143/74 (97) 97 08/29/19 04:00 40 I&O- Last 24 Hours up to 6 AM 09/03/19 06:00 Intake Total 260 ml Output Total 0 ml Balance 260 ml Laboratory Data 24H LABS Laboratory Tests 2 09/03/19 03:59: Bedside Glucose (Misc Panel) 80L Microbiology Microbiology 08/24/19 Blood Culture - Final, Complete NO GROWTH AFTER 5 DAYS 08/24/19 Blood Culture - Final, Complete NO GROWTH AFTER 5 DAYS JOSEPHINE JERONIMO MD Sep 03, 2019 20:50
[2019-09-04] VITALS (18 sets, daily range): BP systolic 117–151; BP diastolic 69–74; O2SAT 91–99
[2019-09-04 05:37] LABS: HEMATOCRIT 34.7 % (42.0-52.0); HEMOGLOBIN 11.3 g/dl (13.5-17.5); MEAN CORPUSCULAR HEMOGLOBIN 32.1 pg (27.0-33.0); MEAN CORPUSCULAR HGB CONC 32.6 g/dl (32.0-36.5); MEAN CORPUSCULAR VOLUME 98.6 fl (80.0-96.0); PLATELET COUNT, AUTOMATED 446 10^3/uL (150-450); RED BLOOD COUNT 3.52 10^6/uL (4.30-6.10); WHITE BLOOD COUNT 4.4 10^3/uL (4.0-10.0)
[2019-09-04 06:09] LABS: BLOOD UREA NITROGEN 17 MG/DL (7-18); CALCIUM LEVEL 8.7 MG/DL (8.8-10.2); CARBON DIOXIDE LEVEL 31 MEQ/L (21-32); CHLORIDE LEVEL 109 MEQ/L (98-107); CREATININE FOR GFR 0.76 MG/DL (0.70-1.30); GLOMERULAR FILTRATION RATE > 60.0 (>42); GLUCOSE, FASTING 90 MG/DL (70-100); MAGNESIUM LEVEL 2.8 MG/DL (1.8-2.4); PHOSPHORUS LEVEL 3.3 MG/DL (2.5-4.9); POTASSIUM SERUM 3.6 MEQ/L (3.5-5.1); SODIUM LEVEL 146 MEQ/L (136-145)
[2019-09-04] MEDS: SLF 3 ML SYR IV SCH ×3 (06:21→22:00)
[2019-09-04] MEDS: SODIUM CHLORIDE HYPERTONIC 3% 15ML NEB SOL INH SCH (08:00)
[2019-09-04] MEDS ORDERED: POTASSIUM CHLORIDE 10% LIQ 20 MEQ/15 ML UDC NG ONE (08:00)
[2019-09-04] MEDS: ENOXAPARIN 40 MG/0.4 ML SYRINGE (J1650) SC SCH (09:30)
[2019-09-04] MEDS: PANTOPRAZOLE 40MG INJ (PROTONIX) (C9113) IV SCH (09:30)
[2019-09-04] MEDS: guaiFENesin SYRUP 200 MG/10 ML UDC PO SCH ×3 (09:30→21:32)
--- NOTE | 2019-09-04 12:39 | IPNPDOC ---
Date Seen The patient was seen on 09/04/19. Progress Note SUBJECTIVE: 74-year-old male with past medical history of Alzheimer's dementia and multiple myeloma (on Revlimid) was initially admitted for combative behavior, requiring sedation. Patient developed influenza and aspiration pneumonia during his hospitalization, acute hypoxemic respiratory failure requiring intubation and mechanical ventilation. Patient was also hypotensive for a brief period of time, requiring low-dose vasopressors. He has been extubated and continues to have dysphagia along with copious amounts of sputum production requiring deep suctioning. Patient's oxygen requirements have improved, no on HFNC at 6L. He remains alert, conversive and able to follow commands. He has no complaints at this time. 08/30/19 No acute events overnight, saturating well on NC @ 6L, resting comfortably in chair, significantly more alert today, able to have a reasonable conversation, without complaints, oral secretions have decreased in quantity but continues to require intermittent deep suctioning. 08/31/19 Patient comfortable in chair, without any complex at this time, currently on na elva cannula at 4 L, continues to have oral secretions that required deep suctioning, pulled out his NG tube which was replaced. 09/01/19 Patient downgraded to PCU, comfortable in chair, mentation continues to improve on a daily basis, continues to have cough with decreased sputum production now, no other complaints. 09/02/19 Patient seen in the morning, significantly more awake, alert and aware of his current surroundings, continues to make significant improvement in mentation and cognitive ability, requiring minimal supplemental oxygen at this time, continues to have cough with sputum production has decreased. He has no complains at this time. 09/03/19 Unchanged from yesterday, no acute events overnight, without complaints at this time. 09/04/19 Patient seen in the morning, comfortable, no acute events overnight, unchanged from yesterday, denies any dyspnea, continues to have dry cough, requiring intermittent deep suctioning, decreased in frequency from before. Patient is saturating very well on 2 L of nasal cannula, can likely be taken off of supplemental oxygen at this point. PHYSICAL EXAMINATION: VITAL SIGNS: Please see below. GENERAL: No distress HEENT: Normocephalic, moist mucus membranes CARDIOVASCULAR EXAMINATION: S1, S2, regular, no murmurs RESPIRATORY EXAMINATION: Left lower lobe rhonchi, diminished in the bases, no wheezing ABDOMINAL EXAMINATION: Soft, nontender, nondistended, positive bowel sounds EXTREMITIES: No edema SKIN: No rash NEUROLOGICAL EXAMINATION: moving all extremities, significant generalized weakness appreciated, no focal deficits. PSYCHIATRIC EXAMINATION: Calm LABORATORY DATA, IMAGING STUDIES, MICROBIOLOGY: Please see below. ASSESSMENT AND PLAN: 74-year-old male with past medical history of Alzheimer's dementia and multiple myeloma admitted overnight for combative behavior and safety concerns. PROBLEMS: 1. Acute hypoxemic respiratory failure - secondary to aspiration pneumonia and influenza, extubated, significant drop in microaspiration of oral secretions, continues making improvement, antibiotics have been discontinued, repeat pro- calcitonin pending, continue supplemental oxygen as needed to maintain O2 sats between 88-92%, chest PT, continue Mucinex, PT/OT & OOB as tolerated. Plan for modified barium swallow today. 2. Afib/A flutter - has remained in NSR since extubation, evaluated by Cardiology, no need for anticoagulation. 3. Alzheimer's dementia: Continue donepezil via NGT. 4. Multiple myeloma: hold Revlimid, was neutropenic which resolved w/ Neupogen. DVT prophylaxis: Lovenox GI prophylaxis: PPI VS, I&O, 24H, Fishbone Vital Signs/I&O Vital Signs Date Time Temp Pulse Resp B/P (MAP) Pulse Ox O2 Delivery O2 Flow Rate FiO2 09/04/19 12:00 97.6 64 19 117/71 (86) 94 Nasal Cannula 1.0 08/29/19 04:00 40 I&O- Last 24 Hours up to 6 AM 09/04/19 05:59 Intake Total 1130 ml Output Total 0 ml Balance 1130 ml Laboratory Data 24H LABS Laboratory Tests 2 09/04/19 05:08: Nucleated Red Blood Cells % (auto) 0.0, Anion Gap 6L, Glomerular Filtration Rate > 60.0, Calcium Level 8.7L, Phosphorus Level 3.3#, Magnesium Level 2.8H CBC/BMP Laboratory Tests 09/04/19 05:08 JOSEPHINE JERONIMO MD Sep 04, 2019 12:39
[2019-09-04] MEDS: DONEPEZIL 5 MG TAB NG SCH (21:32)
[2019-09-05] VITALS (9 sets, daily range): BP systolic 121–143; BP diastolic 56–78; O2SAT 90–96
[2019-09-05] MEDS: SLF 3 ML SYR IV SCH ×3 (05:37→21:00)
[2019-09-05] MEDS: ENOXAPARIN 40 MG/0.4 ML SYRINGE (J1650) SC SCH (08:45)
[2019-09-05] MEDS: guaiFENesin SYRUP 200 MG/10 ML UDC PO SCH ×3 (08:45→20:38)
[2019-09-05] MEDS: PANTOPRAZOLE 40MG INJ (PROTONIX) (C9113) IV SCH (08:45)
[2019-09-05] MEDS ORDERED: E-Z-PAQUE 96% w/w SUSP 176GM BTL As Ordered ONE (10:22)
[2019-09-05] MEDS ORDERED: VARIBAR NECTAR 40% w/v 240ML SUSP BTL As Ordered ONE (10:22)
[2019-09-05] MEDS ORDERED: VARIBAR PUDDING 40% w/v 230ML TUBE As Ordered ONE (10:22)
--- NOTE | 2019-09-05 11:50 | IPN ---
DATE: 09/05/2019 The patient remains confused, disoriented this morning pulling on his lines, still with mitts, uncooperative with physical therapy; however, the patient has been able to answer review of systems but nod to no when asked if he is in pain. He is still nothing by mouth for a swallow evaluation. He is being treated for influenza pneumonia. Atrial fibrillation (AFib) is rate controlled currently. He is still on nasogastric tube feedings. Temperature 97.1, pulse 67, respiratory rate 19, blood pressure 143/78, 97% on 1 liter nasal cannula, and generally disoriented. The patient has mitts on. He is not responsive to review of systems. Face is symmetric. No respiratory distress. Nasogastric tube in place. No jugular venous distention (JVD). No thyromegaly. Lungs diminished with bilateral rhonchi. Heart: S1, S2, regular rate and rhythm. Abdomen is soft, nontender and nondistended. Extremities: No pitting edema. Nasogastric tube in place. He is disoriented. Does not answer questions. LABORATORY DATA/IMAGING STUDIES: Labs reviewed. ASSESSMENT AND PLAN: 74-year-old with myeloma, Alzheimer's dementia, brought in by family due to violent and aggressive behavior at home, history of vertigo, eustachian tube dysfunction, and rhinosinusitis found to have influenza pneumonia, intubated, subsequently extubated with paroxysmal atrial fibrillation and bradycardia. CURRENT ISSUES: 1. Acute hypoxemic respiratory failure secondary to influenza and aspiration pneumonia still on nasogastric tube feedings. The patient is nothing by mouth awaiting a swallow evaluation today. Nutrition is consulted. The patient has completed antivirals and antibiotics. 2. Continued agitation currently with mitts and Haldol as needed, frequent reorientation, sitter if needed. 3. Dementia on chronic Aricept. 4. History of multiple myeloma with poor overall prognosis in light of chronic dementia. Disposition: Unable to be cared for at home. Will require placement most likely. 5. History of atrial flutter/atrial fibrillation (AFib). Currently sinus rhythm. No need for anticoagulation. 6. History of neutropenia, resolved. 7. History of thrombocytopenia, resolved. Addendum: per , health care proxy, and son re: feeding tube, "he wouldn't want that. He has directives about that." cell [phone] Patient's sister in law at the bedside, "well, we should get the family to decide on the feeding tube." plan: According to the patient's living will, signed and dated 08/12/2016: "I direct withholding or withdrawal of all treatment including nutrition and hydration, . . . if I shall sustain substantial and irreversible loss of mental capacity and: (a) I am unable to eat and drink without medical assistance and it is highlyh unlikely that I will regain the ability to do so." -need to call social work to schedule a family meeting to pursue patient's WRITTEN and signed wishes of NO FEEDING TUBE,and comfort measures. RENAED
[2019-09-05 12:18] LABS: HEMATOCRIT 40.5 % (42.0-52.0); MEAN CORPUSCULAR HEMOGLOBIN 32.4 pg (27.0-33.0); MEAN CORPUSCULAR HGB CONC 33.1 g/dl (32.0-36.5); MEAN CORPUSCULAR VOLUME 97.8 fl (80.0-96.0); PLATELET COUNT, AUTOMATED 529 10^3/uL (150-450); RED BLOOD COUNT 4.14 10^6/uL (4.30-6.10); WHITE BLOOD COUNT 5.7 10^3/uL (4.0-10.0)
[2019-09-05 12:23] LABS: HEMOGLOBIN 13.4 g/dl (13.5-17.5)
--- NOTE | 2019-09-05 12:51 | REP ---
Chest x-ray: Two views. History: Cough. Comparison chest x-ray: August 31, 2019. Findings: There is a persistent infiltrate in the left lower lobe consistent with pneumonia. There are a few increased markings again noted in the right base. No new infiltrate is seen. Oxygen delivery tubing is seen. An NG tube enters left upper quadrant of the abdomen. Impression: Persistent left lower lobe interstitial infiltrate consistent with pneumonia. No new infiltrate. NG tube enters left upper quadrant. Electronically Signed by Keo Mcmillan MD 09/05/2019 12:42 P
[2019-09-05 12:57] LABS: BLOOD UREA NITROGEN 20 MG/DL (7-18); CALCIUM LEVEL 9.2 MG/DL (8.8-10.2); CARBON DIOXIDE LEVEL 31 MEQ/L (21-32); CHLORIDE LEVEL 110 MEQ/L (98-107); CREATININE FOR GFR 0.87 MG/DL (0.70-1.30); GLOMERULAR FILTRATION RATE > 60.0 (>42); GLUCOSE, FASTING 91 MG/DL (70-100); POTASSIUM SERUM 4.3 MEQ/L (3.5-5.1); PREALBUMIN 25.6 MG/DL (20.0-40.0); SODIUM LEVEL 144 MEQ/L (136-145)
[2019-09-05] MEDS: SCOPOLAMINE 1MG TRANSDERMAL PATCH TOP SCH (15:29)
[2019-09-05] MEDS: RAMELTEON 8 MG TAB (ROZEREM) NG PRN (20:39)
[2019-09-05] MEDS: ACETAMINOPHEN 325 MG/10.15 ML UDC GT PRN (20:39)
[2019-09-05] MEDS: DONEPEZIL 5 MG TAB NG SCH (20:39)
[2019-09-06] MEDS: HALOPERIDOL 5 MG/ML VIAL (J1630) IV PRN (03:58)
[2019-09-06] MEDS: SLF 3 ML SYR IV SCH ×3 (03:58→20:38)
[2019-09-06 06:00] VITALS: BP 132/74
[2019-09-06] MEDS: PANTOPRAZOLE 40MG INJ (PROTONIX) (C9113) IV SCH (08:39)
[2019-09-06] MEDS: ENOXAPARIN 40 MG/0.4 ML SYRINGE (J1650) SC SCH (08:39)
[2019-09-06] MEDS: guaiFENesin SYRUP 200 MG/10 ML UDC PO SCH ×3 (08:39→20:38)
--- NOTE | 2019-09-06 09:14 | REP ---
COOKIE SWALLOW The procedure was performed under the direct supervision of Dr. Madrid. The procedure was performed with Naz Parrish from speech pathology present. 5 ml aliquots of pudding consistency barium was administered. There is aspiration. The detailed report of this examination will be provided by speech pathology. 1.3 minutes of fluoroscopy time was utilized for this procedure. Electronically Signed by KILO Reeves 09/05/2019 04:47 P Electronically Signed by Pako Madrid MD 09/06/2019 09:04 A
[2019-09-06 12:12] LABS: BASO % 0.4 % (0.0-1.0); EOS # 0.3 10^3/uL (0.0-0.5); EOS % 4.8 % (0.0-3.0); HEMATOCRIT 41.9 % (42.0-52.0); HEMOGLOBIN 13.5 g/dl (13.5-17.5); LYMPH # 1.8 10^3/uL (1.5-5.0); LYMPH % 32.5 % (24.0-44.0); MEAN CORPUSCULAR HEMOGLOBIN 31.8 pg (27.0-33.0); MEAN CORPUSCULAR HGB CONC 32.2 g/dl (32.0-36.5); MEAN CORPUSCULAR VOLUME 98.8 fl (80.0-96.0); MONO # 0.9 10^3/uL (0.0-0.8); MONO % 16.5 % (0.0-5.0); NEUTROPHILS # 2.5 10^3/uL (1.5-8.5); NEUTROPHILS % 45.1 % (36.0-66.0); PLATELET COUNT, AUTOMATED 533 10^3/uL (150-450); RED BLOOD COUNT 4.24 10^6/uL (4.30-6.10); WHITE BLOOD COUNT 5.6 10^3/uL (4.0-10.0)
--- NOTE | 2019-09-06 12:28 | IPN ---
DATE: 09/06/2019 The patient continues to be disoriented with no purposeful movement. She continues to have significant difficulty with clearing his secretions, quite congested, not following any commands, still with nasogastric tube placement. PHYSICAL EXAMINATION: Temperature 98.6, pulse 84, respiratory rate 18, blood pressure 132/74, 89% on 1 liter nasal cannula. Generally the patient is disoriented, not following commands, thrashing about. He is in mild respiratory distress requiring supplemental oxygen. He continues to have coarse rhonchi bilateral. No stridor on exam. No jugular venous distention (JVD) or thyromegaly. Air entry is diminished bilaterally. Heart: S1, S2, sinus rhythm. Abdomen is soft, nontender. Extremities have no pitting edema. The patient has mitts on. LABORATORY DATA: Pending. ASSESSMENT AND PLAN: This is a 74-year-old,DO NOT RESUSCITATE, DO NOT INTUBATE with living will showing no artificial nutrition or prolongation of life artificially admitted due to worsening dementia with aggressive and violent behavior for placement, history of vertigo, eustachian tube dysfunction, and rhinosinusitis developed acute hypoxic respiratory failure requiring intubation due to influenza pneumonia was subsequently extubated but was complicated with paroxysmal atrial fibrillation and bradycardia which resolved spontaneously on no anticoagulation. He continues to be in sinus rhythm with persistent dysphagia with failure to clear his secretions. The patient underwent a cookie swallow, modified Barium swallow on 09/05/2019 with significant aspiration and per speech pathologist unlikely to recover from this. The patient has the following acute issues: 1. Acute hypoxemic respiratory failure requiring supplemental oxygen due to desaturations below 88% on room air initially due to influenza pneumonia and recurrent aspiration, still nothing by mouth status with nasogastric tube feedings due to risk of aspiration and failure clear his secretions. The patient underwent a cookie swallow yesterday, which was failed. The patient completed antivirals and antibiotics. Continue with oxygen supplementation. Repeat chest x-ray shows no pulmonary edema, effusion with persistent left basilar infiltrate. The patient has been afebrile with no white count. Appears to be stabilized. 2. Influenza pneumonia. Completed antivirals and antibiotics. Currently still hypoxic requiring supplemental oxygen. 3. Acute encephalopathy. Multifactorial secondary to sepsis from influenza pneumonia, recurrent aspiration, hypoxemia with underlying progressive Alzheimer's dementia. The patient currently has mitts as he tends to remove IV lines and nasogastric tube feedings. He is continued on chronic Aricept through nasogastric tube. 4. History of multiple myeloma with history of severe neutropenia which has now resolved. 5. Mucus plugging and mal clearance of secretions. The patient required intubation and mechanical ventilation on 08/18/2019, and was subsequently extubated on 08/23/2019 but required doses of Haldol due to sundowning and agitation with interruption of medical treatment. 6. Septic shock due to influenza pneumonia has resolved. The patient did require a short course of vasopressors and has been off of vasopressor therapy. He did have a right internal jugular (IJ) triple lumen in place for venous access. The patient was treated with a full course of doxycycline and meropenem. Fungal cultures have been negative and [id number] and galactomannan is negative with negative urine legionella and mycoplasma. 7. Paroxysmal atrial fibrillation, resolved. The patient is not requiring any continued anticoagulation. He has remained in sinus rhythm. 8. Acute kidney injury has resolved. Currently with normal creatinine . The patient did receive some Lasix while he was in intensive care unit (ICU) due to pulmonary vascular congestion. Currently stable with no signs of pulmonary edema on repeat chest x-ray. He currently has a Hilton catheter for strict intake and output. He is managed with fluid through the nasogastric tube and tube feedings. 9. Diet: Nothing by mouth due to current aspiration, currently with nasogastric tube, tolerating tube feedings. 10. History of multiple myeloma. Previously on Revlimid as outpatient, which is currently being held. He did have an episode of neutropenia in the setting of septic shock due to aspiration pneumonia and influenza pneumonia treated with Neupogen but had recovered since. 11. CODE STATUS: He is DO NOT INTUBATE, DO NOT RESUSCITATE. DISPOSITION: According to the patient's living will signed and dated 08/12/2016, the patient does not want any artificial nutrition or hydration to be continued if it is prolonging his suffering. He currently is still on tube feedings via nasogastric tube. Living will has been revisited with the patient's son and the at the bedside. Patient and family services (PFS) has been consulted for assistance. We will not be proceeding with a feeding tube placement as the patient had specific instructions not to do this should he become incapacitated. Copy of the living will is in the chart. Disposition, according to the living will, which is available to us, the patient would not any artificial nutrition or hydration should he be unable to eat or drink on his own. The family however is asking for continued nutritional support via nasogastric tube. PFS has been consulted to assist in this matter. GIL
[2019-09-06 13:04] LABS: ALBUMIN 2.9 GM/DL (3.2-5.2); ALT/SGPT 72 U/L (12-78); BILIRUBIN,TOTAL 0.6 MG/DL (0.2-1.0); BLOOD UREA NITROGEN 26 MG/DL (7-18); CALCIUM LEVEL 9.1 MG/DL (8.8-10.2); CARBON DIOXIDE LEVEL 31 MEQ/L (21-32); CHLORIDE LEVEL 111 MEQ/L (98-107); CREATININE FOR GFR 0.84 MG/DL (0.70-1.30); GLOMERULAR FILTRATION RATE > 60.0 (>42); GLUCOSE, FASTING 122 MG/DL (70-100); POTASSIUM SERUM 3.8 MEQ/L (3.5-5.1); SODIUM LEVEL 147 MEQ/L (136-145); TOTAL PROTEIN 6.9 GM/DL (6.4-8.2)
--- NOTE | 2019-09-06 13:37 | REP ---
CT brain without contrast: History: Altered mental status. Comparison head CT study August 24, 2019. Findings: Digital assembler for puller over machine radiograph demonstrates a nasogastric tube. Bony calvarium is intact on bone window settings. Visualized paranasal sinuses are clear. No intraorbital abnormality is seen. There is mild vascular calcification in the distal internal carotid arteries. There is moderate generalized volume loss on soft-tissue window settings. No intracranial hemorrhage is seen. No evidence of infarct, mass, extra-axial fluid collection, or midline shift. Impression: Vascular calcification and diffuse moderate atrophy again noted. No acute intracranial abnormality. Electronically Signed by Keo Mcmillan MD 09/06/2019 01:28 P
[2019-09-06 14:00] VITALS: BP 143/89
[2019-09-06] MEDS: ACETAMINOPHEN 325 MG/10.15 ML UDC GT PRN ×2 (17:48→20:38)
[2019-09-06] MEDS: DONEPEZIL 5 MG TAB NG SCH (20:37)
[2019-09-06] MEDS: LOPERAMIDE 2 MG CAPLET NG PRN (20:37)
[2019-09-06] MEDS: RAMELTEON 8 MG TAB (ROZEREM) NG PRN (20:37)
[2019-09-06 22:00] VITALS: BP 139/89
[2019-09-07] MEDS: SLF 3 ML SYR IV SCH ×3 (00:23→22:53)
[2019-09-07] MEDS: HALOPERIDOL 5 MG/ML VIAL (J1630) IV PRN (00:23)
[2019-09-07] MEDS: ENOXAPARIN 40 MG/0.4 ML SYRINGE (J1650) SC SCH (09:07)
[2019-09-07] MEDS: PANTOPRAZOLE 40MG INJ (PROTONIX) (C9113) IV SCH (09:07)
[2019-09-07] MEDS: guaiFENesin SYRUP 200 MG/10 ML UDC PO SCH ×3 (09:07→22:43)
--- NOTE | 2019-09-07 12:34 | IPNPDOC ---
Text Note Date of Service The patient was seen on 09/07/19. NOTE Subjective: No any acute events overnight. Patient is oriented in place, not oriented in time. Denied any pain, palpitations, shortness of breath, fever, chills Objective: VITAL SIGNS: Please see below. GENERAL APPEARANCE: not in apparent distress HEENT: Normocephalic, atraumatic. Mucous members moist and pink, NG tube in place CARDIOVASCULAR: Regular rate and rhythm. No murmurs, rubs or gallops. Radial pulses are intact. There is no lower extremity edema LUNGS: Moderate crackles bilaterally ABDOMEN: Abdomen is soft and nontender. MUSCULOSKELETAL: Range of motion is intact in all 4 extremities NEUROLOGICAL: Cranial nerves II-12 are grossly intact. Speech is not dysarthric Patient is 74 years of past history Alzheimer's dementia presented hospital with sepsis secondary to viral pneumonia. During hospital stay patient received treatment with antibiotics and Tamiflu. Also patient was found to have severe oropharyngeal dysfunction, NG tube was placed for feeding Acute hypoxic respiratory failure Resolved Patient is in high risk of aspiration due to severe oropharyngeal dysfunction I discussed with family the next step in management because patient's living will indicates no feeding tube in future. His daughter Za will discuss with other family members hospice option. Community-acquired pneumonia Secondary to influence infection with bacterial coinfection Patient completed the course of antibiotics Metabolic encephalopathy Improved Patient was able to answer my questions today about his symptoms, but still he is not oriented in time Severe oropharyngeal dysfunction Most likely secondary to advanced dementia We'll await family decision about PEG tube Paroxysmal A. fib Patient is on sinus rhythm Heart rate is under control DURAN Resolved VS,Fishbone, I+O VS, Fishbone, I+O Vital Signs Date Time Temp Pulse Resp B/P (MAP) Pulse Ox O2 Delivery O2 Flow Rate FiO2 09/07/19 00:00 2.0 09/06/19 22:00 96.8 70 20 139/89 (106) 96 Nasal Cannula I&O- Last 24 Hours up to 6 AM 09/07/19 06:00 Intake Total 1860 ml Balance 1860 ml NETTE MONREAL DO Sep 07, 2019 12:34
[2019-09-07 20:36] VITALS: BP 140/73
[2019-09-07] MEDS: DONEPEZIL 5 MG TAB NG SCH (22:42)
[2019-09-07] MEDS ORDERED: CHLORASEPTIC SPRAY MT PRN (22:45)
[2019-09-08 01:52] VITALS: BP 140/73
[2019-09-08 06:00] VITALS: BP 137/78
[2019-09-08] MEDS: SLF 3 ML SYR IV SCH ×3 (06:33→20:24)
[2019-09-08] MEDS: ENOXAPARIN 40 MG/0.4 ML SYRINGE (J1650) SC SCH (08:56)
[2019-09-08] MEDS: guaiFENesin SYRUP 200 MG/10 ML UDC PO SCH ×3 (08:56→20:21)
[2019-09-08] MEDS: PANTOPRAZOLE 40MG INJ (PROTONIX) (C9113) IV SCH (08:56)
--- NOTE | 2019-09-08 11:36 | IPNPDOC ---
Text Note Date of Service The patient was seen on 09/08/19. NOTE Subjective: No any acute events overnight. Denied any pain, palpitations, shortness of breath, fever, chills. Objective: VITAL SIGNS: Please see below. GENERAL APPEARANCE: not in apparent distress HEENT: Normocephalic, atraumatic. Mucous members moist and pink, NG tube in place CARDIOVASCULAR: Regular rate and rhythm. No murmurs, rubs or gallops. Radial pulses are intact. There is no lower extremity edema LUNGS: Moderate crackles bilaterally ABDOMEN: Abdomen is soft and nontender. MUSCULOSKELETAL: Range of motion is intact in all 4 extremities NEUROLOGICAL: Cranial nerves II-12 are grossly intact. Speech is not dysarthric Patient is 74 years of past history Alzheimer's dementia presented hospital with sepsis secondary to viral pneumonia. During hospital stay patient received treatment with antibiotics and Tamiflu. Also patient was found to have severe oropharyngeal dysfunction, NG tube was placed for feeding Acute hypoxic respiratory failure Resolved Patient is in high risk of aspiration due to severe oropharyngeal dysfunction I discussed with family the next step in management because patient's living will indicates no feeding tube in future. His daughter Za will discuss with other family members hospice option. Await family decision Community-acquired pneumonia Secondary to influence infection with bacterial coinfection Patient completed the course of antibiotics Metabolic encephalopathy Improved Patient was able to answer my questions today about his symptoms, but still he is not oriented in time Severe oropharyngeal dysfunction Most likely secondary to advanced dementia We'll await family decision about PEG tube Paroxysmal A. fib Patient is on sinus rhythm Heart rate is under control DURAN Resolved VS,Fishbone, I+O VS, Fishbone, I+O Vital Signs Date Time Temp Pulse Resp B/P (MAP) Pulse Ox O2 Delivery O2 Flow Rate FiO2 09/08/19 06:00 80 18 137/78 (97) 97 Nasal Cannula 2.0 09/07/19 20:36 98.0 I&O- Last 24 Hours up to 6 AM 09/08/19 06:00 Intake Total 835 ml Output Total 70 ml Balance 765 ml NETTE MONREAL DO Sep 08, 2019 11:36
[2019-09-08 14:56] VITALS: BP 119/79
[2019-09-08] MEDS: SCOPOLAMINE 1MG TRANSDERMAL PATCH TOP SCH (16:00)
[2019-09-08] MEDS: RAMELTEON 8 MG TAB (ROZEREM) NG PRN (20:21)
[2019-09-08] MEDS: DONEPEZIL 5 MG TAB NG SCH (20:21)
[2019-09-08] MEDS: ACETAMINOPHEN 325 MG/10.15 ML UDC GT PRN (20:21)
[2019-09-08 22:00] VITALS: BP 126/77
[2019-09-09] MEDS: LOPERAMIDE 2 MG CAPLET NG PRN (00:38)
[2019-09-09] MEDS: ACETAMINOPHEN 325 MG/10.15 ML UDC GT PRN ×3 (00:38→20:38)
[2019-09-09 00:53] VITALS: BP 175/86
[2019-09-09] MEDS: SLF 3 ML SYR IV SCH ×3 (04:24→20:38)
[2019-09-09 06:00] VITALS: BP 126/77
[2019-09-09] MEDS: IPRATROPIUM 0.5MG/ALBUTEROL 2.5MG INH SOL UD 3ML (DUONEB)(J7620) NEB PRN ×2 (07:55→11:55)
[2019-09-09] MEDS: guaiFENesin SYRUP 200 MG/10 ML UDC PO SCH ×3 (08:32→20:38)
[2019-09-09] MEDS: PANTOPRAZOLE 40MG INJ (PROTONIX) (C9113) IV SCH (08:32)
[2019-09-09] MEDS: LevoFLOXacin 750 MG TABLET PO SCH (08:33)
[2019-09-09] MEDS: ENOXAPARIN 40 MG/0.4 ML SYRINGE (J1650) SC SCH (08:33)
--- NOTE | 2019-09-09 08:43 | REP ---
Clinical: Pneumonia. Technique: Portable upright AP view of the chest. Comparison: 09/05/2019. Findings: Nasogastric tube extends below left hemidiaphragm. Mediastinum and cardiac silhouette are normal. Lung muse demonstrate diffuse chronic interstitial changes with superimposed left lower lobe infiltrate compatible with pneumonia and unchanged from prior examination. No effusion. No pneumothorax. Skeletal structures stable. Impression: 1. Left lower lobe infiltrate compatible with pneumonia unchanged. 2. No new acute process. Electronically Signed by Kali Disla MD 09/09/2019 08:35 A
[2019-09-09 08:50] LABS: HEMATOCRIT 42.8 % (42.0-52.0); HEMOGLOBIN 13.9 g/dl (13.5-17.5); MEAN CORPUSCULAR HEMOGLOBIN 31.9 pg (27.0-33.0); MEAN CORPUSCULAR HGB CONC 32.5 g/dl (32.0-36.5); MEAN CORPUSCULAR VOLUME 98.2 fl (80.0-96.0); PLATELET COUNT, AUTOMATED 411 10^3/uL (150-450); RED BLOOD COUNT 4.36 10^6/uL (4.30-6.10); WHITE BLOOD COUNT 18.4 10^3/uL (4.0-10.0)
[2019-09-09 09:10] LABS: BLOOD UREA NITROGEN 32 MG/DL (7-18); CALCIUM LEVEL 9.2 MG/DL (8.8-10.2); CARBON DIOXIDE LEVEL 28 MEQ/L (21-32); CHLORIDE LEVEL 115 MEQ/L (98-107); CREATININE FOR GFR 1.05 MG/DL (0.70-1.30); GLOMERULAR FILTRATION RATE > 60.0 (>42); GLUCOSE, FASTING 119 MG/DL (70-100); POTASSIUM SERUM 3.7 MEQ/L (3.5-5.1); SODIUM LEVEL 147 MEQ/L (136-145)
[2019-09-09 09:26] LABS: LYMPHOCYTES 24 % (16-44); MONOCYTES 1 % (0-5); NEUTROPHILS 59 % (28-66); PLATELET ESTIMATE NORMAL (NORMAL)
[2019-09-09 09:27] LABS: ANISOCYTOSIS 1+
--- NOTE | 2019-09-09 09:52 | IPNPDOC ---
Text Note Date of Service The patient was seen on 09/09/19. NOTE Subjective: Patient developed fever overnight, subsided after Tylenol. Also p atient increased dyspnea with oxygen requirements 5 L. Objective: VITAL SIGNS: Please see below. GENERAL APPEARANCE: not in apparent distress HEENT: Normocephalic, atraumatic. Mucous members moist and pink, NG tube in place CARDIOVASCULAR: Regular rate and rhythm. No murmurs, rubs or gallops. Radial pulses are intact. There is no lower extremity edema LUNGS: Moderate crackles bilaterally ABDOMEN: Abdomen is soft and nontender. MUSCULOSKELETAL: Range of motion is intact in all 4 extremities NEUROLOGICAL: Cranial nerves II-12 are grossly intact. Speech is not dysarthric Patient is 74 years of past history Alzheimer's dementia presented hospital with sepsis secondary to viral pneumonia. During hospital stay patient received treatment with antibiotics and Tamiflu. Also patient was found to have severe oropharyngeal dysfunction, NG tube was placed for feeding Aspiration pneumonitis Patient developed fever overnight most likely secondary to aspiration associated with increased dyspnea I talked to his son Real about treatment. He states that until his father is in the hospital he want us to treat pt with antibiotics and oropharyngeal suction CBC, blood culture, levofloxacin by mouth Acute hypoxic respiratory failure Resolved Patient is in high risk of aspiration due to severe oropharyngeal dysfunction I discussed with son the next step in management yesterday. Family would like the patient to be discharged on Wednesday to home with hospice care. Community-acquired pneumonia Secondary to viral infection with bacterial coinfection Patient completed the course of antibiotics Metabolic encephalopathy mildly improved he is not oriented in time Severe oropharyngeal dysfunction Most likely secondary to advanced dementia Paroxysmal A. fib Patient is on sinus rhythm Heart rate is under control DURAN Resolved VS,Fishbone, I+O VS, Fishbone, I+O Laboratory Tests 09/09/19 08:31 Vital Signs Date Time Temp Pulse Resp B/P (MAP) Pulse Ox O2 Delivery O2 Flow Rate FiO2 09/09/19 08:00 5.0 09/09/19 06:30 98.3 09/09/19 06:00 112 21 126/77 (93) 92 Nasal Cannula I&O- Last 24 Hours up to 6 AM 09/09/19 06:00 Intake Total 2480 ml Balance 2480 ml NETTE MONREAL DO Sep 09, 2019 09:52
[2019-09-09 13:56] VITALS: BP 130/76
[2019-09-09] MEDS: AMPICILLIN SOD/SULBACTAM SOD 1.5 GM in D5W MINI-BAG PLUS 50 ML IV SCH (18:10)
[2019-09-09 22:00] VITALS: BP 132/77
[2019-09-10] MEDS: AMPICILLIN SOD/SULBACTAM SOD 1.5 GM in D5W MINI-BAG PLUS 50 ML IV SCH ×2 (00:48→05:30)
[2019-09-10] MEDS: SLF 3 ML SYR IV SCH ×3 (00:48→21:53)
[2019-09-10] MEDS: ACETAMINOPHEN 325 MG/10.15 ML UDC GT PRN ×2 (05:30→20:16)
[2019-09-10] MEDS: LevoFLOXacin 750 MG TABLET PO SCH (05:30)
[2019-09-10 06:00] VITALS: BP 132/70
[2019-09-10 07:53] LABS: HEMATOCRIT 39.5 % (42.0-52.0); HEMOGLOBIN 12.7 g/dl (13.5-17.5); MEAN CORPUSCULAR HEMOGLOBIN 31.9 pg (27.0-33.0); MEAN CORPUSCULAR HGB CONC 32.2 g/dl (32.0-36.5); MEAN CORPUSCULAR VOLUME 99.2 fl (80.0-96.0); PLATELET COUNT, AUTOMATED 369 10^3/uL (150-450); RED BLOOD COUNT 3.98 10^6/uL (4.30-6.10); WHITE BLOOD COUNT 9.2 10^3/uL (4.0-10.0)
[2019-09-10] MEDS: PANTOPRAZOLE 40MG INJ (PROTONIX) (C9113) IV SCH (09:30)
[2019-09-10] MEDS: ENOXAPARIN 40 MG/0.4 ML SYRINGE (J1650) SC SCH (09:30)
[2019-09-10] MEDS: guaiFENesin SYRUP 200 MG/10 ML UDC PO SCH ×3 (09:30→20:16)
--- NOTE | 2019-09-10 12:03 | IPNPDOC ---
Text Note Date of Service The patient was seen on 09/10/19. NOTE Subjective: No any acute events overnight. Fever resolved. Patient was alert and awake in the morning, he was able to answer the questions Objective: VITAL SIGNS: Please see below. GENERAL APPEARANCE: not in apparent distress HEENT: Normocephalic, atraumatic. Mucous members moist and pink, NG tube in place CARDIOVASCULAR: Regular rate and rhythm. No murmurs, rubs or gallops. Radial pulses are intact. There is no lower extremity edema LUNGS: Clear to auscultation ABDOMEN: Abdomen is soft and nontender. MUSCULOSKELETAL: Range of motion is intact in all 4 extremities NEUROLOGICAL: Cranial nerves II-12 are grossly intact. Speech is not dysarthric Patient is 74 years of past history Alzheimer's dementia presented hospital with sepsis secondary to viral pneumonia. During hospital stay patient received treatment with antibiotics and Tamiflu. Also patient was found to have severe oropharyngeal dysfunction, NG tube was placed for feeding Aspiration pneumonitis Patient developed severe dyspnea and fever on 09/09/19. I talked to his son Real about treatment. He states that until his father is in the hospital he wants us to treat pt with antibiotics and oropharyngeal suction Improved, patient afebrile Leukocytosis improved Continue antibiotic therapy Acute hypoxic respiratory failure Patient is in high risk of aspiration due to severe oropharyngeal dysfunction I discussed with son the next step in management. Family would like the patient to be discharged on Wednesday to home with hospice care. Community-acquired pneumonia Secondary to viral infection with bacterial coinfection Patient completed the course of antibiotics Metabolic encephalopathy mildly improved Severe oropharyngeal dysfunction Most likely secondary to advanced dementia Continue NG tube feeding Paroxysmal A. fib Patient is on sinus rhythm Heart rate is under control DURAN Resolved VS,Fishbone, I+O VS, Fishbone, I+O Laboratory Tests 09/10/19 07:38 Vital Signs Date Time Temp Pulse Resp B/P (MAP) Pulse Ox O2 Delivery O2 Flow Rate FiO2 09/10/19 07:20 5.0 09/10/19 06:00 98.4 73 21 132/70 (90) 96 Nasal Cannula I&O- Last 24 Hours up to 6 AM 09/10/19 06:00 Intake Total 1060 ml Balance 1060 ml NETTE MONREAL DO Sep 10, 2019 12:03
[2019-09-10] MEDS: RAMELTEON 8 MG TAB (ROZEREM) NG PRN (20:15)
[2019-09-10 22:00] VITALS: BP 115/72
[2019-09-11] MEDS: SLF 3 ML SYR IV SCH ×3 (05:17→20:30)
[2019-09-11] MEDS: LevoFLOXacin 750 MG TABLET PO SCH (05:27)
[2019-09-11 06:00] VITALS: BP 134/76
[2019-09-11] MEDS: PANTOPRAZOLE 40MG INJ (PROTONIX) (C9113) IV SCH (08:54)
[2019-09-11] MEDS: ENOXAPARIN 40 MG/0.4 ML SYRINGE (J1650) SC SCH (08:54)
[2019-09-11] MEDS: guaiFENesin SYRUP 200 MG/10 ML UDC PO SCH ×3 (08:54→20:26)
[2019-09-11] MEDS: SCOPOLAMINE 1MG TRANSDERMAL PATCH TOP SCH (14:34)
[2019-09-11] MEDS: RAMELTEON 8 MG TAB (ROZEREM) NG PRN (20:26)
[2019-09-11] MEDS: ACETAMINOPHEN 325 MG/10.15 ML UDC GT PRN (20:27)
[2019-09-12 06:00] VITALS: BP 147/83
[2019-09-12] MEDS: LevoFLOXacin 750 MG TABLET PO SCH (06:36)
[2019-09-12] MEDS: ACETAMINOPHEN 325 MG/10.15 ML UDC GT PRN (06:36)
[2019-09-12] MEDS: SLF 3 ML SYR IV SCH (06:38)
[2019-09-12] MEDS: PANTOPRAZOLE 40MG INJ (PROTONIX) (C9113) IV SCH ×2 (09:00→09:49)
[2019-09-12] MEDS: guaiFENesin SYRUP 200 MG/10 ML UDC PO SCH (09:49)
[2019-09-12] MEDS: ENOXAPARIN 40 MG/0.4 ML SYRINGE (J1650) SC SCH (09:49)
[2019-09-12] MEDS ORDERED: HYOS125TA PO (11:19)
[2019-09-12] MEDS ORDERED: LORA0.5T5 PO ×2 (11:19→11:23)
[2019-09-12] MEDS ORDERED: MORP20SO3 PO ×2 (11:19→11:23)
--- NOTE | 2019-09-12 11:31 | DS.PDOC ---
Discharge Summary General Date of Admission Aug 13, 2019 at 23:48 Date of Discharge 09/12/19 Discharge Summary PROCEDURES PERFORMED DURING STAY: [None]. ADMITTING DIAGNOSES: Aspiration pneumonitis Community-acquired pneumonia Metabolic encephalopathy Acute hypoxic respiratory failure Severe oropharyngeal dysfunction Paroxysmal A. fib DURAN DISCHARGE DIAGNOSES: Aspiration pneumonitis Community-acquired pneumonia Metabolic encephalopathy Acute hypoxic respiratory failure Severe oropharyngeal dysfunction Paroxysmal A. fib DURAN COMPLICATIONS/CHIEF COMPLAINT: Alzheimers Dementia W/Behavioral Disturbance. HISTORY OF PRESENT ILLNESS: Patient is 74 years of past history Alzheimer's dementia presented hospital with sepsis secondary to viral pneumonia. During hospital stay patient received treatment with antibiotics and Tamiflu. Also patient was found to have severe oropharyngeal dysfunction, NG tube was placed for feeding. Patient's living will stated against tube feeding. According to family wishes patient was discharged home with hospice care HOSPITAL COURSE: See above DISCHARGE MEDICATIONS: Please see below. ALLERGIES: Please see below. PHYSICAL EXAMINATION ON DISCHARGE: VITAL SIGNS: Please see below. Objective: VITAL SIGNS: Please see below. GENERAL APPEARANCE: not in apparent distress HEENT: Normocephalic, atraumatic. Mucous members moist and pink, NG tube in place CARDIOVASCULAR: Regular rate and rhythm. No murmurs, rubs or gallops. Radial pulses are intact. There is no lower extremity edema LUNGS: Clear to auscultation ABDOMEN: Abdomen is soft and nontender. MUSCULOSKELETAL: Range of motion is intact in all 4 extremities NEUROLOGICAL: Cranial nerves II-12 are grossly intact. Speech is not dysarthric LABORATORY DATA: Please see below. IMAGING: Clinical: Pneumonia. Technique: Portable upright AP view of the chest. Comparison: 09/05/2019. Findings: Nasogastric tube extends below left hemidiaphragm. Mediastinum and cardiac silhouette are normal. Lung muse demonstrate diffuse chronic interstitial changes with superimposed left lower lobe infiltrate compatible with pneumonia and unchanged from prior examination. No effusion. No pneumothorax. Skeletal structures stable. Impression: 1. Left lower lobe infiltrate compatible with pneumonia unchanged. 2. No new acute process. PROGNOSIS: Guarded ACTIVITY: [As tolerated]. DIET: Regular DISCHARGE PLAN: Hospice at home DISPOSITION: . See above ITEMS TO FOLLOWUP ON ON OUTPATIENT: Hospice care DISCHARGE CONDITION: [Stable]. TIME SPENT ON DISCHARGE: Greater than 20 minutes. Vital Signs/I&Os Vital Signs Date Time Temp Pulse Resp B/P (MAP) Pulse Ox O2 Delivery O2 Flow Rate FiO2 09/12/19 10:05 5.0 09/12/19 06:00 98.4 87 16 147/83 (104) 18 Nasal Cannula I&O- Last 24 Hours up to 6 AM 09/12/19 06:00 Intake Total 960 ml Output Total 0 ml Balance 960 ml Microbiology Microbiology 09/09/19 Blood Culture - Preliminary, Resulted No Growth after 72 hours. All specime... Discharge Medications Scheduled PRN Hyoscyamine Sulfate (Hyoscyamine Sulfate) 0.125 Mg Tab.subl, 0.125 MG PO Q4HP PRN for TERMINAL SECRETIONS Use sublingually if unable to swallow Lorazepam (Lorazepam) 0.5 Mg Tablet, 0.5 MG PO Q4HP PRN for ANXIETY/AGITATION Use sublingually if unable to swallow Morphine Sulfate (Morphine Sulfate) 100 Mg/5 Ml Solution, 0.25-1 ML PO Q2H PRN for PAIN OR DYSPNEA Use sublingually if unable to swallow Allergies Coded Allergies: No Known Allergies (Unverified , 08/13/19) NETTE MONREAL DO Sep 12, 2019 11:31
== END 2019-09-12 13:05 | disposition hospice, home (50) | DRG 56 ==
LOC: M ED 19:30 → M ED INP 23:48 → ENRESERV 08-14 14:32 → M MSPAV 08-14 16:40 → M ICU 08-17 21:27 → M PCU 08-31 20:29 → M MS5PR 09-05 15:39
PROVIDERS: ADMIT General Practice; ATTEND Internal Medicine
PROC: 5A1955Z Respiratory Ventilation, Greater than 96 Consecutive Hours (ICD-10-PCS; principal; 2019-08-18)
PROC: 0B9F8ZX Drainage of Right Lower Lung Lobe, Via Natural or Artificial Opening Endoscopic, Diagnostic (ICD-10-PCS; 2019-08-21)
PROC: 0B9J8ZX Drainage of Left Lower Lung Lobe, Via Natural or Artificial Opening Endoscopic, Diagnostic (ICD-10-PCS; 2019-08-21)
PROC: 02HV33Z Insertion of Infusion Device into Superior Vena Cava, Percutaneous Approach (ICD-10-PCS; 2019-08-21)
DX: G30.9 Alzheimer's disease, unspecified (principal); J96.01 Acute respiratory failure with hypoxia; A41.9 Sepsis, unspecified organism; J12.9 Viral pneumonia, unspecified; G93.41 Metabolic encephalopathy; R65.21 Severe sepsis with septic shock; J15.9 Unspecified bacterial pneumonia; J09.X1 Influenza due to identified novel influenza A virus with pneumonia; F02.81 Dementia in other diseases classified elsewhere, unspecified severity, with behavioral disturbance; C90.00 Multiple myeloma not having achieved remission; J90 Pleural effusion, not elsewhere classified; N17.9 Acute kidney failure, unspecified; I48.92 Unspecified atrial flutter; E87.0 Hyperosmolality and hypernatremia; Z79.82 Long term (current) use of aspirin; Z79.899 Other long term (current) drug therapy; N40.0 Benign prostatic hyperplasia without lower urinary tract symptoms; E55.9 Vitamin D deficiency, unspecified; Z92.21 Personal history of antineoplastic chemotherapy; R05 Cough; D70.9 Neutropenia, unspecified; J30.9 Allergic rhinitis, unspecified; I95.9 Hypotension, unspecified; I48.0 Paroxysmal atrial fibrillation; R13.12 Dysphagia, oropharyngeal phase; Z66 Do not resuscitate